=== PATIENT | male | born 1945 | race Asian ===

== ENCOUNTER 2019-11-26 12:04 | Outpatient (CLI) | payer MEDICARE, SELFPAY | END 2019-11-26 12:05 | disposition home or self-care (01) | PROVIDERS: PCP Family Medicine; Visit Provider Internal Medicine Critical Care Medicine | DX: J84.112 Idiopathic pulmonary fibrosis (principal) | CPT/HCPCS: 36415; 86038; 86331; 86606; 86609 ==

== ENCOUNTER 2019-11-28 09:48 | Outpatient (CLI) | payer MEDICARE, SELFPAY ==
--- NOTE | ~2019-11-28 | CT_ITS ---
EXAMINATION: CT chest high resolution [place] DATE: 11/28/2019 10:17 INDICATION: Idiopathic pulmonary fibrosis TECHNIQUE: Computed tomography (CT) of the chest was performed without intravenous contrast. The dose -length product (DLP) was 167.23 mGy-cm. Automated exposure control and iterative reconstruction tech Shookque were employed. COMPARISON: 05/01/2019 FINDINGS: There are stable widespread subpleural and reticular opacities with a mid and lower lung zo ne predominance. Honeycombing is also seen in many of the affected areas. Calcified pleural plaques a re present which can be seen in the setting of prior asbestos exposure. There is no pleural effusion or pneumothorax. The heart size is normal. There is a moderate-sized sliding hiatal hernia. Stones ar e present in the nondistended gallbladder. There is a 4.4 cm cyst of the left kidney with thin improvement intern al septation and calcification. There are changes of aortic valve replacement. There is mild thoracic spondylosis. IMPRESSION: 1. Stable chronic interstitial lung disease in a pattern of usual interstitial pneumonia. Reviewed, dictated and finalized at location A.
== END 2019-11-28 09:49 | disposition home or self-care (01) ==
LOC: ANHIMG 09:55
PROVIDERS: PCP Family Medicine; Visit Provider Internal Medicine Critical Care Medicine
DX: J84.112 Idiopathic pulmonary fibrosis (principal)
CPT/HCPCS: 71250

== ENCOUNTER 2020-02-18 14:35 | Outpatient (CLI) | payer MEDICARE, SELFPAY ==
[2020-02-18 14:59] VITALS: PULSE 90; O2SAT 95
[2020-02-18 15:00] VITALS: PULSE 100; O2SAT 88
[2020-02-18 15:02] VITALS: PULSE 102; O2SAT 89
[2020-02-18 15:03] VITALS: PULSE 100; O2SAT 90
--- NOTE | 2020-02-18 15:05 | HOMEO2EVAL ---
Home Oxygen Evaluation RC: Home Oxygen (O2) Evaluation Start: 02/18/20 14:58 Freq: Status: Active Protocol: RPE Activity Type Activity Date Activity User E-Sign Co-Sign Detail Recorded Client Recorded Date Recorded By Document 02/18/20 14:59 KRM [id number] 02/18/20 15:00 KRM Document 02/18/20 15:00 KRM [id number] 02/18/20 15:05 KRM Document 02/18/20 15:02 KRM [id number] 02/18/20 15:05 KRM Document 02/18/20 15:03 KRM [id number] 02/18/20 15:05 KRM 02/18/20 02/18/20 02/18/20 14:59 15:00 15:02 Home O2 Evaluation Test Phase Resting Exercise Exercise Oxygen Delivery Room Air Room Air Nasal Cannula Oxygen Flow Rate (L/min) 1 Pulse Oximetry (90-100 %) 95 88 L 89 L Pulse Rate (60-100 beats/min) 90 100 102 H Activity Tolerance Excellent Ambulation Distance (feet) Home Oxygen Evaluation Comments Treatment Charges O2 Evaluation 02/18/20 15:03 Home O2 Evaluation Test Phase Exercise Oxygen Delivery Nasal Cannula Oxygen Flow Rate (L/min) 2 Pulse Oximetry (90-100 %) 90 Pulse Rate (60-100 beats/min) 100 Activity Tolerance Ambulation Distance (feet) 250 Home Oxygen Evaluation Comments 2 L WITH ACTIVITY Treatment Charges
== END 2020-02-18 14:36 | disposition home or self-care (01) ==
PROVIDERS: PCP Family Medicine; Visit Provider Internal Medicine Critical Care Medicine
DX: R09.02 Hypoxemia (principal); J84.112 Idiopathic pulmonary fibrosis; R06.02 Shortness of breath
CPT/HCPCS: 94618

== ENCOUNTER 2020-03-15 11:43 | Outpatient (CLI) | payer MEDICARE, SELFPAY ==
[2020-03-15 12:33] LABS: Alanine Aminotransferase 13 U/L (4-50); Alkaline Phosphatase 39 U/L (38-126); Aspartate Amino Transferase 31 U/L (17-59); Bilirubin,Total 0.4 mg/dL (0.2-1.3)
== END 2020-03-15 11:44 | disposition home or self-care (01) ==
PROVIDERS: PCP Family Medicine; Visit Provider Internal Medicine Critical Care Medicine
DX: J84.112 Idiopathic pulmonary fibrosis (principal)
CPT/HCPCS: 36415; 80076

== ENCOUNTER 2021-01-13 13:31 | Outpatient (CLI) | payer MEDICARE, SELFPAY ==
--- NOTE | ~2021-01-13 | XR_ITS ---
EXAMINATION: XR lumbar spine min 4V, XR sacroiliac joints min 3V EXAM DATE: 01/13/2021 13:59 (accession [id number]), 01/13/2021 14:00 (accession [id number]) INDICATION: M54.30 - Sciatica, right-sided low back pain, no known recent injury. TECHNIQUE: Lumber spine frontal, lateral, bilateral oblique projections. Coned down frontal and lat eral L5-S1 lumbar projections for interpretation. Sacroiliac joints frontal and bilateral oblique pr ojections. There are no prior studies for comparison. FINDINGS: There are no acute fractures identified. Vertebral body heights are maintained. There is mo derate disc disease at L1-2 and L2-3, mild to moderate at the other lumbar levels. There is moderate mid lumbar, moderate to severe lower lumbar facet arthropathy. The vertebral bodies are aligned in th e AP dimension. There is mild lumbar levoscoliosis. Sacrum, sacroiliac joints, sacral arcuate line s are intact. No spondylolysis suspected. Moderate aortic arteriosclerosis. IMPRESSION: 1. Moderate to severe lumbar spondylosis. 2. Unremarkable sacrum. Reviewed, dictated and finalized at location A. IMPRESSION: 1. Moderate to severe lumbar spondylosis. 2. Unremarkable sacrum.
== END 2021-01-13 13:32 | disposition home or self-care (01) ==
PROVIDERS: PCP Physician Assistant; Visit Provider Physician Assistant
DX: M47.816 Spondylosis without myelopathy or radiculopathy, lumbar region (principal); M54.30 Sciatica, unspecified side
CPT/HCPCS: 72110; 72202

== ENCOUNTER 2021-02-25 09:34 | Outpatient (CLI) | payer MEDICARE, SELFPAY ==
--- NOTE | ~2021-02-25 | CT_ITS ---
EXAMINATION: CT chest high resolution wo ri DATE: 02/25/2021 10:29 INDICATION: Idiopathic pulmonary fibrosis TECHNIQUE: Computed tomography (CT) of the chest was performed without intravenous contrast. The dose -length product was 177.37 mGy-cm. Automated exposure control and iterative reconstruction technique were employed. COMPARISON: CT dated 11/28/2019 FINDINGS: Cardiomegaly. There is atherosclerosis. There is progression of extensive course interstiti al lung disease of the periphery, consistent with idiopathic pulmonary fibrosis. Findings have progre ssed most significantly in the left lower lobe. There is honeycombing present out predominantly affec ting the lower lobes. There are calcified bilateral pleural plaques, consistent with previous asbesto s exposure. Heart size is normal. Stable left renal cyst with internal septation and calcification. T here are surgical changes of aortic valve replacement. Mild thoracic spondylosis. No pneumothorax. Th ere are gallstones. IMPRESSION: 1. Interval progression of severe chronic interstitial lung disease consistent with idiopathic pulmon caron fibrosis. Reviewed, dictated and finalized at location B. IMPRESSION: 1. Interval progression of severe chronic interstitial lung disease consistent with idiopathic pulmonary fibrosis.
--- NOTE | 2021-02-25 10:20 | PCRCNOTE ---
PT CAME IN FOR PFT, PT UNABLE TO PERFORM. PT HAD CONTINUOUS COUGH. DR. AWAD'S OFFICE NOTIFIED, SPOKE WITH SHIRA.
== END 2021-02-25 09:35 | disposition home or self-care (01) ==
PROVIDERS: PCP Family Medicine; Visit Provider Internal Medicine Critical Care Medicine
DX: J84.112 Idiopathic pulmonary fibrosis (principal)
CPT/HCPCS: 71250

== ENCOUNTER 2021-08-19 13:24 | Outpatient (CLI) | payer MEDICARE, SELFPAY ==
--- NOTE | ~2021-08-19 | CT_ITS ---
EXAMINATION: CT chest high resolution [facility] EXAM DATE: 08/19/2021 13:48 INDICATION: J84.112 - Idiopathic pulmonary fibrosis . TECHNIQUE: Spiral CT of the chest without contrast. HRCT. Axial, coronal and sagittal images of the c hest were reviewed. Coronal maximum intensity pixel images of chest reviewed. The dose-length produ ct (DLP) for this examination was 139.75 mGy-cm. The exposure was tailored according to patient size (auto mA exposure control), and iterative reconstruction (ASIR) was used as additional dose reductio n technique. Comparison is made to prior examination from 02/25/2021, 05/01/2019. FINDINGS: Going back to last several years, there is continued mild progression in the severe usual i nterstitial pneumonitis pattern interstitial lung disease. Some possible etiologies include collagen vascular disease, chronic hypersensitivity pneumonitis, medications/drugs, prior viral infection, asb estosis, or can be idiopathic. Calcified pleural plaques along the left hemidiaphragm, could indicate prior asbestos exposure. There are no pleural or pericardial effusions. Tracheobronchial tree is p atent. There is no mediastinal, hilar or axillary lymphadenopathy. There is no pneumothorax. Aort ic valve replacement. Heart normal in size. There are sternotomy wires, and cardiac/coronary surgic al changes. Correlate with prior history. There is small sliding gastroesophageal hiatal hernia. Mul tiple small gallstones. Incompletely imaged left renal lesion, imaged portion is consistent with a 3. 4 cm cyst. There is thoracic spondylosis without osteoblastic or osteolytic lesions identified. IMPRESSION: 1. Severe chronic interstitial lung disease, mild continued progression. 2. Small hiatal hernia. 3. Cholelithiasis. Reviewed, dictated and finalized at location B.
== END 2021-08-19 13:25 | disposition home or self-care (01) ==
PROVIDERS: PCP Family Medicine; Visit Provider Internal Medicine Critical Care Medicine
DX: J84.112 Idiopathic pulmonary fibrosis (principal); K44.9 Diaphragmatic hernia without obstruction or gangrene; K80.20 Calculus of gallbladder without cholecystitis without obstruction; J84.9 Interstitial pulmonary disease, unspecified
CPT/HCPCS: 71250

== ENCOUNTER 2022-07-21 14:58 | Outpatient (CLI) | payer MEDICARE, SELFPAY ==
--- NOTE | ~2022-07-21 | CT_ITS ---
EXAMINATION: CT chest high resolution wo co DATE: 07/21/2022 15:27 INDICATION: UIP TECHNIQUE: Computed tomography (CT) of the chest was performed without intravenous contrast. Addition al 3D reconstructions utilizing coronal maximum intensity projection (MIP) were performed. Automated exposure control and iterative reconstruction technique were employed. The dose-length product was 19 5.69 mGy-cm. COMPARISON: Chest CT dated 08/19/2021 FINDINGS: No interval change in bilateral peripheral and lower lung predominant irregular septal line thickenin g, patchy consolidation, honeycombing and volume loss in the lower lobes consistent with usual inters titial pneumonia (UIP) pattern chronic interstitial lung disease. Unilateral calcified pleural plaque s in the left hemithorax consistent with prior exudative effusion. Couple small calcified lymph nodes in the right right middle lobe along with calcified right hilar and mediastinal lymph nodes consiste nt with old granulomatous disease. No new airspace opacities, pleural effusion or pneumothorax. Heart size is normal. Atherosclerotic coronary artery calcifications. Postoperative change of prior median sternotomy and coronary artery bypass grafting and aortic valve repair. There is retained epicardial pacemaker leads. Enlargement of the central pulmonary arteries consistent with pulmonary 2 hypertens ion. Small sliding-type hiatal hernia. Thoracic aorta is normal in caliber. No pathologically enlarge d abdominal or pelvic lymphadenopathy. Numerous calcified gallstones nearly filling the partially dec ompressed, otherwise normal-appearing gallbladder. Partial rim calcification along a 3.0 cm left shivani l cyst. There is calcified atherosclerosis of the aorta and bilateral renal arteries. Mild thoracic s pondylosis. Unchanged chronic T10 compression fracture with 20% anterior vertebral body height loss. IMPRESSION: 1. No significant interval change in severe chronic interstitial lung disease with usual interstitial pneumonia (UIP) pattern. 2. Enlargement of the central pulmonary arteries consistent with portal venous hypertension. 3. Small sliding-type hiatal hernia. 4. Cholelithiasis. Reviewed, dictated and finalized at location B. IMPRESSION: 1. No significant interval change in severe chronic interstitial lung disease w ith usual interstitial pneumonia (UIP) pattern. 2. Enlargement of the central pulmonary arteries consistent with portal venous hypertension. 3. Small sliding-type hiatal hernia. 4. Cholelithiasis.
== END 2022-07-21 14:59 | disposition home or self-care (01) ==
LOC: ANHIMG 15:05
PROVIDERS: PCP Family Medicine; Visit Provider Internal Medicine Critical Care Medicine
DX: J84.112 Idiopathic pulmonary fibrosis (principal); K44.9 Diaphragmatic hernia without obstruction or gangrene; K80.20 Calculus of gallbladder without cholecystitis without obstruction
CPT/HCPCS: 71250

== ENCOUNTER 2023-01-01 15:48 | Emergency (ER) | payer MEDICARE, SELFPAY ==
--- NOTE | ~2023-01-01 | XR_ITS ---
EXAMINATION: XR chest 1V portable DATE: 01/01/2023 20:33 INDICATION: Cough. TECHNIQUE: A single frontal view of the chest was obtained. COMPARISON: Chest 2 views 05/05/2015, chest CT 07/21/2022 FINDINGS: There is asymmetric mild volume loss of left hemithorax. There are airspace and interstitia l opacities in all lung zones bilaterally. No pleural effusion or pneumothorax. The heart size is nor mal. There are changes of aortic valve replacement. IMPRESSION: 1. Severe chronic interstitial lung disease, stable from 07/21/2022. Reviewed, dictated and finalized at location E.
--- NOTE | ~2023-01-01 | CT_ITS ---
EXAMINATION: CT abdomen pelvis w con DATE: 01/01/2023 21:22 INDICATION: Epigastric and left upper quadrant abdominal pain. TECHNIQUE: Computed tomography (CT) of the abdomen and pelvis was performed with 100 mL Omnipaque 350 intravenous contrast. Automated exposure control and iterative reconstruction technique were employe d. The dose-length product was 195.77 mGy-cm. COMPARISON: Chest CT 07/21/2022 FINDINGS: The visualized portions of the lung bases demonstrate severe chronic interstitial lung dise ase in a pattern of usual interstitial pneumonia (UIP). There are calcified pleural plaques bilateral ly, which may be seen with asbestosis exposure. Calcified right lung nodules are consistent with old granulomatous disease. There is a stable 6 mm nodule in lingula. There is a stable 4 mm nodule left l ower lobe. There is a 12 mm nodule in right lower lobe with worsening from 07/21/2022. No pleural effu helen. The heart size is normal. There are coronary artery calcifications. There is aortic valve repla cement. No pericardial effusion. There is a small sliding hiatal hernia. The liver is normal. There a re gallstones in the gallbladder, which is normal in size. Calcifications in the spleen are consisten t with old granulomatous disease. The pancreas, adrenal glands, and right kidney are normal. There is a 3.2 cm cyst in left kidney. There is calcified atherosclerosis of the aorta and many of the other arteries. The prostate is mildly enlarged. There are no dilated loops of bowel. The appendix is not v isualized. There is severe lumbar spondylosis. IMPRESSION: 1. Severe chronic interstitial lung disease in a pattern of usual interstitial pneumonia (UIP). 2. Worsened 12 mm nodule in right lower lobe suspicious for primary bronchogenic carcinoma. Consider PET/CT. 3. Small sliding hiatal hernia. Reviewed, dictated and finalized at location E. IMPRESSION: 1. Severe chronic interstitial lung disease in a pattern of usual interstitial pneumonia (UIP). 2. Worsened 12 mm nodule in right lower lobe suspicious for primary bronchogeni c carcinoma. Consider PET/CT. 3. Small sliding hiatal hernia.
[2023-01-01 16:13] VITALS: BP 102/58; PULSE 92; RESP 20; TEMP 36.9; O2SAT 96
[2023-01-01 16:32] LABS: Basophils Absolute Auto 0.1 K/mm3 (0.0-0.1); Eosinophils Absolute Auto 0.9 K/mm3 (0-0.3); Eosinophils Percent Auto 10.8 % (0-4.4); Hematocrit 32.9 % (42.0-52.0); Hemoglobin 10.6 g/dL (14.0-18.0); Immature Granulocyte Absolute 0.04 K/mm3 (0.00-0.031); Immature Granulocyte Percent A 0.5 % (0-0.5); Lymphocytes Absolute Auto 1.26 K/mm3 (0.9-3.2); Mean Corpuscular HGB Conc 32.2 g/dl (32-36); Mean Corpuscular Hemoglobin 31.6 pg (26-34); Mean Corpuscular Volume 98.2 fl (80-100); Mean Platelet Volume 8.4 fl (7.4-10.4); Monocytes Absolute Auto 0.7 K/mm3 (0.1-0.6); Monocytes Percent Auto 8.1 % (2.6-8.5); Neutrophils Absolute Auto 5.4 K/mm3 (1.3-6.7); Neutrophils Percent Auto 64.6 % (45.5-73.1); Platelet Count Result 230 k/mm3 (150-375); Red Blood Count 3.35 M/mm3 (4.6-6.20); Red Cell Distribution Width 11.9 % (11.5-14.5); White Blood Count 8.4 K/mm3 (4.5-10.0)
[2023-01-01 16:48] LABS: Alanine Aminotransferase 16 U/L (6-50); Albumin Level 4.2 g/dL (3.5-5.1); Alkaline Phosphatase 38 U/L (38-126); Aspartate Amino Transferase 32 U/L (17-59); Bilirubin,Total 0.3 mg/dL (0.2-1.3); Blood Urea Nitrogen 32 mg/dL (9-20); Calcium 9.3 mg/dL (8.4-10.2); Carbon Dioxide > 40 mmol/L (22-30); Chloride 94 mmol/L (98-107); Estimated CRCL calculation 31 ml/min; Estimated Glomerular Filt Rate > 60; Glucose 146 mg/dL (65-110); Potassium 4.3 mmol/L (3.4-5.0); Sodium 140 mmol/L (137-145)
[2023-01-01 19:52] VITALS: BP 165/83; PULSE 115; RESP 22; O2SAT 95
[2023-01-01 19:55] VITALS: O2SAT 100
--- NOTE | 2023-01-01 20:22 | ECG_ITS ---
Measurements Intervals [place] Rate: 84 P: 45 MD: 144 QRS: -1 QRSD: 96 T: 79 QT: 378 QTc: 449 Interpretive Statements SINUS RHYTHM INCOMPLETE RIGHT BUNDLE BRANCH BLOCK [90+ ms QRS DURATION, TERMINAL R IN V1/V2, 40+ ms S IN I/aVL/V4/V5/V6] NONSPECIFIC T-WAVE ABNORMALITY BORDERLINE ECG NO PREVIOUS ECG AVAILABLE FOR COMPARISON Electronically Signed On 01-02-2023 12:00:01 CDT by Elder Almanzar M.D.
[2023-01-01 20:35] VITALS: BP 139/79; PULSE 102; RESP 24; O2SAT 95
[2023-01-01 20:41] LABS: Appearance Urine Clear (Clear); Bilirubin Urine Negative (Negative); Blood Urine Negative (Negative); Color Urine Yellow (Yellow); Glucose Urine UA Negative (Negative); Ketones Urine Negative (Negative); Leukocyte Esterase Ur Negative LEU/UL (Negative); Nitrate Urine Negative (Negative); Protein Urine Negative (Negative); Specific Grav Ur 1.023 (1.001-1.035); Urobilinogen Urine 0.2 mg/dL (<2.0); pH Urine 6.5 (5.0-9.0)
[2023-01-01 20:43] LABS: Add Urine Microscopic? NO
[2023-01-01] MEDS: SODIUM CHLORIDE 0.9% IV 1,000 ML 999 ML IV CONT (20:56)
[2023-01-01] MEDS: ONDANSETRON INJ 4 MG/2 ML VIAL IV PUSH (20:57)
[2023-01-01 21:00] VITALS: BP 145/63; PULSE 95; RESP 25; O2SAT 100
[2023-01-01 21:20] LABS: Lipase 254 U/L (23-300); Magnesium 2.1 mg/dL (1.6-2.3)
[2023-01-01 21:30] LABS: Troponin I < 0.012 ng/mL (0.000-0.034)
--- NOTE | 2023-01-01 21:34 | ED.GENADULT ---
HPI - General Adult General Chief complaint: Abdominal Pain Stated complaint: lower left abd pain Time Seen by Provider: 01/01/23 19:57 History of Present Illness HPI narrative: Patient 77-year-old gentleman who presents the emergency department with chief complaint of epigastric and left upper quadrant pain. The patient states that he has had a sharp type pain in the left upper quadrant and epigastric region. The patient states that he is concerned that he may have pancreatitis or an issue with his spleen. Patient reports no fever chills does report that he has had a chronic cough due to his interstitial lung disease patient reports no fever patient denies vomiting or diarrhea. Related Data Home Medications Medication Instructions Recorded Confirmed aspirin 81 mg tablet,delayed 81 mg PO DAILY 04/18/19 10/16/22 release coenzyme Q10 100 mg capsule 100 mg PO DAILY 04/18/19 10/16/22 (CoQ-10) krill cap PO 04/18/19 10/16/22 qxv-fz7-lux-rsv-pc7-lmz-astax 1,500 mg-165 mg-67.5 mg capsule (Krill Oil ([place] 3 and 6)) turmeric 400 mg capsule mg PO 04/18/19 10/16/22 berberine-herbal comb no.18 capsule cap PO 04/21/19 10/16/22 vuipjthc-qj-rqbvk 300 mcg-K 60 1 tablet PO DAILY 01/29/20 10/16/22 mcg-lycop 600 mcg-lutein 300 mcg tablet (Centrum Silver Men) alirocumab 75 mg/mL subcutaneous 75 mg subcut Q14D 01/05/21 10/16/22 pen injector (Praluent Pen) fenofibrate 54 mg tablet 54 mg PO DAILY 01/05/21 10/16/22 dextromethorphan HBr 10 mg/5 mL 10 mg PO ONCE PRN 11/17/21 10/16/22 oral liquid Allergies Allergy/AdvReac Type Severity Reaction Status Date / Time bee pollen Allergy Unknown unknown Verified 01/01/23 21:03 Review of Systems Review of Systems: A 10 system review of systems was completed on the patient and is negative except for what is stated in the HPI. Nursing and ancillary documentation was reviewed. [facility] Past Medical History Medical History CAD in [place] artery Coronary artery disease (CAD) excluded History of aortic valve stenosis History of colon polyps ILD (interstitial lung disease) IPF (idiopathic pulmonary fibrosis) Latent tuberculosis Mild intermittent asthma without complication SOB (shortness of breath) Surgical History Surgical History History of aortic valve replacement Family History Family History Mother Family history of respiratory disorder, Onset Age: 82 Cerebrovascular accident Diabetes mellitus Hypertension Father Family history of alcoholism Social History Social History Smoking status: Never smoker Second hand tobacco smoke exposure: No Alcohol intake: current Substance use: never Substance use type: does not use Lack of Transportation: No Lack of Food: Never True Current Housing: I Have Housing Concerned About Future Housing: No Difficulty Paying Gas/Electric Bills: No Difficulty Paying for Meds: No Currently Unemployed: No Education: Master's Degree or Higher Difficulty w/ Childcare or Family Care: No Living arrangements: with family Occupation/Education: retired Gender identity (if verbalized by the patient): Male Sexual Orientation (if Verbalized by the Patient): Straight or Heterosexual Spiritual care concerns: No Agree to blood products: Yes Exam Narrative: GENERAL: Well-appearing, well-nourished, and in no acute distress. HEAD: Normocephalic, atraumatic. EYES: PERRLA and EOMI. ENT: Nares clear, no rhinorrhea or epistaxis. Mucous membranes moist. NECK: Supple. CHEST: Clear to auscultation. No respiratory distress. HEART: Regular rate and rhythm. No murmur heard. Normal peripheral pulses. ABDOMEN: Soft, nontender, nondistended, normal active bowel s
[2023-01-01 23:05] LABS: Partial Thromboplastin Time 32.3 SECONDS (22.3-36.8); Prothrombin Time 13.8 Seconds (11.1-14.7)
== END 2023-01-01 21:59 | disposition home or self-care (01) ==
PROVIDERS: Emergency Medicine; Emergency Provider Emergency Medicine; PCP Family Medicine
DX: R10.13 Epigastric pain (principal); K44.9 Diaphragmatic hernia without obstruction or gangrene; R91.1 Solitary pulmonary nodule; J84.89 Other specified interstitial pulmonary diseases; I25.10 Atherosclerotic heart disease of native coronary artery without angina pectoris; J45.909 Unspecified asthma, uncomplicated
CPT/HCPCS: 36415; 71045; 74177; 80053; 81003; 83605; 83690; 83735; 84484; 85025; 85610; 85730; 93005; 96361; 96374; 99284; J2405; J7030; Q9967

== ENCOUNTER 2023-03-02 09:30 | Outpatient (RCR) | payer MEDICARE, SELFPAY | END 2023-05-14 16:14 | disposition home or self-care (01) | LOC: ANHCPREHAB 09:30 | PROVIDERS: PCP Family Medicine | DX: J84.10 Pulmonary fibrosis, unspecified (principal) | CPT/HCPCS: 94625; G0239 ==

== ENCOUNTER 2023-03-13 13:16 | Outpatient (CLI) | payer MEDICARE, SELFPAY ==
--- NOTE | ~2023-03-13 | PE_ITS ---
EXAMINATION: PET skull to mid thigh DATE: 03/13/2023 15:53 INDICATION: Right lower lobe pulmonary nodule. TECHNIQUE: Blood glucose level was 126 mg/dL. 9.573 mCi of 18-fluorodeoxyglucose (18-FDG) was adminis tered i.v. Low dose computed tomography (CT) images were acquired from the base of the brain to the p roximal thighs for attenuation correction and anatomic localization. Automated exposure control was e mployed. Dose-length product (DLP) was 371 mGy-cm. Positron emission tomography (PET) images were acq uired in the same distribution. COMPARISON: CT abdomen and pelvis 01/01/2023, chest CT 07/21/2022 FINDINGS: Head/neck: There are no pathologically enlarged lymph nodes. Chest: The lung volumes are small. The lungs demonstrate widespread septal thickening with peripheral airspace and groundglass opacities and areas of honeycombing, consistent with chronic interstitial l claudia disease in a pattern of usual interstitial pneumonia (UIP). There are calcified pleural plaques b ilaterally, which may be seen with asbestos exposure. No pleural effusion. The heart size is normal. There are coronary artery calcifications. There are changes of coronary artery bypass grafting. There is a prosthetic aortic valve. No pericardial effusion. There is a small sliding hiatal hernia. Abdomen/pelvis/proximal thighs: The liver is normal. There are gallstones in the gallbladder, which i s normal in size. Calcifications in the spleen are consistent with old granulomatous disease. The wilson creas and right adrenal gland are normal. There is a 16 mm mass in left adrenal gland with attenuatio n of 18 HU without increased activity, stable from 07/21/22, likely an adenoma. Right kidney is normal . There is a 2.9 cm cyst in left kidney. There are no dilated loops of bowel. There is calcified athe rosclerosis of the aorta and many of the other arteries. There are no pathologically enlarged lymph n odes. There is no free intraperitoneal fluid. IMPRESSION: 1. No evidence of malignancy. 2. Chronic interstitial lung disease in a pattern of UIP. Reviewed, dictated and finalized at location E. MANAGER
[2023-03-13 14:12] LABS: Glucose Point of Care 126 mg/dl (65-105)
== END 2023-03-13 13:17 | disposition home or self-care (01) ==
PROVIDERS: PCP Family Medicine; Visit Provider Internal Medicine Critical Care Medicine
DX: R91.1 Solitary pulmonary nodule (principal); J84.9 Interstitial pulmonary disease, unspecified
CPT/HCPCS: 78815; A9552

== ENCOUNTER 2023-05-04 14:55 | Inpatient (IN) | payer MEDICARE, SELFPAY ==
[2023-05-04] VITALS (18 sets, daily range): BP systolic 118–146; BP diastolic 62–88; PULSE 88–103; RESP 24–42; TEMP 36.6; O2SAT 88–100
--- NOTE | ~2023-05-04 | XR_ITS ---
EXAMINATION: XR chest 1V portable DATE: 05/05/2023 05:33 INDICATION: Pneumothorax. TECHNIQUE: A single frontal view of the chest was obtained. COMPARISON: Chest 2 views 05/04/2023, chest single view 01/01/2023, chest CT 05/04/2023 FINDINGS: There is a diffuse coarse interstitial pattern in the lungs. There is a small left pneumoth orax. No pleural effusion. The heart size is normal. There are changes of aortic valve replacement. IMPRESSION: 1. Stable small left pneumothorax. 2. Stable diffuse lung disease, consistent with severe chronic interstitial lung disease. Reviewed, dictated and finalized at location A. TH AND WELLNESS ADVISOR IMPRESSION: 1. Stable small left pneumothorax. 2. Stable diffuse lung disease, consistent with severe chronic interstitial shanice g disease.
--- NOTE | ~2023-05-04 | XR_ITS ---
Portable chest x-ray Comparison: 05/06/2023 Clinical History: Pneumothorax Findings: Loculated small lateral left pneumothorax is similar to prior exam. Diffuse interstitial d isease is again present. Slightly more confluent haziness of the lateral right upper lobe is again pr esent. Cardiomediastinal silhouette is stable. Bones and soft tissues are unremarkable. Impression: Stable loculated small left lateral pneumothorax. Diffuse interstitial disease and haziness in the right upper lobe are stable findings from prior exam . Reviewed, dictated and finalized at [facility]. STAFF Impression: Stable loculated small left lateral pneumothorax. Diffuse interstitial disease and haziness in the right upper lobe are stable fi ndings from prior exam.
--- NOTE | ~2023-05-04 | CT_ITS ---
EXAMINATION: CT diagnostic chest wo con DATE: 05/04/2023 17:50 INDICATION: pneumothorax TECHNIQUE: Computed tomography (CT) of the chest was performed without intravenous contrast. Addition al 3D reconstructions utilizing coronal maximum intensity projection (MIP) were performed. Automated exposure control and iterative reconstruction technique were employed. The dose-length product was 13 4.36 mGy-cm. COMPARISON: 07/21/2022 FINDINGS: Interval progression of widespread peripheral and lower lung, septal thickening with peripheral airsp anabel and groundglass opacities and areas of honeycombing, consistent with progression of chronic inter stitial lung disease in a pattern of usual interstitial pneumonia (UIP). Also clinical bronchiectasis associated with the regions of interstitial lung disease. Unilateral left-sided calcified pleural pl aques which suggests sequela of a chronic exudative effusion. Small left pneumothorax loculated along the lateral left mid to lower lung. Heart size is normal. Atherosclerotic coronary artery calcificat ions and change of prior mediastinum and coronary artery bypass grafting. Aortic valve replacement. N o pericardial or pleural effusion. Thoracic aorta is normal in caliber. Calcified mediastinal lymph n odes consistent with old granulomatous disease. No pathologically enlarged thoracic lymphadenopathy. Small sliding-type hiatal hernia. Multiple calcified gallstones in the dependent aspect of the otherw ise normal-appearing nondilated gallbladder. A few tiny splenic calcifications consistent with old gr anulomatous disease. 2.8 cm left renal cyst. Mild thoracic and moderate lower cervical spondylosis. IMPRESSION: 1. Small likely loculated left pneumothorax at the lateral mid and lower lung zone. The loculation ma y be a sequela of calcific pleural plaques with scarring related to a prior exudative left pleural ef fusion. 2. Interval progression of chronic interstitial lung disease in a pattern of UIP. 3. Cholelithiasis. Reviewed, dictated and finalized at location A. ESTATE MANAGEMENT SPECIALIST IMPRESSION: 1. Small likely loculated left pneumothorax at the lateral mid and lower lung z one. The loculation may be a sequela of calcific pleural plaques with scarring related to a prior exudative left pleural effusion. 2. Interval progression of chronic interstitial lung disease in a pattern of UI P. 3. Cholelithiasis.
--- NOTE | ~2023-05-04 | CT_ITS ---
EXAMINATION: CT brain wo con DATE: 05/04/2023 15:51 INDICATION: Altered mental status and somnolence and confusion TECHNIQUE: Computed tomography (CT) of the head was performed without intravenous contrast. Sagittal and coronal reconstructions were performed. The mA was adjusted according to patient size. Iterative reconstruction technique was employed. The dose-length product was 605.33 mGy-cm. COMPARISON: None FINDINGS: Small focus of encephalomalacia consistent with chronic infarct along a gyrus in the right frontopari etal region. No acute intracranial hemorrhage, acute infarction or abnormal extra axial fluid collect ion. There is mild scattered white matter hypoattenuation consistent with chronic small vessel ischem ic disease. Symmetric prominence of the sulci consistent with mild age-appropriate diffuse cerebral v olume loss. Ventricles are normal and symmetric. No mass/mass effect. Changes of bilateral intraocula r lens replacement. The orbits and mastoid air cells are normal. Mucosal thickening and air cell opac ification in the bilateral ethmoid sinuses. Intracranial calcified cerebral atherosclerosis is noted. IMPRESSION: 1. 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 No acute intracranial process. 2. Age-related changes including mild diffuse volume loss and mild scattered white matter hypoattenua tion consistent with chronic small vessel ischemic disease. Reviewed, dictated and finalized at location A. NETWORK ARCHITECT IMPRESSION: 1. 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 No acute intracranial process. 2. Age-related changes including mild diffuse volume loss and mild scattered wh ite matter hypoattenuation consistent with chronic small vessel ischemic diseas e.
--- NOTE | ~2023-05-04 | XR_ITS ---
Portable chest x-ray Comparison: 05/08/2023 Clinical History: Left pneumothorax Findings: Small loculated left lateral pneumothorax is present. Extensive chronic interstitial disea se and/or COPD changes present. Stable from prior exam. Cardiomediastinal silhouette is stable. Bone s and soft tissues are unremarkable. Impression: Small loculated left lateral pneumothorax. Diffuse chronic interstitial disease or COPD change. Reviewed, dictated and finalized at location . GRATION SPECIALIST Impression: Small loculated left lateral pneumothorax. Diffuse chronic interstitial disease or COPD change.
--- NOTE | ~2023-05-04 | XR_ITS ---
EXAMINATION: XR chest 1V portable DATE: 05/06/2023 05:44 INDICATION: Shortness of breath. TECHNIQUE: A single frontal view of the chest was obtained. COMPARISON: Chest single view 05/05/2023 FINDINGS: There are coarse interstitial opacities throughout the lungs bilaterally. There are airspac e opacities in right midlung zone and all left lung zones. There are calcified pleural plaques on the left. There is a small left pneumothorax. No pleural effusion. The heart size is normal. There are c hanges of aortic valve replacement. IMPRESSION: 1. Stable small left pneumothorax. 2. Stable diffuse lung disease, consistent with severe chronic interstitial lung disease. Reviewed, dictated and finalized at location A. ANCE LEARNING UNIT LEADER IMPRESSION: 1. Stable small left pneumothorax. 2. Stable diffuse lung disease, consistent with severe chronic interstitial shanice g disease.
--- NOTE | ~2023-05-04 | XR_ITS ---
Portable chest x-ray Comparison: 05/10/2023 Clinical History: Pneumothorax Findings: Small lateral left loculated pneumothorax is again present. Diffuse interstitial disease i s unchanged. Cardiomediastinal silhouette is stable, status post aortic valve replacement and possib le CABG. Bones and soft tissues are unremarkable. Impression: No interval change. Stable small lateral left loculated pneumothorax. Diffuse chronic interstitial disease, unchanged. Reviewed, dictated and finalized at location . IOLOGY TECH Impression: No interval change. Stable small lateral left loculated pneumothorax. Diffuse chronic interstitial disease, unchanged.
--- NOTE | ~2023-05-04 | XR_ITS ---
XR chest 2V 05/04/2023 15:55 Indication: Shortness of breath Procedure: 2 view chest Comparison: Comparison to multiple prior studies sequentially, with oldest reviewed study dated 01/31. Findings: Interval development of small left pneumothorax. There is severe chronic interstitial lung disease. Cannot exclude superimposed pneumonia. No acute osseous abnormality. Impression: 1: New small left pneumothorax. 2: Severe chronic interstitial lung disease. Cannot exclude acute superimposed pneumonia. Reviewed, dictated and finalized at location A. INTERN Impression: 1: New small left pneumothorax. 2: Severe chronic interstitial lung disease. Cannot exclude acute superimposed pneumonia.
--- NOTE | 2023-05-04 14:58 | ECG_ITS ---
Measurements Intervals [place] Rate: 94 P: 23 MD: 127 QRS: 76 QRSD: 91 T: -18 QT: 334 QTc: 418 Interpretive Statements SINUS RHYTHM INCOMPLETE RIGHT BUNDLE BRANCH BLOCK [90+ ms QRS DURATION, TERMINAL R IN V1/V2, 40+ ms S IN I/aVL/V4/V5/V6] NONSPECIFIC T-WAVE ABNORMALITY COMPARED TO ECG 01/01/2023 20:45:46 NO SIGNIFICANT CHANGES Electronically Signed On 05-06-2023 14:20:35 FIRER TUNNEL KILN by Solitario Orellana M.D.
--- NOTE | 2023-05-04 15:09 | ED.AMS ---
HPI - Altered Mental Status General Chief Complaint: Altered Mental Status Stated Complaint: AMS Time Seen by Provider: 05/04/23 15:03 History of Present Illness HPI narrative: Patient is a 77-year-old male with history of idiopathic pulmonary fibrosis, on 2-3 L of home oxygen at baseline here with some increased confusion. at bedside notes that it seems to worsen over the last couple of days. She notes that he seems to be more tired than usual and a bit more confused than usual. They deny any changes in his shortness of breath from baseline. He denies fever or chills. No recent cough. No urinary changes. No falls or head injury. Related Data Home Medications Medication Instructions Recorded Confirmed aspirin 81 mg tablet,delayed 81 mg PO DAILY 04/18/19 02/28/23 release coenzyme Q10 100 mg capsule 100 mg PO DAILY 04/18/19 02/28/23 (CoQ-10) krill cap PO 04/18/19 02/28/23 pqg-jn3-vrs-bus-wt9-wwc-astax 1,500 mg-165 mg-67.5 mg capsule (Krill Oil ([place] 3 and 6)) turmeric 400 mg capsule mg PO 04/18/19 02/28/23 berberine-herbal comb no.18 capsule cap PO 04/21/19 02/28/23 wobinvpz-se-dntbj 300 mcg-K 60 1 tablet PO DAILY 01/29/20 02/28/23 mcg-lycop 600 mcg-lutein 300 mcg tablet (Centrum Silver Men) alirocumab 75 mg/mL subcutaneous 75 mg subcut Q14D 01/05/21 02/28/23 pen injector (Praluent Pen) fenofibrate 54 mg tablet 54 mg PO DAILY 01/05/21 02/28/23 dextromethorphan HBr 10 mg/5 mL 10 mg PO ONCE PRN 11/17/21 02/28/23 oral liquid Allergies Allergy/AdvReac Type Severity Reaction Status Date / Time bee pollen Allergy Unknown unknown Verified 02/28/23 14:27 poison penelope extract Allergy Rash Verified 02/28/23 14:27 Review of Systems Review of Systems: All systems reviewed & are unremarkable except as noted in HPI and below PMFSH Past Medical History Medical History CAD in [place] artery Coronary artery disease (CAD) excluded History of aortic valve stenosis History of colon polyps ILD (interstitial lung disease) IPF (idiopathic pulmonary fibrosis) Latent tuberculosis Mild intermittent asthma without complication SOB (shortness of breath) Surgical History Surgical History History of aortic valve replacement Family History Family History Mother Family history of respiratory disorder, Onset Age: 82 Cerebrovascular accident Diabetes mellitus Hypertension Father Family history of alcoholism Social History Social History Smoking status: Never smoker Second hand tobacco smoke exposure: No Alcohol intake: current Substance use: never Substance use type: does not use Lack of Transportation: No Lack of Food: Never True Current Housing: I Have Housing Concerned About Future Housing: No Difficulty Paying Gas/Electric Bills: No Difficulty Paying for Meds: No Currently Unemployed: No Education: Master's Degree or Higher Difficulty w/ Childcare or Family Care: No Living arrangements: with family Occupation/Education: retired Gender identity (if verbalized by the patient): Male Sexual Orientation (if Verbalized by the Patient): Straight or Heterosexual Spiritual care concerns: No Agree to blood products: Yes Exam Narrative: GENERAL: Well-appearing, well-nourished, and in no acute distress. HEAD: Normocephalic, atraumatic. EYES: PERRLA and EOMI. ENT: Nares clear. Mucous membranes moist. NECK: Supple. CHEST: Clear to auscultation. No respiratory distress. On 3 L nasal cannula. HEART: Regular rate and rhythm. Normal peripheral pulses. ABDOMEN: Soft, nontender, nondistended. EXTREMITIES: Normal range of motion. No edema. SKIN: Warm, dry, no rash. NEURO: No focal deficits. Alert and oriented x3. PSYCH: Normal mood and affect.
[2023-05-04 15:16] LABS: Basophils Absolute Auto 0.1 K/mm3 (0.0-0.1); Basophils Percent Auto 0.8 % (0.2-1.2); Eosinophils Absolute Auto 0.2 K/mm3 (0-0.3); Eosinophils Percent Auto 1.9 % (0-4.4); Hematocrit 32.3 % (42.0-52.0); Hemoglobin 9.6 g/dL (14.0-18.0); Immature Granulocyte Absolute 0.03 K/mm3 (0.00-0.031); Immature Granulocyte Percent A 0.4 % (0-0.5); Lymphocytes Absolute Auto 1.31 K/mm3 (0.9-3.2); Lymphocytes Percent Auto 16.8 % (18.3-44.2); Mean Corpuscular HGB Conc 29.7 g/dl (32-36); Mean Corpuscular Hemoglobin 31.5 pg (26-34); Mean Corpuscular Volume 105.9 fl (80-100); Mean Platelet Volume 9.1 fl (7.4-10.4); Monocytes Absolute Auto 0.6 K/mm3 (0.1-0.6); Monocytes Percent Auto 7.3 % (2.6-8.5); Neutrophils Absolute Auto 5.7 K/mm3 (1.3-6.7); Neutrophils Percent Auto 72.8 % (45.5-73.1); Platelet Count Result 247 k/mm3 (150-375); Red Blood Count 3.05 M/mm3 (4.6-6.20); Red Cell Distribution Width 12.1 % (11.5-14.5); White Blood Count 7.8 K/mm3 (4.5-10.0)
[2023-05-04 15:33] LABS: Alanine Aminotransferase 13 U/L (6-50); Albumin Level 3.8 g/dL (3.5-5.1); Alkaline Phosphatase 42 U/L (38-126); Aspartate Amino Transferase 38 U/L (17-59); Bilirubin,Total 0.4 mg/dL (0.2-1.3); Blood Urea Nitrogen 23 mg/dL (9-20); Calcium 9.3 mg/dL (8.4-10.2); Carbon Dioxide > 40 mmol/L (22-30); Chloride 87 mmol/L (98-107); Estimated Glomerular Filt Rate > 60; Glucose 137 mg/dL (65-110); Potassium 4.9 mmol/L (3.4-5.0); Sodium 137 mmol/L (137-145)
[2023-05-04 15:37] LABS: Prothrombin Time 13.9 Seconds (11.1-14.7)
[2023-05-04 15:38] LABS: Partial Thromboplastin Time 34.4 SECONDS (22.3-36.8)
[2023-05-04 15:39] LABS: Fractional Inspired Oxygen 32 %; HCO3 VBG 52.3 mEq/l (24.0-30.0); PO2 VBG 33.7 mmHg (35.0-45.0)
[2023-05-04 15:42] LABS: Device NASAL CANNULA; PCO2 VBG 116.5 mmHg (42.0-48.0)
[2023-05-04 15:58] LABS: Troponin I 0.019 ng/mL (0.000-0.034)
[2023-05-04 17:45] LABS: Appearance Urine Clear (Clear); Bacteria Urine None Seen /hpf; Bilirubin Urine Negative (Negative); Blood Urine Trace (Negative); Color Urine Yellow (Yellow); Glucose Urine UA Negative (Negative); Ketones Urine Negative (Negative); Leukocyte Esterase Ur Negative LEU/UL (Negative); Nitrate Urine Negative (Negative); Non Pathogenic Casts 0-2; Protein Urine Negative (Negative); RBC Urine 0-2 /hpf (0-2); Specific Grav Ur 1.015 (1.001-1.035); Squamous Epithelial Cell Urine None seen /hpf (Few); Urobilinogen Urine 0.2 mg/dL (<2.0); WBC Urine 0-5 /hpf; pH Urine 6.5 (5.0-9.0)
[2023-05-04 18:10] LABS: Add Urine Microscopic? YES
[2023-05-04 18:59] LABS: Troponin I 0.015 ng/mL (0.000-0.034)
--- NOTE | 2023-05-04 19:18 | PC.NURSE ---
Assumed care of pt from EARNESTINE Orozco at this time.
[2023-05-04 20:23] LABS: Fractional Inspired Oxygen 40 %; HCO3 VBG 49.4 mEq/l (24.0-30.0); pH VBG 7.344 (7.300-7.400)
[2023-05-04 20:26] LABS: Device NON-INVASIVE VENT; PCO2 VBG 92.9 mmHg (42.0-48.0)
[2023-05-04 20:27] LABS: Non-Invasive Expiratory Pressure 6 CMH2O; Non-Invasive Inspiratory Pressure 12 CMH2O; Non-Invasive Vent Rate 4 /MIN
[2023-05-04 21:41] LABS: Influenza A QL RT-PCR Negative (Negative); Influenza B QL RT-PCR Negative (Negative); RSV RNA, RT-PCR Negative (Negative); SARS-CoV-2 RNA PCR Negative (Negative)
[2023-05-05] VITALS (26 sets, daily range): BP systolic 140–178; BP diastolic 68–80; PULSE 90–113; RESP 18–47; TEMP 36.1–37.5; O2SAT 48–100; BMI 13.9
--- NOTE | 2023-05-05 00:11 | ADMGEN ---
This patient, Rasta Capps, was admitted to IMU Room 201-01. Patient/family oriented to hospital policies and general routines including ID bracelet, bed and alarms, visiting hours, pain management, procedures, bathroom and other care routines, personal items, smoking policy, room service/diet, and visiting hours. Information on how to activate the Rapid Response Team has been discussed. Patient/Family are encouraged to report perceived risks to care and to ask questions if they do not understand what they are told or what they should do.
--- NOTE | 2023-05-05 00:45 | PM.IMHP ---
H&P: HPI History of Present Illness Date/Time: 05/05/23 00:45 Chief Complaint: altered mental status Narrative: 77M w/ PMH CAD s/p CABG on 12/10/22 w/ evidence of OM graft occlusion in 2016 denies further treatment, bioprosthetic aortic valve replacement, HLD, HTN, prediabetes, interstitial lung disease w/ IUP pattern w/ chronic hypoxic respiratory failure on 2-3L at home continuous, presents with altered mental status. He lives with . He has been declining for approx 6 months, becoming more weak, losing weight, and having to increase his o2 to 5L on exertion. On the day of admission, the noticed the patient becoming very somnolent. In the ED he was found to have a partial pressure of CO2 of 116.5. BIPAP placed with settings of 12/6 and rate of 4, patient's AMS resolved and repeat VBG revealed PCO2 of 92.9. Review of Systems Review of Systems: All systems reviewed & are unremarkable except as noted in HPI and below (HPI) FORMERLY [facility] Past Medical History Medical History CAD in [place] artery Coronary artery disease (CAD) excluded History of aortic valve stenosis History of colon polyps ILD (interstitial lung disease) IPF (idiopathic pulmonary fibrosis) Latent tuberculosis Mild intermittent asthma without complication SOB (shortness of breath) Surgical History Surgical History History of aortic valve replacement Family History Family History Mother Family history of respiratory disorder, Onset Age: 82 Cerebrovascular accident Diabetes mellitus Hypertension Father Family history of alcoholism Social History Social History Smoking status: Never smoker Second hand tobacco smoke exposure: No Alcohol intake: never Substance use: current Substance use type: does not use Lack of Transportation: No Lack of Food: Never True Current Housing: I Have Housing Concerned About Future Housing: No Difficulty Paying Gas/Electric Bills: No Difficulty Paying for Meds: No Currently Unemployed: No Education: Master's Degree or Higher Difficulty w/ Childcare or Family Care: No Living arrangements: with family Occupation/Education: retired Gender identity (if verbalized by the patient): Male Sexual Orientation (if Verbalized by the Patient): Straight or Heterosexual Spiritual care concerns: No Agree to blood products: Yes Meds Home Medications and Allergies Home Medications Medication Instructions Recorded Confirmed Type aspirin 81 mg tablet,delayed 81 mg PO DAILY 04/18/19 02/28/23 History release coenzyme Q10 100 mg capsule 100 mg PO DAILY 04/18/19 02/28/23 History (CoQ-10) krill cap PO 04/18/19 02/28/23 History uuw-hx0-stq-kns-nq3-rmf-astax 1,500 mg-165 mg-67.5 mg capsule (Krill Oil ([place] 3 and 6)) turmeric 400 mg capsule mg PO 04/18/19 02/28/23 History berberine-herbal comb no.18 capsule cap PO 04/21/19 02/28/23 History erjwreue-tq-zqorx 300 mcg-K 60 1 tablet PO DAILY 01/29/20 02/28/23 History mcg-lycop 600 mcg-lutein 300 mcg tablet (Centrum Silver Men) alirocumab 75 mg/mL subcutaneous 75 mg subcut Q14D 01/05/21 02/28/23 History pen injector (Praluent Pen) fenofibrate 54 mg tablet 54 mg PO DAILY 01/05/21 02/28/23 History albuterol sulfate 90 mcg/actuation 1 inh inhalation Q4H Shortness 02/15/21 02/28/23 Rx aerosol inhaler (Ventolin HFA) of breath, wheezing 1 month #8.5 grams dextromethorphan HBr 10 mg/5 mL 10 mg PO ONCE PRN 11/17/21 02/28/23 History oral liquid blood sugar diagnostic (Accu-Chek #100 ea 06/28/22 02/28/23 Rx SmartView Test Strips) pirfenidone 801 mg tablet (Esbriet) 801 mg PO TID 30 days #90 tabs 08/30/22 02/28/23 Rx Advair Diskus 500 mcg-50 mcg/dose See Rx Instructions .Route 10/04/22 02/28/23 Rx powder for inh
[2023-05-05] MEDS: methylPREDNISolone SOD SUCC 125 MG VIAL 60 MG IV PUSH ×4 (01:52→16:59)
[2023-05-05] MEDS: ALBUTEROL SULFATE NEB 2.5 MG/3 ML INH INHALATION ×4 (03:26→20:55)
[2023-05-05] MEDS: IPRATROPIUM BR 0.02% INH SOLN 0.5 MG/2.5 ML VIAL INHALATION ×4 (03:26→21:03)
[2023-05-05 04:14] LABS: Basophils Absolute Auto 0.1 K/mm3 (0.0-0.1); Basophils Percent Auto 0.8 % (0.2-1.2); Eosinophils Absolute Auto 0.1 K/mm3 (0-0.3); Eosinophils Percent Auto 0.6 % (0-4.4); Hematocrit 35.6 % (42.0-52.0); Hemoglobin 10.4 g/dL (14.0-18.0); Immature Granulocyte Absolute 0.05 K/mm3 (0.00-0.031); Immature Granulocyte Percent A 0.5 % (0-0.5); Lymphocytes Absolute Auto 0.79 K/mm3 (0.9-3.2); Lymphocytes Percent Auto 8.1 % (18.3-44.2); Mean Corpuscular HGB Conc 29.2 g/dl (32-36); Mean Corpuscular Hemoglobin 30.8 pg (26-34); Mean Corpuscular Volume 105.3 fl (80-100); Mean Platelet Volume 8.9 fl (7.4-10.4); Monocytes Absolute Auto 0.2 K/mm3 (0.1-0.6); Monocytes Percent Auto 2.4 % (2.6-8.5); Neutrophils Absolute Auto 8.5 K/mm3 (1.3-6.7); Neutrophils Percent Auto 87.6 % (45.5-73.1); Platelet Count Result 281 k/mm3 (150-375); Red Blood Count 3.38 M/mm3 (4.6-6.20); White Blood Count 9.7 K/mm3 (4.5-10.0)
[2023-05-05 04:36] LABS: Blood Urea Nitrogen 25 mg/dL (9-20); Calcium 9.6 mg/dL (8.4-10.2); Carbon Dioxide > 40 mmol/L (22-30); Chloride 87 mmol/L (98-107); Estimated CRCL calculation 40 ml/min; Estimated Glomerular Filt Rate > 60; Glucose 139 mg/dL (65-110); Magnesium 1.9 mg/dL (1.6-2.3); Potassium 4.5 mmol/L (3.4-5.0); Sodium 138 mmol/L (137-145)
[2023-05-05 05:06] LABS: Procalcitonin 0.1 ng/mL
[2023-05-05 08:54] LABS: Fractional Inspired Oxygen 32 %; HCO3 VBG 42.9 mEq/l (24.0-30.0); PO2 VBG 41.8 mmHg (35.0-45.0); pH VBG 7.336 (7.300-7.400)
[2023-05-05 08:57] LABS: Device NON-INVASIVE VENT
[2023-05-05 08:58] LABS: Non-Invasive Expiratory Pressure 6 CMH2O; Non-Invasive Inspiratory Pressure 12 CMH2O; Non-Invasive Vent Rate 4 /MIN
--- NOTE | 2023-05-05 09:26 | PM.IMPN ---
Progress Note: A&P Assessment and Plan (1) Acute hypercapnic respiratory failure: Code(s): J96.02 - Acute respiratory failure with hypercapnia Status: Acute (2) CO2 narcosis: Code(s): R06.89 - Other abnormalities of breathing Status: Acute (3) Pneumothorax on left: Code(s): J93.9 - Pneumothorax, unspecified Status: Acute (4) Chronic hypoxemic respiratory failure: Code(s): J96.11 - Chronic respiratory failure with hypoxia Status: Acute Plan 77M w/ PMH CAD s/p CABG on 12/10/22 w/ evidence of OM graft occlusion in 2016 denies further treatment, bioprosthetic aortic valve replacement, HLD, HTN, prediabetes, interstitial lung disease w/ IUP pattern w/ chronic hypoxic respiratory failure on 2-3L at home continuous, presents with altered mental status. He lives with . He has been declining for approx 6 months, becoming more weak, losing weight, and having to increase his o2 to 5L on exertion. On the days leading up to admission, the noticed the patient becoming very somnolent. In the ED he was found to have a partial pressure of CO2 of 116.5. BIPAP placed with settings of 12/6 and rate of 4, patient's AMS resolved and repeat VBG revealed PCO2 of 92.9. Admitted on 05/05/23.Chest x-ray with new small left pneumothorax. Severe chronic interstitial lung disease cannot exclude acute superimposed pneumonia. Acute hypoxic hypercapnic on chronic hypoxic respiratory failure. CT chest revealed a small loculated left pneumothorax at the lateral mid and lower lung zone and interval progression of his ILD. His AMS has resolved with BIPAP, will keep settings at 12/6 and rate of 4. With pneumothorax will try limit BiPAP use. May use Airvo. Treating as COPD exacerbation with solumedrol and schedules nebs. Pulmonary consultation. Will also add doxycycline Interstitial lung disease interval progression. Patient on pirfenidone Cachexia likely due to underlying pulmonary issue. Dietitian consultation Small loculated left pneumothorax monitor chest x-ray general surgery consulted from the ER SCDs. Full Code. Guarded. Needs to discuss goals of care. Subjective Date/time seen: 05/05/23 09:26 Interval history: 77 year old male with PMH CAD s/p CABG on 12/10/22 w/ evidence of OM graft occlusion in 2016 denies further treatment, bioprosthetic aortic valve replacement, HLD, HTN, prediabetes, interstitial lung disease w/ IUP pattern w/ chronic hypoxic respiratory failure on 2-3L at home continuous, presents with altered mental status. He lives with . He has been declining for approx 6 months, becoming more weak, losing weight, and having to increase his o2 to 5L on exertion. On the day of admission, the noticed the patient becoming very somnolent. In the ED he was found to have a partial pressure of CO2 of 116.5. BIPAP placed with settings of 12/6 and rate of 4, patient's AMS resolved and repeat VBG revealed PCO2 of 92.9. CT head with volar and for small on right frontoparietal region no acute intracranial process. Patient more alert, ate his meal this a.m.. Review of Systems Review of Systems: All systems reviewed & are unremarkable except as noted in HPI and below (HPI) Exam Narrative: GENERAL: Well-appearing, well-nourished, and in no acute distress. HEAD: Normocephalic, atraumatic. EYES: PERRLA and EOMI. ENT: Nares clear.? Mucous membranes moist. NECK: Supple. CHEST: Coarse breath sound bilaterally no respiratory distress.? On BiPAP HEART: Regular rate and rhythm.? Normal peripheral pulses. ABDOMEN: Soft, nontender, nondistended. EXTREMITIES: Normal range of motion.? No edema. SKIN: Warm, dry, no rash. NEURO: No focal deficits.? Alert and oriented x3. PSYCH: Normal mood and affect. Objective Data Vital Signs Vital Signs: Vital Signs - 24 hr 05/04/23 15:00 05/04/23 15:16 05/04/23 15:01 Temperature 98 F Pulse Rate 88 91 Respiratory Rate 27 H 36 H Blood Pressure 135/67 135/67
--- NOTE | 2023-05-05 09:54 | PCPTNOTE ---
Patient still on BiPap, nursing asking to hold today. Will check back tomorrow.
--- NOTE | 2023-05-05 10:19 | PCOTNOTE ---
Attempted OT evaluation. Patient still on BiPap, nursing asking to hold today. Will check back tomorrow.
--- NOTE | 2023-05-05 11:04 | PM.CNGS ---
Assessment and Plan Assessment and plan (1) Pneumothorax on left: Code(s): J93.9 - Pneumothorax, unspecified Status: Acute Assessment and Plan: small and unchanged this morning, chronic in nature, seems a loculated on CT, no need for acute surgical intervention at this point (2) Acute hypercapnic respiratory failure: Code(s): J96.02 - Acute respiratory failure with hypercapnia Status: Acute Assessment and Plan: respiratory and mental status seems improved, continue current management per medical team, await Pulmonary consultation History of Present Illness Consult details Consult date: 05/05/23 Reason for consult: other ( left pneumothorax) Requesting physician: Marisol Frazier MD Narrative: The patient is a 77-year-old male with multiple medical issues including severe interstitial lung disease requiring home O2 presenting to the emergency department with mental status change. Patient was found to have Respiratory failure and has been admitted to the medical service for further treatment of exacerbation. As part of the workup, imaging was significant for a small loculated left pneumothorax. As of this morning, the patient's mental status is improving. He is currently getting a respiratory treatment and on BiPAP so all history is obtained via nursing and chart. Review of Systems Review of Systems: ROS unobtainable: Yes unobtainable due to mental status and other ( On BiPAP) PMFSH Past Medical History Medical History CAD in [place] artery Coronary artery disease (CAD) excluded History of aortic valve stenosis History of colon polyps ILD (interstitial lung disease) IPF (idiopathic pulmonary fibrosis) Latent tuberculosis Mild intermittent asthma without complication SOB (shortness of breath) Surgical History Surgical History History of aortic valve replacement Family History Family History Mother Family history of respiratory disorder, Onset Age: 82 Cerebrovascular accident Diabetes mellitus Hypertension Father Family history of alcoholism Social History Social History Smoking status: Never smoker Second hand tobacco smoke exposure: No Alcohol intake: never Substance use: current Substance use type: does not use Lack of Transportation: No Lack of Food: Never True Current Housing: I Have Housing Concerned About Future Housing: No Difficulty Paying Gas/Electric Bills: No Difficulty Paying for Meds: No Currently Unemployed: No Education: Master's Degree or Higher Difficulty w/ Childcare or Family Care: No Living arrangements: with family Occupation/Education: retired Gender identity (if verbalized by the patient): Male Sexual Orientation (if Verbalized by the Patient): Straight or Heterosexual Spiritual care concerns: No Agree to blood products: Yes Meds Home Medications and Allergies Home Medications Medication Instructions Recorded Confirmed Type aspirin 81 mg tablet,delayed 81 mg PO DAILY 04/18/19 05/05/23 History release coenzyme Q10 100 mg capsule 100 mg PO DAILY 04/18/19 05/05/23 History (CoQ-10) krill 1 cap PO DAILY 04/18/19 05/05/23 History kug-ds8-tkb-znt-rs9-fxq-astax 1,500 mg-165 mg-67.5 mg capsule (Krill Oil ([place] 3 and 6)) turmeric 400 mg capsule 400 mg PO DAILY 04/18/19 05/05/23 History berberine-herbal comb no.18 capsule 1 cap PO DAILY 04/21/19 05/05/23 History oakvntjj-qt-rgmjr 300 mcg-K 60 1 tablet PO DAILY 01/29/20 05/05/23 History mcg-lycop 600 mcg-lutein 300 mcg tablet (Centrum Silver Men) alirocumab 75 mg/mL subcutaneous 75 mg subcut Q14D 01/05/21 05/05/23 History pen injector (Praluent Pen) fenofibrate 54 mg tablet 54 mg PO DAILY 01/05/21 05/05/23 History blo
[2023-05-05] MEDS: MEGESTROL ACETATE (*CHEMO) 40 MG TABLET PO ×2 (11:06→16:59)
[2023-05-05] MEDS: OPTI-GEN TAB 1 TABLET PO (11:06)
[2023-05-05] MEDS: ASPIRIN 81 MG ENTERIC TABLET PO (11:06)
[2023-05-05] MEDS: DOXYCYCLINE 100 MG/NS 100 ML 100 MG/100 ML BAG IVPB ×2 (16:58→21:19)
[2023-05-06] VITALS (27 sets, daily range): BP systolic 112–158; BP diastolic 63–77; PULSE 84–105; RESP 18–33; TEMP 36.6–37.3; O2SAT 90–100
[2023-05-06] MEDS: methylPREDNISolone SOD SUCC 125 MG VIAL 60 MG IV PUSH ×5 (00:14→23:35)
[2023-05-06 03:42] LABS: Fractional Inspired Oxygen 32 %; HCO3 VBG 42.5 mEq/l (24.0-30.0); PO2 VBG 31.9 mmHg (35.0-45.0); pH VBG 7.375 (7.300-7.400)
[2023-05-06 03:44] LABS: PCO2 VBG 74.4 mmHg (42.0-48.0)
[2023-05-06 03:45] LABS: Device NON-INVASIVE VENT; Non-Invasive Expiratory Pressure 6 CMH2O; Non-Invasive Inspiratory Pressure 12 CMH2O; Non-Invasive Vent Rate 14 /MIN
[2023-05-06 03:48] LABS: Basophils Percent Auto 0.1 % (0.2-1.2); Hematocrit 31.7 % (42.0-52.0); Immature Granulocyte Absolute 0.17 K/mm3 (0.00-0.031); Immature Granulocyte Percent A 1.2 % (0-0.5); Lymphocytes Percent Auto 3.5 % (18.3-44.2); Mean Corpuscular HGB Conc 31.5 g/dl (32-36); Mean Corpuscular Hemoglobin 31.5 pg (26-34); Mean Platelet Volume 8.5 fl (7.4-10.4); Monocytes Absolute Auto 0.3 K/mm3 (0.1-0.6); Monocytes Percent Auto 2.3 % (2.6-8.5); Neutrophils Absolute Auto 13.2 K/mm3 (1.3-6.7); Neutrophils Percent Auto 92.9 % (45.5-73.1); Platelet Count Result 264 k/mm3 (150-375); Red Blood Count 3.17 M/mm3 (4.6-6.20); Red Cell Distribution Width 11.9 % (11.5-14.5); White Blood Count 14.2 K/mm3 (4.5-10.0)
[2023-05-06] MEDS: MELATONIN 5 MG TABLET PO ×2 (03:54→20:52)
[2023-05-06] MEDS: ALBUTEROL SULFATE NEB 2.5 MG/3 ML INH INHALATION ×3 (04:05→19:46)
[2023-05-06] MEDS: IPRATROPIUM BR 0.02% INH SOLN 0.5 MG/2.5 ML VIAL INHALATION ×3 (04:05→19:46)
[2023-05-06 04:07] LABS: Alanine Aminotransferase 16 U/L (6-50); Albumin Level 3.8 g/dL (3.5-5.1); Alkaline Phosphatase 49 U/L (38-126); Aspartate Amino Transferase 33 U/L (17-59); Bilirubin,Total 0.4 mg/dL (0.2-1.3); Blood Urea Nitrogen 38 mg/dL (9-20); Calcium 9.3 mg/dL (8.4-10.2); Carbon Dioxide > 40 mmol/L (22-30); Chloride 89 mmol/L (98-107); Estimated CRCL calculation 36 ml/min; Estimated Glomerular Filt Rate > 60; Glucose 163 mg/dL (65-110); Magnesium 1.9 mg/dL (1.6-2.3); Potassium 4.1 mmol/L (3.4-5.0); Sodium 138 mmol/L (137-145)
[2023-05-06 04:52] LABS: Anisocytosis 1+ (NORMAL); Hypochromasia 1+ (NORMAL); Platelet Estimate Adequate (Adequate); Schistocytes None Seen (NORMAL)
[2023-05-06 06:14] LABS: Alveolar/Arterial O2 Gradient 75.8 mmHg; Carboxyhemoglobin 0.3 % THb (0-2.0); Fractional Inspired Oxygen 32 %; HCO3 ABG 39.7 mEq/l (22.0-26.0); Oxyhemoglobin 91.2 % THb (90.0-100.0); PO2 FiO2 Ratio Arterial Blood 2.13 %; Reduced Hemoglobin 8.5 %THb (0-5.0); Total Hemoglobin 10.1 g/dL (12.0-18.0); pH ABG 7.359 (7.350-7.450)
[2023-05-06] MEDS: MEGESTROL ACETATE (*CHEMO) 40 MG TABLET PO ×3 (06:24→17:01)
[2023-05-06 06:40] LABS: Device HIGH FLOW THERAPY; Modified Allen's Test Pass; PCO2 ABG 72.1 mmHg (35.0-45.0); Site Drawn LEFT RADIAL
[2023-05-06] MEDS: DOXYCYCLINE 100 MG/NS 100 ML 100 MG/100 ML BAG IVPB ×2 (09:24→20:52)
[2023-05-06] MEDS: ASPIRIN 81 MG ENTERIC TABLET PO (09:25)
[2023-05-06] MEDS: OPTI-GEN TAB 1 TABLET PO (09:25)
--- NOTE | 2023-05-06 12:03 | PM.PNGS ---
Progress Note: A&P Assessment and Plan (1) Pneumothorax on left: Code(s): J93.9 - Pneumothorax, unspecified Status: Acute Assessment and Plan: stable and chronic, does not require acute surgical intervention at this point, will s/o, call c ?s, issues (2) Acute hypercapnic respiratory failure: Code(s): J96.02 - Acute respiratory failure with hypercapnia Status: Acute Assessment and Plan: improved, cont mgmt per pulmonary Subjective Subjective Date/Time Seen: 05/06/23 12:03 Interval history: much more alert today, reports he feels much better Review of Systems Review of Systems: All systems reviewed & are unremarkable except as noted in HPI and below Exam Const: General: cooperative, comfortable, no acute distress and ill appearing Resp: Auscultation: diminished lung sounds Cardio: Rate: regular rate Rhythm: regular rhythm GI: Inspection: normal to inspection Objective Data Vital Signs Vital Signs: Vital Signs - 24 hr 05/05/23 13:15 05/05/23 13:26 05/05/23 13:35 Temperature Pulse Rate 90 107 H Respiratory Rate 35 H 38 H 36 H Blood Pressure Pulse Oximetry 97 Oxygen Delivery BiPAP Oxygen Flow Rate Fraction of Inspired Oxygen 05/05/23 16:00 05/05/23 14:00 05/05/23 16:00 Temperature 37.1 C Pulse Rate 103 H 113 H 106 H Respiratory Rate 22 H Blood Pressure 146/70 H Pulse Oximetry 100 Oxygen Delivery Oxygen Flow Rate Fraction of Inspired Oxygen 05/05/23 18:00 05/05/23 16:00 05/05/23 19:46 Temperature 37.5 C Pulse Rate 98 108 H Respiratory Rate 47 H Blood Pressure 149/77 H Pulse Oximetry 100 96 Oxygen Delivery Nasal Cannula Oxygen Flow Rate 4 Fraction of Inspired Oxygen 05/05/23 20:00 05/05/23 20:00 05/05/23 22:00 Temperature Pulse Rate 101 H 112 H Respiratory Rate Blood Pressure Pulse Oximetry 96 Oxygen Delivery BiPAP Oxygen Flow Rate Fraction of Inspired Oxygen 05/05/23 23:44 05/06/23 00:00 05/06/23 00:00 Temperature 37.0 C Pulse Rate 101 H 99 Respiratory Rate 35 H Blood Pressure 140/69 Pulse Oximetry 96 96 Oxygen Delivery BiPAP Oxygen Flow Rate Fraction of Inspired Oxygen 32 05/06/23 02:00 05/06/23 04:07 05/05/23 21:00 Temperature Pulse Rate 96 93 95 Respiratory Rate 24 H 37 H Blood Pressure Pulse Oximetry 100 Oxygen Delivery BiPAP Oxygen Flow Rate Fraction of Inspired Oxygen 05/06/23 04:13 05/05/23 21:00 05/05/23 21:12 Temperature Pulse Rate 92 98 101 H Respiratory Rate 33 H 37 H 33 H Blood Pressure Pulse Oximetry 93 Oxygen Delivery BiPAP Oxygen Flow Rate Fraction of Inspired Oxygen 05/06/23 00:40 05/06/23 04:28 05/06/23 04:00 Temperature 36.8 C Pulse Rate 97 99 90 Respiratory Rate 24 H 30 H Blood Pressure 140/64 Pulse Oximetry 100 96 Oxygen Delivery BiPAP Oxygen Flow Rate Fraction of Inspired Oxygen 05/06/23 04:00 05/06/23 06:00 05/05/23 21:00 Temperature Pulse Rate 84 Respiratory Rate Blood Pressure Pulse Oximetry 92 100 Oxygen Delivery High Flow Therapy with Na BiPAP Oxygen Flow Rate 40 Fraction of Inspired Oxygen 32 32 05/06/23 06:46 05/06/23 07:25 05/06/23 07:25 Temperature Pulse Rate 88 88 Respiratory Rate 20 20 Blood Pressure Pulse Oximetry 96 98 Oxygen Delivery High Flow Therapy with Na High Flow Therapy with Na Oxygen Flow Rate 40 40 Fraction of Inspired Oxygen 32 32 05/06/23 07:35 05/06/23 08:00 05/06/23 10:42 Temperature 36.7 C Pulse Rate 93 86 Respiratory Rate 22 H 24 H Blood Pressure 122/63 Pulse Oximetry 90 Oxygen Delivery High Flow Therapy with Na Oxygen Flow Rate 40 Fraction of Inspired Oxygen 05/06/23 10:55 Temperature Pulse Rate Respiratory Rate Blood Pressure Pulse Oximetry Oxygen Delivery High Flow Therapy with Na Oxygen Flow Rate 30 Fraction of Inspired Oxygen
[2023-05-06] MEDS: FENOFIBRATE,MICRONIZED 48 MG TABLET PO (13:41)
--- NOTE | 2023-05-06 13:55 | PM.IMPN ---
Progress Note: A&P Assessment and Plan (1) Acute hypercapnic respiratory failure: Code(s): J96.02 - Acute respiratory failure with hypercapnia Status: Acute (2) CO2 narcosis: Code(s): R06.89 - Other abnormalities of breathing Status: Acute (3) Pneumothorax on left: Code(s): J93.9 - Pneumothorax, unspecified Status: Acute (4) Chronic hypoxemic respiratory failure: Code(s): J96.11 - Chronic respiratory failure with hypoxia Status: Acute Plan 77M w/ PMH CAD s/p CABG on 12/10/22 w/ evidence of OM graft occlusion in 2016 denies further treatment, bioprosthetic aortic valve replacement, HLD, HTN, prediabetes, interstitial lung disease w/ IUP pattern w/ chronic hypoxic respiratory failure on 2-3L at home continuous, presents with altered mental status. He lives with . He has been declining for approx 6 months, becoming more weak, losing weight, and having to increase his o2 to 5L on exertion. On the days leading up to admission, the noticed the patient becoming very somnolent. In the ED he was found to have a partial pressure of CO2 of 116.5. BIPAP placed with settings of 12/6 and rate of 4, patient's AMS resolved and repeat VBG revealed PCO2 of 92.9. Admitted on 05/05/23.Chest x-ray with new small left pneumothorax. Severe chronic interstitial lung disease cannot exclude acute superimposed pneumonia. Acute hypoxic hypercapnic on chronic hypoxic respiratory failure. CT chest revealed a small loculated left pneumothorax at the lateral mid and lower lung zone and interval progression of his ILD. His AMS has resolved with BIPAP, will keep settings at 12/6 and rate of 4. With pneumothorax will try limit BiPAP use. May use Airvo/Vapotherm. Treating as COPD exacerbation with solumedrol and schedules nebs. Pulmonary consultation. Added doxycycline. Chest x-ray reviewed. May need noninvasive ventilator at discharge for hypercapnic respiratory failure. ABG reviewed Interstitial lung disease interval progression. Patient on pirfenidone Cachexia likely due to underlying pulmonary issue. Dietitian consultation Small loculated left pneumothorax monitor chest x-ray general surgery consulted from the ER SCDs. Full Code. Guarded. Needs to discuss goals of care. Subjective Date/time seen: 05/06/23 13:55 Interval history: 77 year old male with PMH CAD s/p CABG on 12/10/22 w/ evidence of OM graft occlusion in 2016 denies further treatment, bioprosthetic aortic valve replacement, HLD, HTN, prediabetes, interstitial lung disease w/ IUP pattern w/ chronic hypoxic respiratory failure on 2-3L at home continuous, presents with altered mental status. He lives with . He has been declining for approx 6 months, becoming more weak, losing weight, and having to increase his o2 to 5L on exertion. On the day of admission, the noticed the patient becoming very somnolent. In the ED he was found to have a partial pressure of CO2 of 116.5. BIPAP placed with settings of 12/6 and rate of 4, patient's AMS resolved and repeat VBG revealed PCO2 of 92.9. CT head with volar and for small on right frontoparietal region no acute intracranial process. Patient more alert, ate his meal this a.m. 05/06/2023: No overnight events. Is much more awake and alert. On Vapotherm this a.m.. Use BiPAP last night. Review of Systems Review of Systems: All systems reviewed & are unremarkable except as noted in HPI and below (HPI) Exam Narrative: GENERAL: Well-appearing, well-nourished, and in no acute distress. HEAD: Normocephalic, atraumatic. EYES: PERRLA and EOMI. ENT: Nares clear.? Mucous membranes moist. NECK: Supple. CHEST: Coarse breath sound bilaterally no respiratory distress.? On vapotherm HEART: Regular rate and rhythm.? Normal peripheral pulses. ABDOMEN: Soft, nontender, nondistended. EXTREMITIES: Normal range of motion.? No edema. SKIN: Warm, dry, no rash. NEURO: No focal deficits.? Alert and oriented x3. PSYCH: No
--- NOTE | 2023-05-06 14:58 | PHAR ---
HOME: PIRFENIDONE 200 MG TABLETS; 4 PACKETS OF 10. VERIFIED BY PHARMACY
[2023-05-07] VITALS (24 sets, daily range): BP systolic 121–149; BP diastolic 61–71; PULSE 93–123; RESP 19–25; TEMP 36.6–37.2; O2SAT 97–100
[2023-05-07] MEDS: IPRATROPIUM BR 0.02% INH SOLN 0.5 MG/2.5 ML VIAL INHALATION ×4 (02:36→20:34)
[2023-05-07] MEDS: ALBUTEROL SULFATE NEB 2.5 MG/3 ML INH INHALATION ×4 (02:36→20:34)
[2023-05-07 05:05] LABS: Basophils Percent Auto 0.1 % (0.2-1.2); Hematocrit 31.6 % (42.0-52.0); Hemoglobin 9.8 g/dL (14.0-18.0); Immature Granulocyte Percent A 1.1 % (0-0.5); Lymphocytes Absolute Auto 0.43 K/mm3 (0.9-3.2); Lymphocytes Percent Auto 2.5 % (18.3-44.2); Mean Corpuscular Hemoglobin 31.3 pg (26-34); Mean Platelet Volume 8.8 fl (7.4-10.4); Monocytes Absolute Auto 0.4 K/mm3 (0.1-0.6); Monocytes Percent Auto 2.5 % (2.6-8.5); Neutrophils Absolute Auto 16.4 K/mm3 (1.3-6.7); Neutrophils Percent Auto 93.8 % (45.5-73.1); Platelet Count Result 291 k/mm3 (150-375); Red Blood Count 3.13 M/mm3 (4.6-6.20); Red Cell Distribution Width 12.4 % (11.5-14.5); White Blood Count 17.5 K/mm3 (4.5-10.0)
[2023-05-07 05:27] LABS: Alanine Aminotransferase 21 U/L (6-50); Albumin Level 3.7 g/dL (3.5-5.1); Alkaline Phosphatase 49 U/L (38-126); Aspartate Amino Transferase 38 U/L (17-59); Bilirubin,Total 0.4 mg/dL (0.2-1.3); Blood Urea Nitrogen 31 mg/dL (9-20); Calcium 9.4 mg/dL (8.4-10.2); Carbon Dioxide > 40 mmol/L (22-30); Chloride 92 mmol/L (98-107); Estimated CRCL calculation 49 ml/min; Estimated Glomerular Filt Rate > 60; Glucose 233 mg/dL (65-110); Magnesium 1.8 mg/dL (1.6-2.3); Potassium 4.2 mmol/L (3.4-5.0); Sodium 137 mmol/L (137-145)
[2023-05-07] MEDS: MEGESTROL ACETATE (*CHEMO) 40 MG TABLET PO ×3 (05:47→17:47)
[2023-05-07] MEDS: methylPREDNISolone SOD SUCC 125 MG VIAL 60 MG IV PUSH (05:47)
[2023-05-07 05:51] LABS: Alveolar/Arterial O2 Gradient 78.6 mmHg; Base Excess ABG 13.4 mEq/l (+/-2.0); Fractional Inspired Oxygen 32 %; HCO3 ABG 40.1 mEq/l (22.0-26.0); Oxygen Content ABG 14.2 %vol (16.0-22.0); Oxygen Saturation ABG 94.8 % (95.0-100.0); Oxyhemoglobin 93.8 % THb (90.0-100.0); PO2 ABG 75.2 mmHg (80.0-100.0); PO2 FiO2 Ratio Arterial Blood 2.35 %; Total Hemoglobin 10.7 g/dL (12.0-18.0); pH ABG 7.418 (7.350-7.450)
[2023-05-07 05:53] LABS: Modified Allen's Test Pass; PCO2 ABG 63.6 mmHg (35.0-45.0); Site Drawn RIGHT RADIAL
[2023-05-07 05:54] LABS: Device HIGH FLOW THERAPY
[2023-05-07 08:45] LABS: NT Pro B Type Natriuretic Pept 765 pg/mL (19.9-100)
[2023-05-07 08:54] LABS: Free T4 Free Thyroxine 1.25 ng/mL (0.78-2.19)
[2023-05-07 09:10] LABS: Thyroid Stimulating Hormone 0.215 uIU/mL (0.465-4.680)
[2023-05-07] MEDS: ASPIRIN 81 MG ENTERIC TABLET PO (09:47)
[2023-05-07] MEDS: OPTI-GEN TAB 1 TABLET PO (09:47)
[2023-05-07] MEDS: FENOFIBRATE,MICRONIZED 48 MG TABLET PO (09:47)
[2023-05-07] MEDS: DOXYCYCLINE 100 MG/NS 100 ML 100 MG/100 ML BAG IVPB (09:48)
--- NOTE | 2023-05-07 10:49 | P.CONPL_ITS ---
Assessment and Plan Assessment and plan (1) ILD (interstitial lung disease): Code(s): J84.9 - Interstitial pulmonary disease, unspecified Status: Acute Assessment and Plan: 77-year-old with a history of interstitial lung disease with CT scan consistent with UIP followed at [facility] interstitial lung disease and given clinical diagnosis of IPF on pirfenidone since about 08/2018. ILD first seen on a CXR in our system from 04/15/2011 and on the first CT chest scan in our system on 02/16/2012 with extensive interlobular septal thickening with improved ground- glass opacity. Last office visit I have from [facility] ILD clinic on 07/21/2022 stated the patient had more shortness of breath, weight loss, but was still able to mow his grass and do gardening. His saturations on 2 L nasal cannula were 96%. FVC was 1.33 L, 45% predicted. FEV1 was 1.33 L, 59% predicted and compared to 12/16/2021 the FVC had decreased from 1.86 L to 1.33 L. The FEV1 had decreased from 1.66 L to 1.33 L. On 12/16/2021 the total lung capacity was 3.02 L, 52% predicted. The DLCO adjusted was 35%. An ABG was 7.41/46/71. Spirometry on 12/2018 with an FVC of 2.18 L, 64% predicted. TLC 3.95 L, 77% predicted, DLCO 93% predicted. CT scan showed progressive fibrosis in the upper lobe and was recommended to switch the patient from pirfenidone to Ofev but the patient wished to remain on pirfenidone. Follow-up in 6 months. The family tells me he had a follow-up appointment in January of 2023 but I do not have that documentation. At that time he was told that he is not a lung transplant candidate. His breathing tests were mildly worse but not as bad as anticipated. Pulmonary rehabilitation was recommended. There was no discussion of switching to Ofev. Recently he has had worsening respiratory symptoms, worsening oxygenation associated with green phlegm. He presented to the hospital on 05/05/2022 with altered mental status and acute on chronic hypercarbic and hypoxemic respiratory failure. He was treated with BiPAP with improvement of his PaCO2 and improved mental status. He was also found to have a left pneumothorax. 05/07/23: Patient attempted to wear the noninvasive ventilator with the AVAPS mode rate of 16, tidal volume 350, EPAP 4, minimal inspiratory pressure 8, maxim al inspiratory pressure 20 and 32% FiO2 overnight. The patient and the tells me he did not tolerate the fullface mask and although he said he slept the said he was up most of the night struggling with the mask. Currently the patient is on Vapotherm with 40 L flow and 32% FiO2 with saturations 96%. Overall the patient tells me that he is better, he continues to cough with green phlegm, he has fatigue and shortness of breath when he talks. Overall he says he is 30% better. Plan: I spoke with the patient, his and son and at this time they are interested in pursuing aggressive therapy for his progressive interstitial lung disease. Patient should be transferred to [facility] so that he can be evaluated by the interstitial Lung Disease team for his progressive worsening i nterstitial lung disease for optimal inpatient hospitalization, utility of noninvasive ventilation at home and any salvage therapies that may be available. He should also be evaluated by thoracic surgery for his new onset pneumothorax. I have discussed this with the hospitalist, Dr. Grady, who will initiate this transfer. While he is at [facility] I will continue with Solu-Medrol but decrease the dose to 20 mg IV q.6 for possible IPF exacerbation. I will treat possible bacterial infection aggressively and change his doxycycline to vancomycin and meropenem. I will send a repeat COVID, influenza and RSV RT PCR study a
[2023-05-07 10:57] LABS: Influenza A QL RT-PCR Negative (Negative); Influenza B QL RT-PCR Negative (Negative); RSV RNA, RT-PCR Negative (Negative); SARS-CoV-2 RNA PCR Negative (Negative)
[2023-05-07] MEDS: WATER FOR IRRIGATION, STERILE 1,000 ML BOTTLE 1000 ML (11:32)
[2023-05-07] MEDS: MEROPENEM 1 GM/NS 100 ML 1 GM/100 ML BAG IVPB ×2 (11:32→20:59)
[2023-05-07] MEDS: methylPREDNISolone SOD SUCC 40 MG VIAL 20 MG IV PUSH ×2 (11:33→17:47)
[2023-05-07] MEDS: VANCOMYCIN 1,250 MG/NS 250 ML 1,250 MG/250 ML BAG 166.67 MG IVPB (13:05)
--- NOTE | 2023-05-07 13:41 | PM.IMPN ---
Progress Note: A&P Assessment and Plan (1) Acute hypercapnic respiratory failure: Code(s): J96.02 - Acute respiratory failure with hypercapnia Status: Acute (2) CO2 narcosis: Code(s): R06.89 - Other abnormalities of breathing Status: Acute (3) Pneumothorax on left: Code(s): J93.9 - Pneumothorax, unspecified Status: Acute (4) Chronic hypoxemic respiratory failure: Code(s): J96.11 - Chronic respiratory failure with hypoxia Status: Acute Plan 77M w/ PMH CAD s/p CABG on 12/10/22 w/ evidence of OM graft occlusion in 2016 denies further treatment, bioprosthetic aortic valve replacement, HLD, HTN, prediabetes, interstitial lung disease w/ IUP pattern w/ chronic hypoxic respiratory failure on 2-3L at home continuous, presents with altered mental status. He lives with . He has been declining for approx 6 months, becoming more weak, losing weight, and having to increase his o2 to 5L on exertion. On the days leading up to admission, the noticed the patient becoming very somnolent. In the ED he was found to have a partial pressure of CO2 of 116.5. BIPAP placed with settings of 12/6 and rate of 4, patient's AMS resolved and repeat VBG revealed PCO2 of 92.9. Admitted on 05/05/23.Chest x-ray with new small left pneumothorax. Severe chronic interstitial lung disease cannot exclude acute superimposed pneumonia. Acute hypoxic hypercapnic on chronic hypoxic respiratory failure. CT chest revealed a small loculated left pneumothorax at the lateral mid and lower lung zone and interval progression of his ILD. His AMS has resolved with BIPAP, will keep settings at 12/6 and rate of 4. With pneumothorax will try limit BiPAP use. May use Airvo/Vapotherm. Treating as COPD exacerbation with solumedrol and schedules nebs. Pulmonary consultation. Added doxycycline. Chest x-ray reviewed. May need noninvasive ventilator at discharge for hypercapnic respiratory failure. ABG reviewed. Improved hypercapnia. Discussed with Pulmonary and prefers transferred to higher facility. Called out to [place] pending acceptance antibiotics switched to vancomycin and meropenem Interstitial lung disease interval progression. Patient on pirfenidone doses increased to 800 mg 3 times a day Cachexia likely due to underlying pulmonary issue. Dietitian consultation Small loculated left pneumothorax monitor chest x-ray general surgery consulted from the ER SCDs. Full Code. Guarded. Needs to discuss goals of care. Subjective Date/time seen: 05/07/23 13:41 Interval history: 77 year old male with PMH CAD s/p CABG on 12/10/22 w/ evidence of OM graft occlusion in 2016 denies further treatment, bioprosthetic aortic valve replacement, HLD, HTN, prediabetes, interstitial lung disease w/ IUP pattern w/ chronic hypoxic respiratory failure on 2-3L at home continuous, presents with altered mental status. He lives with . He has been declining for approx 6 months, becoming more weak, losing weight, and having to increase his o2 to 5L on exertion. On the day of admission, the noticed the patient becoming very somnolent. In the ED he was found to have a partial pressure of CO2 of 116.5. BIPAP placed with settings of 12/6 and rate of 4, patient's AMS resolved and repeat VBG revealed PCO2 of 92.9. CT head with volar and for small on right frontoparietal region no acute intracranial process. Patient more alert, ate his meal this a.m. 05/06/2023: No overnight events. Is much more awake and alert. On Vapotherm this a.m.. Use BiPAP last night. 05/07/2023: No overnight events however did not sleep overnight. Alert and awake and conversant. Son at bedside. Used AVAPS last night. On high-flow nasal cannula. Discussed with Pulmonary this a.m.. Review of Systems Review of Systems: All systems reviewed & are unremarkable except as noted in HPI and below (HPI) Exam Narrative: GENERAL: Well-appearing, well-nourished, and in no acute distress.
[2023-05-07 17:10] LABS: MRSA (PCR) NOT DETECTED (NOT DETECTE)
[2023-05-08] VITALS (24 sets, daily range): BP systolic 124–158; BP diastolic 61–79; PULSE 86–113; RESP 16–20; TEMP 36.6–37.1; O2SAT 93–100
[2023-05-08] MEDS: methylPREDNISolone SOD SUCC 40 MG VIAL 20 MG IV PUSH ×5 (00:10→23:54)
[2023-05-08] MEDS: ALBUTEROL SULFATE NEB 2.5 MG/3 ML INH INHALATION ×5 (02:03→20:00)
[2023-05-08] MEDS: IPRATROPIUM BR 0.02% INH SOLN 0.5 MG/2.5 ML VIAL INHALATION ×5 (02:03→20:00)
[2023-05-08 05:13] LABS: Basophils Percent Auto 0.1 % (0.2-1.2); Hematocrit 30.2 % (42.0-52.0); Hemoglobin 9.3 g/dL (14.0-18.0); Immature Granulocyte Absolute 0.18 K/mm3 (0.00-0.031); Immature Granulocyte Percent A 1.2 % (0-0.5); Lymphocytes Absolute Auto 0.41 K/mm3 (0.9-3.2); Lymphocytes Percent Auto 2.8 % (18.3-44.2); Mean Corpuscular HGB Conc 30.8 g/dl (32-36); Mean Corpuscular Hemoglobin 31.3 pg (26-34); Mean Corpuscular Volume 101.7 fl (80-100); Mean Platelet Volume 9.1 fl (7.4-10.4); Monocytes Absolute Auto 0.6 K/mm3 (0.1-0.6); Monocytes Percent Auto 4.2 % (2.6-8.5); Neutrophils Absolute Auto 13.2 K/mm3 (1.3-6.7); Neutrophils Percent Auto 91.7 % (45.5-73.1); Platelet Count Result 246 k/mm3 (150-375); Red Blood Count 2.97 M/mm3 (4.6-6.20); Red Cell Distribution Width 12.5 % (11.5-14.5); White Blood Count 14.4 K/mm3 (4.5-10.0)
[2023-05-08 05:35] LABS: Alveolar/Arterial O2 Gradient < 0.0 mmHg; Fractional Inspired Oxygen 32 %; HCO3 ABG 44.3 mEq/l (22.0-26.0); Oxygen Content ABG 14.5 %vol (16.0-22.0); Oxyhemoglobin 97.6 % THb (90.0-100.0); PO2 ABG 167.4 mmHg (80.0-100.0); PO2 FiO2 Ratio Arterial Blood 5.23 %; Total Hemoglobin 10.3 g/dL (12.0-18.0); pH ABG 7.363 (7.350-7.450)
[2023-05-08 05:36] LABS: PCO2 ABG 79.7 mmHg (35.0-45.0)
[2023-05-08 05:37] LABS: Modified Allen's Test Pass; Site Drawn RIGHT RADIAL
[2023-05-08 05:38] LABS: Device HIGH FLOW NASAL CANN
[2023-05-08 05:38] LABS: Alanine Aminotransferase 27 U/L (6-50); Albumin Level 3.4 g/dL (3.5-5.1); Alkaline Phosphatase 42 U/L (38-126); Aspartate Amino Transferase 33 U/L (17-59); Bilirubin,Total 0.4 mg/dL (0.2-1.3); Blood Urea Nitrogen 26 mg/dL (9-20); Calcium 9.1 mg/dL (8.4-10.2); Carbon Dioxide > 40 mmol/L (22-30); Chloride 94 mmol/L (98-107); Estimated CRCL calculation 46 ml/min; Estimated Glomerular Filt Rate > 60; Glucose 175 mg/dL (65-110); Potassium 4.6 mmol/L (3.4-5.0); Sodium 138 mmol/L (137-145)
[2023-05-08] MEDS: MEGESTROL ACETATE (*CHEMO) 40 MG TABLET PO ×3 (06:16→16:30)
--- NOTE | 2023-05-08 08:00 | ECHO_ITS ---
Patient Info Name: Rasta Capps Age: 77 years : 1945 Gender: Male Ht: 68 in Wt: 100 lbs BSA: 1.45 m2 HR: 100 bpm BP: 137 / 67 mmHg Heart Rhythm: Sinus Rhythm Technical Quality: Good Exam Date: 05/08/2023 9:10 AM Exam Location: Echo Lab Patient Status: Inpatient Admit Date: 05/04/2023 Staff Ordering Physician: Elder Diaz MD Weights And Measures Sealer: Gustavo Herrera RDCS Attending Provider: Marisol Frazier MD Exam Type: CA echo doppler w bubble study Study Info Complete two-dimensional, color flow and Doppler transthoracic echocardiogram is performed with agitated saline. Contrast/Agitated Saline Contrast/Ag. Saline: Agitated Saline Amount: 20.00 ml Summary 1. Left ventricular chamber dimension is normal. 2. Left ventricular systolic function is normal, estimated at 60-65%. 3. There is mild concentric increased left ventricular wall thickness. 4. The left ventricular diastolic function is grade I diastolic dysfunction. 5. E/e' 15 is elevated. 6. Left atrial chamber dimension is mildly enlarged. 7. Right atrial chamber dimension is mildly enlarged. 8. Agitated saline injection with and without valsalva maneuver opacified right side cardiac chambers with shunt of significant bubbles to left side cardiac chambers. This is suggestive of patent foramen ovale. 9. The bioprosthetic aortic valve is not well visualized. 10. The mitral valve has mildly calcified annulus. 11. There is mild mitral valve regurgitation. 12. There is moderate to severe tricuspid valve regurgitation. 13. Moderate pulmonary hypertension, estimated pulmonary arterial systolic pressure is 51 mmHg. Left Ventricle E/e' 15 is elevated. Left ventricular chamber dimension is normal. Left ventricular systolic function is normal, estimated at 60-65%. There is mild concentric increased left ventricular wall thickness. The left ventricular diastolic function is grade I diastolic dysfunction. Right Ventricle Right ventricular systolic function is normal and with normal TAPSE 2.5 cm. Right ventricular chamber dimension is normal. Left Atria Left atrial chamber dimension is mildly enlarged. Right Atria Right atrial chamber dimension is mildly enlarged. Atrial Septum Agitated saline injection with and without valsalva maneuver opacified right side cardiac chambers with shunt of significant bubbles to left side cardiac chambers. This is suggestive of patent foramen ovale. Interatrial septum not well visualized by 2D and agitated saline imaging. Aortic Valve There is no bioprosthetic aortic valve stenosis by valve area or gradients. The bioprosthetic aortic valve is not well visualized. There is no regurgitation of the bioprosthetic aortic valve. Pulmonic Valve There is no pulmonic regurgitation. Mitral Valve The mitral valve has mildly calcified annulus. There is no mitral valve stenosis. There is mild mitral valve regurgitation. Tricuspid Valve There is moderate to severe tricuspid valve regurgitation. Moderate pulmonary hypertension, estimated pulmonary arterial systolic pressure is 51 mmHg. Pericardium/Pleural There is no pericardial effusion. Inferior Vena Cava Normal inferior vena cava with >50% collapse upon inspiration consistent with normal right atrial pressure, 5 mmHg. Aorta The aortic root size at the sinus of Valsalva is normal. Left Ventricular Outflow Tract Name Value Normal
[2023-05-08] MEDS: OPTI-GEN TAB 1 TABLET PO (08:50)
[2023-05-08] MEDS: FENOFIBRATE,MICRONIZED 48 MG TABLET PO (08:50)
[2023-05-08] MEDS: ASPIRIN 81 MG ENTERIC TABLET PO (08:51)
[2023-05-08] MEDS: MEROPENEM 1 GM/NS 100 ML 1 GM/100 ML BAG IVPB ×2 (08:51→20:47)
--- NOTE | 2023-05-08 09:25 | PM.PNPUL ---
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 ILD first seen on a CXR in our system from 04/15/2011 and on the first CT chest scan in our system on 02/16/2012 with extensive interlobular septal thickening with improved ground-glass opacity. Last office visit I have from [facility] ILD clinic on 07/21/2022 stated the patient had more shortness of breath, weight loss, but was still able to mow his grass and do gardening. His saturations on 2 L nasal cannula were 96%. FVC was 1.33 L, 45% predicted. FEV1 was 1.33 L, 59% predicted and compared to 12/16/2021 the FVC had decreased from 1.86 L to 1.33 L. The FEV1 had decreased from 1.66 L to 1.33 L. On 12/16/2021 the total lung capacity was 3.02 L, 52% predicted. The DLCO adjusted was 35%. An ABG was 7.41/46/71. Spirometry on 12/2018 with an FVC of 2.18 L, 64% predicted. TLC 3.95 L, 77% predicted, DLCO 93% predicted. CT scan showed progressive fibrosis in the upper lobe and was recommended to switch the patient from pirfenidone to Ofev but the patient wished to remain on pirfenidone. Follow-up in 6 months. The family tells me he had a follow-up appointment in January of 2023 but I do not have that documentation. At that time he was told that he is not a lung transplant candidate. His breathing tests were mildly worse but not as bad as anticipated. Pulmonary rehabilitation was recommended. There was no discussion of switching to Ofev. Recently he has had worsening respiratory symptoms, worsening oxygenation associated with green phlegm. He presented to the hospital on 05/05/2022 with altered mental status and acute on chronic hypercarbic and hypoxemic respiratory failure. He was treated with BiPAP with improvement of his PaCO2 and improved mental status. He was also found to have a left pneumothorax. 05/07/23: Patient attempted to wear the noninvasive ventilator with the AVAPS mode rate of 16, tidal volume 350, EPAP 4, minimal inspiratory pressure 8, maximal inspiratory pressure 20 and 32% FiO2 overnight. The patient and the tells me he did not tolerate the fullface mask and although he said he slept the said he was up most of the night struggling with the mask. Currently the patient is on Vapotherm with 40 L flow and 32% FiO2 with saturations 96%. Overall the patient tells me that he is better, he continues to cough with green phlegm, he has fatigue and shortness of breath when he talks. Overall he says he is 30% better. Plan: I spoke with the patient, his and son and at this time they are interested in pursuing aggressive therapy for his progressive interstitial lung disease. Patient should be transferred to [facility] so that he can be evaluated by the interstitial Lung Disease team for his progressive worsening interstitial lung disease for optimal inpatient hospitalization, utility of noninvasive ventilation at home and any salvage therapies that may be available. He should also be evaluated by thoracic surgery for his new onset pneumothorax. I have discussed this with the hospitalist, Dr. Grady, who will initiate this transfer. While he is at [facility] I will continue with Solu-Medrol but decrease the dose to 20 mg IV q.6 for possible IPF exacerbation. I will treat possible bacterial infection aggressively and change his doxycycline to vancomycin and meropenem. I will send a repeat COVID, influenza and RSV RT PCR study as well as an extended respiratory pathogen panel to [facility] (will take 7-10 days to return). He does not appear to be fluid overloaded. His BNP is 765. I will obtain an echocardiogram with a bubble study on
[2023-05-08] MEDS: VANCOMYCIN 1,000 MG/NS 250 ML 1,000 MG/250 ML BAG 250 MG IVPB (11:32)
--- NOTE | 2023-05-08 12:39 | PM.IMPN ---
Progress Note: A&P Assessment and Plan (1) Acute hypercapnic respiratory failure: Code(s): J96.02 - Acute respiratory failure with hypercapnia Status: Acute (2) CO2 narcosis: Code(s): R06.89 - Other abnormalities of breathing Status: Acute (3) Pneumothorax on left: Code(s): J93.9 - Pneumothorax, unspecified Status: Acute (4) Chronic hypoxemic respiratory failure: Code(s): J96.11 - Chronic respiratory failure with hypoxia Status: Acute Plan 77M w/ PMH CAD s/p CABG on 12/10/22 w/ evidence of OM graft occlusion in 2016 denies further treatment, bioprosthetic aortic valve replacement, HLD, HTN, prediabetes, interstitial lung disease w/ IUP pattern w/ chronic hypoxic respiratory failure on 2-3L at home continuous, presents with altered mental status. He lives with . He has been declining for approx 6 months, becoming more weak, losing weight, and having to increase his o2 to 5L on exertion. On the days leading up to admission, the noticed the patient becoming very somnolent. In the ED he was found to have a partial pressure of CO2 of 116.5. BIPAP placed with settings of 12/6 and rate of 4, patient's AMS resolved and repeat VBG revealed PCO2 of 92.9. Admitted on 05/05/23.Chest x-ray with new small left pneumothorax. Severe chronic interstitial lung disease cannot exclude acute superimposed pneumonia. Acute hypoxic hypercapnic on chronic hypoxic respiratory failure. CT chest revealed a small loculated left pneumothorax at the lateral mid and lower lung zone and interval progression of his ILD. His AMS has resolved with BIPAP, will keep settings at 12/6 and rate of 4. With pneumothorax will try limit BiPAP use. Ultimately with hypercapnia will need noninvasive ventilation at discharge however due to presence of pneumothorax this might complicated. Currently may use Airvo/Vapotherm. Treating as COPD exacerbation with solumedrol and schedules nebs. Pulmonary consultation. Added doxycycline. Chest x-ray reviewed. May need noninvasive ventilator at discharge for hypercapnic respiratory failure. ABG reviewed. Improved hypercapnia. Discussed with Pulmonary and prefers transferred to higher facility. Called out to [facility] pending acceptance antibiotics switched to vancomycin and meropenem. He has been discussed with [facility] and accepted at ICU. Awaiting bed placement Interstitial lung disease interval progression. Patient on pirfenidone doses increased to 800 mg 3 times a day Cachexia likely due to underlying pulmonary issue. Dietitian consultation Small loculated left pneumothorax monitor chest x-ray general surgery consulted from the ER SCDs. Full Code. Guarded. Needs to discuss goals of care. Subjective Date/time seen: 05/08/23 12:39 Interval history: 77 year old male with PMH CAD s/p CABG on 12/10/22 w/ evidence of OM graft occlusion in 2016 denies further treatment, bioprosthetic aortic valve replacement, HLD, HTN, prediabetes, interstitial lung disease w/ IUP pattern w/ chronic hypoxic respiratory failure on 2-3L at home continuous, presents with altered mental status. He lives with . He has been declining for approx 6 months, becoming more weak, losing weight, and having to increase his o2 to 5L on exertion. On the day of admission, the noticed the patient becoming very somnolent. In the ED he was found to have a partial pressure of CO2 of 116.5. BIPAP placed with settings of 12/6 and rate of 4, patient's AMS resolved and repeat VBG revealed PCO2 of 92.9. CT head with volar and for small on right frontoparietal region no acute intracranial process. Patient more alert, ate his meal this a.m. 05/06/2023: No overnight events. Is much more awake and alert. On Vapotherm this a.m.. Use BiPAP last night. 05/07/2023: No overnight events however did not sleep overnight. Alert and awake and conversant. Son at bedside. Used AVAPS last night. On high-flow nasal cannula. D
[2023-05-08] MEDS: MELATONIN 5 MG TABLET PO (20:48)
[2023-05-09] VITALS (18 sets, daily range): BP systolic 138–156; BP diastolic 72–86; PULSE 91–120; RESP 18–24; TEMP 36.4–37.2; O2SAT 90–100
[2023-05-09 04:10] LABS: Hematocrit 29.1 % (42.0-52.0); Hemoglobin 8.9 g/dL (14.0-18.0); Mean Corpuscular HGB Conc 30.6 g/dl (32-36); Mean Corpuscular Hemoglobin 31.6 pg (26-34); Mean Corpuscular Volume 103.2 fl (80-100); Mean Platelet Volume 8.8 fl (7.4-10.4); Platelet Count Result 222 k/mm3 (150-375); Red Blood Count 2.82 M/mm3 (4.6-6.20); Red Cell Distribution Width 12.4 % (11.5-14.5); White Blood Count 12.5 K/mm3 (4.5-10.0)
[2023-05-09 04:46] LABS: Blood Urea Nitrogen 23 mg/dL (9-20); Calcium 8.8 mg/dL (8.4-10.2); Carbon Dioxide > 40 mmol/L (22-30); Chloride 91 mmol/L (98-107); Estimated CRCL calculation 43 ml/min; Estimated Glomerular Filt Rate > 60; Glucose 180 mg/dL (65-110); Magnesium 1.8 mg/dL (1.6-2.3); Potassium 4.7 mmol/L (3.4-5.0); Sodium 134 mmol/L (137-145)
[2023-05-09] MEDS: methylPREDNISolone SOD SUCC 40 MG VIAL 20 MG IV PUSH (05:19)
[2023-05-09] MEDS: MEGESTROL ACETATE (*CHEMO) 40 MG TABLET PO ×3 (05:53→16:45)
[2023-05-09] MEDS: ALBUTEROL SULFATE NEB 2.5 MG/3 ML INH INHALATION (07:04)
[2023-05-09] MEDS: IPRATROPIUM BR 0.02% INH SOLN 0.5 MG/2.5 ML VIAL INHALATION (07:04)
--- NOTE | 2023-05-09 08:26 | PM.PNPUL ---
Progress Note: A&P Assessment and Plan (1) ILD (interstitial lung disease): Code(s): J84.9 - Interstitial pulmonary disease, unspecified Status: Acute Assessment and Plan: 77-year-old with a history of interstitial lung disease with CT scan consistent with UIP followed at 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 ILD first seen on a CXR in our system from 04/15/2011 and on the first CT chest scan in our system on 02/16/2012 with extensive interlobular septal thickening with improved ground-glass opacity. Last office visit I have from [facility] ILD clinic on 07/21/2022 stated the patient had more shortness of breath, weight loss, but was still able to mow his grass and do gardening. His saturations on 2 L nasal cannula were 96%. FVC was 1.33 L, 45% predicted. FEV1 was 1.33 L, 59% predicted and compared to 12/16/2021 the FVC had decreased from 1.86 L to 1.33 L. The FEV1 had decreased from 1.66 L to 1.33 L. On 12/16/2021 the total lung capacity was 3.02 L, 52% predicted. The DLCO adjusted was 35%. An ABG was 7.41/46/71. Spirometry on 12/2018 with an FVC of 2.18 L, 64% predicted. TLC 3.95 L, 77% predicted, DLCO 93% predicted. CT scan showed progressive fibrosis in the upper lobe and was recommended to switch the patient from pirfenidone to Ofev but the patient wished to remain on pirfenidone. Follow-up in 6 months. The family tells me he had a follow-up appointment in January of 2023 but I do not have that documentation. At that time he was told that he is not a lung transplant candidate. His breathing tests were mildly worse but not as bad as anticipated. Pulmonary rehabilitation was recommended. There was no discussion of switching to Ofev. Recently he has had worsening respiratory symptoms, worsening oxygenation associated with green phlegm. He presented to the hospital on 05/05/2022 with altered mental status and acute on chronic hypercarbic and hypoxemic respiratory failure. He was treated with BiPAP with improvement of his PaCO2 and improved mental status. He was also found to have a left pneumothorax. 05/07/23: Patient attempted to wear the noninvasive ventilator with the AVAPS mode rate of 16, tidal volume 350, EPAP 4, minimal inspiratory pressure 8, maximal inspiratory pressure 20 and 32% FiO2 overnight. The patient and the tells me he did not tolerate the fullface mask and although he said he slept the said he was up most of the night struggling with the mask. Currently the patient is on Vapotherm with 40 L flow and 32% FiO2 with saturations 96%. Overall the patient tells me that he is better, he continues to cough with green phlegm, he has fatigue and shortness of breath when he talks. Overall he says he is 30% better. Plan: I spoke with the patient, his and son and at this time they are interested in pursuing aggressive therapy for his progressive interstitial lung disease. Patient should be transferred to [facility] so that he can be evaluated by the interstitial Lung Disease team for his progressive worsening interstitial lung disease for optimal inpatient hospitalization, utility of noninvasive ventilation at home and any salvage therapies that may be available. He should also be evaluated by thoracic surgery for his new onset pneumothorax. I have discussed this with the hospitalist, Dr. Grady, who will initiate this transfer. While he is at [facility] I will continue with Solu-Medrol but decrease the dose to 20 mg IV q.6 for possible IPF exacerbation. I will treat possible bacterial infection aggressively and change his doxycycline to vancomycin and meropenem. I will send a repeat COVID, influenza and RSV RT PCR study as well as an extended respiratory pathogen panel to [facility] (will take 7-10 days to return). He does not appear to be fluid overloaded. His BNP is 765. I will obtain an echocardiogram with a bubble study on
[2023-05-09] MEDS: predniSONE 20 MG TABLET 40 MG PO (09:41)
[2023-05-09] MEDS: OPTI-GEN TAB 1 TABLET PO (09:42)
[2023-05-09] MEDS: FENOFIBRATE,MICRONIZED 48 MG TABLET PO (09:42)
[2023-05-09] MEDS: ASPIRIN 81 MG ENTERIC TABLET PO (09:42)
[2023-05-09] MEDS: MEROPENEM 1 GM/NS 100 ML 1 GM/100 ML BAG IVPB ×2 (09:43→21:35)
[2023-05-09 11:26] LABS: Vancomycin Trough 6.5 ug/mL (10.0-20.0)
--- NOTE | 2023-05-09 11:48 | PM.IMPN ---
Progress Note: A&P Assessment and Plan (1) Acute hypercapnic respiratory failure: Code(s): J96.02 - Acute respiratory failure with hypercapnia Status: Acute (2) CO2 narcosis: Code(s): R06.89 - Other abnormalities of breathing Status: Acute (3) Pneumothorax on left: Code(s): J93.9 - Pneumothorax, unspecified Status: Acute (4) Chronic hypoxemic respiratory failure: Code(s): J96.11 - Chronic respiratory failure with hypoxia Status: Acute Plan 77M w/ PMH CAD s/p CABG on 12/10/22 w/ evidence of OM graft occlusion in 2016 denies further treatment, bioprosthetic aortic valve replacement, HLD, HTN, prediabetes, interstitial lung disease w/ IUP pattern w/ chronic hypoxic respiratory failure on 2-3L at home continuous, presents with altered mental status. He lives with . He has been declining for approx 6 months, becoming more weak, losing weight, and having to increase his o2 to 5L on exertion. On the days leading up to admission, the noticed the patient becoming very somnolent. In the ED he was found to have a partial pressure of CO2 of 116.5. BIPAP placed with settings of 12/6 and rate of 4, patient's AMS resolved and repeat VBG revealed PCO2 of 92.9. Admitted on 05/05/23.Chest x-ray with new small left pneumothorax.? Severe chronic interstitial lung disease cannot exclude acute superimposed pneumonia. Acute hypoxic hypercapnic on chronic hypoxic respiratory failure, pneumothorax, exacerbation of interstitial pulmonary disease CT chest revealed a small loculated left pneumothorax at the lateral mid and lower lung zone and interval progression of his ILD. His AMS has resolved with BIPAP, will keep settings at 12/6 and rate of 4.? With pneumothorax will try limit BiPAP use.? Ultimately with hypercapnia will need noninvasive ventilation at discharge however due to presence of pneumothorax this might complicated.? Currently may use Airvo/Vapotherm.? continue solumedrol and schedules nebs.? Pulmonary consultation.? Added doxycycline.? Chest x-ray reviewed.? Discussed with Pulmonary and prefers transferred to higher facility.? Interstitial lung disease interval progression.? Patient on pirfenidone doses increased to 800 mg 3 times a day Cachexia likely due to underlying pulmonary issue.? Dietitian consultation Small loculated left pneumothorax monitor chest x-ray general surgery consulted from the ER SCDs. Full Code. Guarded.? Needs to discuss goals of care. [facility] pending acceptance antibiotics switched to vancomycin and meropenem.? discussed with [facility] and accepted at ICU.? Awaiting bed placement Subjective Date/time seen: 05/09/23 11:48 Interval history: I saw exam patient today, patient was sitting in a chair, eating lunch, patient had palpitation and dyspnea with mild exertion. No new issue or even over the night. Labs reviewed. Exam Narrative: GENERAL: Well-appearing, well-nourished, and in no acute distress. HEAD: Normocephalic, atraumatic. EYES: PERRLA and EOMI. ENT: Nares clear.? Mucous membranes moist. NECK: Supple. CHEST: Coarse breath sound bilaterally no respiratory distress.? On high-flow nasal cannula HEART: Regular rate and rhythm.? Normal peripheral pulses. ABDOMEN: Soft, nontender, nondistended. EXTREMITIES: Normal range of motion.? No edema. SKIN: Warm, dry, no rash. NEURO: No focal deficits.? Alert and oriented x3. PSYCH: Normal mood and affect. Objective Data Vital Signs Vital Signs: Vital Signs - 24 hr 05/08/23 12:00 05/08/23 12:00 05/08/23 14:10 Temperature Pulse Rate 95 86 Respiratory Rate 20 Blood Pressure Pulse Oximetry 100 Oxygen Delivery Nasal Cannula Oxygen Flow Rate 2 05/08/23 16:00 05/08/23 14:00 05/08/23 16:00 Temperature 98.8 F Pulse Rate 111 H 106 H 113 H Respiratory Rate 18 Blood Pressure 137/70 Pulse Oximetry 97 Oxygen Delivery Oxygen Flow Rate 05/08/23
[2023-05-09] MEDS: VANCOMYCIN 1,000 MG/NS 250 ML 1,000 MG/250 ML BAG 250 MG IVPB (12:00)
[2023-05-09] MEDS: FLUTICASONE/SALMETEROL 230-21 MCG INHALER 1 PUFF 2 PUFF INHALATION (20:00)
[2023-05-09] MEDS: MELATONIN 5 MG TABLET PO (21:36)
[2023-05-10] VITALS (13 sets, daily range): BP systolic 125–135; BP diastolic 57–73; PULSE 92–121; RESP 18–32; TEMP 36.3–37; O2SAT 90–100
[2023-05-10] MEDS: FLUTICASONE/SALMETEROL 230-21 MCG INHALER 1 PUFF 2 PUFF INHALATION ×2 (08:03→20:27)
[2023-05-10] MEDS: ASPIRIN 81 MG ENTERIC TABLET PO (08:54)
[2023-05-10] MEDS: OPTI-GEN TAB 1 TABLET PO (08:54)
[2023-05-10] MEDS: predniSONE 20 MG TABLET 40 MG PO (08:54)
[2023-05-10] MEDS: MEROPENEM 1 GM/NS 100 ML 1 GM/100 ML BAG IVPB ×2 (08:54→21:14)
[2023-05-10] MEDS: FENOFIBRATE,MICRONIZED 48 MG TABLET PO (08:54)
[2023-05-10] MEDS: MEGESTROL ACETATE (*CHEMO) 40 MG TABLET PO ×3 (08:54→16:37)
--- NOTE | 2023-05-10 09:41 | PM.IMPN ---
Progress Note: A&P Assessment and Plan (1) Acute hypercapnic respiratory failure: Code(s): J96.02 - Acute respiratory failure with hypercapnia Status: Acute (2) CO2 narcosis: Code(s): R06.89 - Other abnormalities of breathing Status: Acute (3) Pneumothorax on left: Code(s): J93.9 - Pneumothorax, unspecified Status: Acute (4) Chronic hypoxemic respiratory failure: Code(s): J96.11 - Chronic respiratory failure with hypoxia Status: Acute Plan 77M w/ PMH CAD s/p CABG on 12/10/22 w/ evidence of OM graft occlusion in 2016 denies further treatment, bioprosthetic aortic valve replacement, HLD, HTN, prediabetes, interstitial lung disease w/ IUP pattern w/ chronic hypoxic respiratory failure on 2-3L at home continuous, presents with altered mental status. He lives with . He has been declining for approx 6 months, becoming more weak, losing weight, and having to increase his o2 to 5L on exertion. On the days leading up to admission, the noticed the patient becoming very somnolent. In the ED he was found to have a partial pressure of CO2 of 116.5. BIPAP placed with settings of 12/6 and rate of 4, patient's AMS resolved and repeat VBG revealed PCO2 of 92.9. Admitted on 05/05/23.Chest x-ray with new small left pneumothorax.? Severe chronic interstitial lung disease cannot exclude acute superimposed pneumonia. Acute hypoxic hypercapnic on chronic hypoxic respiratory failure, pneumothorax, exacerbation of interstitial pulmonary disease CT chest revealed a small loculated left pneumothorax at the lateral mid and lower lung zone and interval progression of his ILD. His AMS has resolved with BIPAP, will keep settings at 12/6 and rate of 4.? With pneumothorax will try limit BiPAP use.? Ultimately with hypercapnia will need noninvasive ventilation at discharge however due to presence of pneumothorax this might complicated.? Currently may use Airvo/Vapotherm.? continue solumedrol and schedules nebs.? Pulmonary consultation.? Added doxycycline.? Chest x-ray reviewed.? Discussed with Pulmonary and prefers transferred to higher facility.? Interstitial lung disease interval progression.? Patient on pirfenidone doses increased to 800 mg 3 times a day Cachexia likely due to underlying pulmonary issue.? Dietitian consultation Small loculated left pneumothorax monitor chest x-ray general surgery consulted from the ER SCDs. Full Code. Guarded.? Needs to discuss goals of care. [facility] pending acceptance antibiotics switched to vancomycin and meropenem.? discussed with [facility] and accepted at ICU.? Awaiting bed placement Subjective Date/time seen: 05/10/23 09:41 Interval history: I saw exam patient today, patient was sitting in a chair, has some dyspnea with mild exertion. No new issue or even over the night. Labs reviewed. Exam Narrative: GENERAL: Well-appearing, well-nourished, and in no acute distress. HEAD: Normocephalic, atraumatic. EYES: PERRLA and EOMI. ENT: Nares clear.? Mucous membranes moist. NECK: Supple. CHEST: Coarse breath sound bilaterally no respiratory distress.? On high-flow nasal cannula HEART: Regular rate and rhythm.? Normal peripheral pulses. ABDOMEN: Soft, nontender, nondistended. EXTREMITIES: Normal range of motion.? No edema. SKIN: Warm, dry, no rash. NEURO: No focal deficits.? Alert and oriented x3. PSYCH: Normal mood and affect. Objective Data Vital Signs Vital Signs: Vital Signs - 24 hr 05/09/23 10:00 05/09/23 12:00 05/09/23 12:00 Temperature 98.6 F Pulse Rate 110 H 110 H 112 H Respiratory Rate 24 H Blood Pressure 139/72 Pulse Oximetry 90 Oxygen Delivery Oxygen Flow Rate 05/09/23 12:00 05/09/23 14:00 05/09/23 16:00 Temperature 97.9 F Pulse Rate 112 H 109 H 117 H Respiratory Rate 24 H Blood Pressure 138/74 Pulse Oximetry 90 93 Oxygen Delivery Nasal Cannula Oxygen Flow Rate 2 05/09/23 1
--- NOTE | 2023-05-10 09:45 | PM.PNPUL ---
Progress Note: A&P Assessment and Plan (1) ILD (interstitial lung disease): Code(s): J84.9 - Interstitial pulmonary disease, unspecified Status: Acute Assessment and Plan: 77-year-old with a history of interstitial lung disease with CT scan consistent with UIP followed at [facility] interstitial lung disease and given clinical diagnosis of IPF on pirfenidone since about 08/2018. ILD first seen on a CXR in our system from 04/15/2011 and on the first CT chest scan in our system on 02/16/2012 with extensive interlobular septal thickening with improved ground-glass opacity. Last office visit I have from [facility] ILD clinic on 07/21/2022 stated the patient had more shortness of breath, weight loss, but was still able to mow his grass and do gardening. His saturations on 2 L nasal cannula were 96%. FVC was 1.33 L, 45% predicted. FEV1 was 1.33 L, 59% predicted and compared to 12/16/2021 the FVC had decreased from 1.86 L to 1.33 L. The FEV1 had decreased from 1.66 L to 1.33 L. On 12/16/2021 the total lung capacity was 3.02 L, 52% predicted. The DLCO adjusted was 35%. An ABG was 7.41/46/71. Spirometry on 12/2018 with an FVC of 2.18 L, 64% predicted. TLC 3.95 L, 77% predicted, DLCO 93% predicted. CT scan showed progressive fibrosis in the upper lobe and was recommended to switch the patient from pirfenidone to Ofev but the patient wished to remain on pirfenidone. Follow-up in 6 months. The family tells me he had a follow-up appointment in January of 2023 but I do not have that documentation. At that time he was told that he is not a lung transplant candidate. His breathing tests were mildly worse but not as bad as anticipated. Pulmonary rehabilitation was recommended. There was no discussion of switching to Ofev. Recently he has had worsening respiratory symptoms, worsening oxygenation associated with green phlegm. He presented to the hospital on 05/05/2022 with altered mental status and acute on chronic hypercarbic and hypoxemic respiratory failure. He was treated with BiPAP with improvement of his PaCO2 and improved mental status. He was also found to have a left pneumothorax. 05/07/23: Patient attempted to wear the noninvasive ventilator with the AVAPS mode rate of 16, tidal volume 350, EPAP 4, minimal inspiratory pressure 8, maximal inspiratory pressure 20 and 32% FiO2 overnight. The patient and the tells me he did not tolerate the fullface mask and although he said he slept the said he was up most of the night struggling with the mask. Currently the patient is on Vapotherm with 40 L flow and 32% FiO2 with saturations 96%. Overall the patient tells me that he is better, he continues to cough with green phlegm, he has fatigue and shortness of breath when he talks. Overall he says he is 30% better. Plan: I spoke with the patient, his and son and at this time they are interested in pursuing aggressive therapy for his progressive interstitial lung disease. Patient should be transferred to [facility] so that he can be evaluated by the interstitial Lung Disease team for his progressive worsening interstitial lung disease for optimal inpatient hospitalization, utility of noninvasive ventilation at home and any salvage therapies that may be available. He should also be evaluated by thoracic surgery for his new onset pneumothorax. I have discussed this with the hospitalist, Dr. Grady, who will initiate this transfer. While he is at [facility] I will continue with Solu-Medrol but decrease the dose to 20 mg IV q.6 for possible IPF exacerbation. I will treat possible bacterial infection aggressively and change his doxycycline to vancomycin and meropenem. I will send a repeat COVID, influenza and RSV RT PCR study as well as an extended respiratory pathogen panel to [facility] (will take 7-10 days to return). He does not appear to be fluid overloaded. His BNP is 765. I will obtain an echocardiogram with a bubble study on
--- NOTE | 2023-05-10 13:19 | PCNFU ---
Nutrition Follow-Up Complete: Severe Protein Malnutrition related to inadequate protein-energy intake with increased protein-energy needs in setting of chronic diease or condition(interstitual lung disease) as evidenced by minimal oral intake for > 1-2 months: moderate subcutaenous fat loss (orbital fat pads) and moderate muscle wasting (deltoids). Goal: Adequate Intake of at least 75% of meals/supplements - Meeting goal. Continue with same goal Pt current nutrition is Regular diet, Ensure Enlive TID for additional 350 kcal and 20 g protein each. Nutrition recommendation: Continue current nutrition care plan and orders. Agree with orders Last recorded weight is 45 kg. Bowel Motility: +1 BM 05/08/23 Labs Reviewed: Hgb 8.9, Hct 29.1, BUN 23, Glu 180 Meds Noted: Megace, prednisone Skin: WNL Additional Notes: Intakes are good. Pt gained 4 lbs since admission. Transfer to [place] pending RD will monitor weight, labs, skin, oral intake every 5 days.
[2023-05-10] MEDS: MELATONIN 5 MG TABLET PO (21:14)
[2023-05-11] VITALS (15 sets, daily range): BP systolic 117–158; BP diastolic 57–81; PULSE 94–120; RESP 20–24; TEMP 36.6–36.8; O2SAT 93–100
[2023-05-11 08:13] LABS: Basophils Percent Auto 0.1 % (0.2-1.2); Eosinophils Absolute Auto 0.4 K/mm3 (0-0.3); Eosinophils Percent Auto 2.7 % (0-4.4); Hematocrit 32.6 % (42.0-52.0); Immature Granulocyte Absolute 0.09 K/mm3 (0.00-0.031); Immature Granulocyte Percent A 0.7 % (0-0.5); Lymphocytes Absolute Auto 1.15 K/mm3 (0.9-3.2); Lymphocytes Percent Auto 8.3 % (18.3-44.2); Mean Corpuscular HGB Conc 30.7 g/dl (32-36); Mean Corpuscular Hemoglobin 31.3 pg (26-34); Mean Corpuscular Volume 101.9 fl (80-100); Mean Platelet Volume 8.5 fl (7.4-10.4); Monocytes Absolute Auto 0.9 K/mm3 (0.1-0.6); Monocytes Percent Auto 6.5 % (2.6-8.5); Neutrophils Absolute Auto 11.3 K/mm3 (1.3-6.7); Neutrophils Percent Auto 81.7 % (45.5-73.1); Platelet Count Result 224 k/mm3 (150-375); Red Cell Distribution Width 12.3 % (11.5-14.5); White Blood Count 13.8 K/mm3 (4.5-10.0)
[2023-05-11 08:28] LABS: Alanine Aminotransferase 20 U/L (6-50); Alkaline Phosphatase 40 U/L (38-126); Aspartate Amino Transferase 23 U/L (17-59); Bilirubin,Total 0.3 mg/dL (0.2-1.3); Blood Urea Nitrogen 30 mg/dL (9-20); Carbon Dioxide > 40 mmol/L (22-30); Chloride 90 mmol/L (98-107); Estimated CRCL calculation 48 ml/min; Estimated Glomerular Filt Rate > 60; Glucose 126 mg/dL (65-110); Potassium 4.6 mmol/L (3.4-5.0); Sodium 135 mmol/L (137-145)
[2023-05-11] MEDS: predniSONE 20 MG TABLET 40 MG PO (10:15)
[2023-05-11] MEDS: MEGESTROL ACETATE (*CHEMO) 40 MG TABLET PO ×3 (10:15→17:14)
[2023-05-11] MEDS: MEROPENEM 1 GM/NS 100 ML 1 GM/100 ML BAG IVPB ×2 (10:15→20:49)
[2023-05-11] MEDS: FENOFIBRATE,MICRONIZED 48 MG TABLET PO (10:15)
[2023-05-11] MEDS: OPTI-GEN TAB 1 TABLET PO (10:15)
[2023-05-11] MEDS: ASPIRIN 81 MG ENTERIC TABLET PO (10:15)
[2023-05-11] MEDS: FLUTICASONE/SALMETEROL 230-21 MCG INHALER 1 PUFF 2 PUFF INHALATION ×2 (10:58→20:09)
--- NOTE | 2023-05-11 13:18 | PM.PNPUL ---
Progress Note: A&P Assessment and Plan (1) ILD (interstitial lung disease): Code(s): J84.9 - Interstitial pulmonary disease, unspecified Status: Acute Assessment and Plan: 77-year-old with a history of interstitial lung disease with CT scan consistent with UIP followed at [facility] interstitial lung disease and given clinical diagnosis of IPF on pirfenidone since about 08/2018. ILD first seen on a CXR in our system from 04/15/2011 and on the first CT chest scan in our system on 02/16/2012 with extensive interlobular septal thickening with improved ground-glass opacity. Last office visit I have from [facility] ILD clinic on 07/21/2022 stated the patient had more shortness of breath, weight loss, but was still able to mow his grass and do gardening. His saturations on 2 L nasal cannula were 96%. FVC was 1.33 L, 45% predicted. FEV1 was 1.33 L, 59% predicted and compared to 12/16/2021 the FVC had decreased from 1.86 L to 1.33 L. The FEV1 had decreased from 1.66 L to 1.33 L. On 12/16/2021 the total lung capacity was 3.02 L, 52% predicted. The DLCO adjusted was 35%. An ABG was 7.41/46/71. Spirometry on 12/2018 with an FVC of 2.18 L, 64% predicted. TLC 3.95 L, 77% predicted, DLCO 93% predicted. CT scan showed progressive fibrosis in the upper lobe and was recommended to switch the patient from pirfenidone to Ofev but the patient wished to remain on pirfenidone. Follow-up in 6 months. The family tells me he had a follow-up appointment in January of 2023 but I do not have that documentation. At that time he was told that he is not a lung transplant candidate. His breathing tests were mildly worse but not as bad as anticipated. Pulmonary rehabilitation was recommended. There was no discussion of switching to Ofev. Recently he has had worsening respiratory symptoms, worsening oxygenation associated with green phlegm. He presented to the hospital on 05/05/2022 with altered mental status and acute on chronic hypercarbic and hypoxemic respiratory failure. He was treated with BiPAP with improvement of his PaCO2 and improved mental status. He was also found to have a left pneumothorax. 05/07/23: Patient attempted to wear the noninvasive ventilator with the AVAPS mode rate of 16, tidal volume 350, EPAP 4, minimal inspiratory pressure 8, maximal inspiratory pressure 20 and 32% FiO2 overnight. The patient and the tells me he did not tolerate the fullface mask and although he said he slept the said he was up most of the night struggling with the mask. Currently the patient is on Vapotherm with 40 L flow and 32% FiO2 with saturations 96%. Overall the patient tells me that he is better, he continues to cough with green phlegm, he has fatigue and shortness of breath when he talks. Overall he says he is 30% better. Plan: I spoke with the patient, his and son and at this time they are interested in pursuing aggressive therapy for his progressive interstitial lung disease. Patient should be transferred to [facility] so that he can be evaluated by the interstitial Lung Disease team for his progressive worsening interstitial lung disease for optimal inpatient hospitalization, utility of noninvasive ventilation at home and any salvage therapies that may be available. He should also be evaluated by thoracic surgery for his new onset pneumothorax. I have discussed this with the hospitalist, Dr. Grady, who will initiate this transfer. While he is at [facility] I will continue with Solu-Medrol but decrease the dose to 20 mg IV q.6 for possible IPF exacerbation. I will treat possible bacterial infection aggressively and change his doxycycline to vancomycin and meropenem. I will send a repeat COVID, influenza and RSV RT PCR study as well as an extended respiratory pathogen panel to [facility] (will take 7-10 days to return). He does not appear to be fluid overloaded. His BNP is 765. I will obtain an echocardiogram with a bubble study on
[2023-05-11 15:11] LABS: Adenovirus DNA Not Detected (Not Detected); Chlamydophila pneumoniae Not Detected (Not Detected); Coronavirus 229E Not Detected (Not Detected); Coronavirus HKU1 Not Detected (Not Detected); Coronavirus NL63 Not Detected (Not Detected); Coronavirus OC43 Not Detected (Not Detected); Human Metapneumovirus Not Detected (Not Detected); Human Parainfluenza Virus 1 Not Detected (Not Detected); Human Parainfluenza Virus 2 Not Detected (Not Detected); Human Parainfluenza Virus 3 Not Detected (Not Detected); Human Parainfluenza Virus 4 Not Detected (Not Detected); Human RSV B Not Detected (Not Detected); Influenza A Not Detected (Not Detected); Influenza B Not Detected (Not Detected); Mycoplasma pneumoniae Not Detected (Not Detected); Rhinovirus/Enterovirus Not Detected (Not Detected)
--- NOTE | 2023-05-11 16:58 | PM.DS ---
DS: Summary Time Spent with Patient Time attestation: Total time spent providing and/or coordinating discharge services: DS: Data Data Completed and Pending Labs on day of discharge: Labs from last 24 hours 05/11/23 05/07/23 08:05 10:12 WBC 13.8 H RBC 3.20 L Hgb 10.0 L Hct 32.6 L MCV 101.9 H MCH 31.3 MCHC 30.7 L RDW 12.3 Plt Count 224 MPV 8.5 Immature Gran % (Auto) 0.7 H Neut % (Auto) 81.7 H Lymph % (Auto) 8.3 L Morton % (Auto) 6.5 Eos % (Auto) 2.7 Baso % (Auto) 0.1 L Lymph # (Auto) 1.15 Morton # (Auto) 0.9 H Eos # (Auto) 0.4 H Baso # (Auto) 0.0 Abs Immat Gran (auto) 0.09 H Absolute Neuts (auto) 11.3 H Absolute Nucleated RBC 0.0 Nucleated RBC % 0.0 Sodium 135 L Potassium 4.6 Chloride 90 L Carbon Dioxide > 40 H Anion Gap BUN 30 H Creatinine 0.70 Estim Creat Clear Calc 48 Estimated GFR > 60 Glucose 126 H Calcium 9.0 Total Bilirubin 0.3 AST 23 ALT 20 Alkaline Phosphatase 40 Total Protein 6.0 L Albumin 3.0 L Nasal RSV Type A (PCR) Not detected Nasal RSV Type B (PCR) Not detected Chlamy pneumoniae PCR Not detected Adenovirus DNA Not detected Human Bocavirus (WAYLON) Not detected Coronavirus Type OC43 Not detected Coronavirus Type HKU1 Not detected Coronavirus Type 229E Not detected Coronavirus Type NL63 Not detected Human Metapneumovir PCR Not detected Influenza A (PCR) Not detected Influenza A (H1) RNA Not detected Influenza A (H3) PCR Not detected M. pneumoniae DNA Not detected Parainfluenza PCR Not detected Parainfluenza 2 (PCR) Not detected Parainfluenza 3 RNA (PCR) Not detected Parainfluenza 4 (PCR) Not detected Rhino/Enterovirus (WAYLON) Not detected SARS-CoV-2 RNA (RT-PCR) Not detected Influenza Type B (PCR) Not detected Misc Test Comment see below Discharge Plan Discharge Consulting providers: Kimi Marino; Elder Diaz Patient Disposition: Home Health Service Discharge Instructions: Per Care Coordination: [facility] has been arranged to follow at discharge. [facility] will contact you prior to their first visit. [facility] will follow for PT/OT eval and treat. [facility] can be contacted at [phone] Patient Instructions: Antibiotic Form, Acute Respiratory Failure (GEN) Stand Alone Forms: General Discharge Information Discharge Medications: No Action aspirin 81 mg tablet,delayed release (DR/EC) 81 mg PO DAILY coenzyme Q10 [CoQ-10] 100 mg capsule 100 mg PO DAILY turmeric 400 mg capsule 400 mg PO DAILY Krill Oil ([place] 3 and 6) 1,500-165-67.5 mg capsule 1 cap PO DAILY berberine-herbal comb no.18 Capsule 1 cap PO DAILY fenofibrate 54 mg tablet 54 mg PO DAILY Praluent Pen 75 mg/mL pen injector 75 mg subcut Q14D Rx Instructions: inject into abdomen, thigh, or upper arm (deltoid muscle); rotate sites (DME) Accu-Chek SmartView Test Strip Strip See Rx Instructions .Route Qty: 100 11RF Rx Instructions: As directed daily Centrum Silver Men 300-600-300 mcg tablet 1 tablet PO DAILY fluticasone propion-salmeterol [Advair Diskus] 500-50 mcg/dose blister with device 1 inh inhalation BID PRN (Reason: Shortness Of Breath Or Wheezing) pirfenidone [Esbriet] 801 mg tablet 267 mg PO DAILY Rx Instructions: take with food. eszopiclone [Lunesta] 2 mg tablet 2 mg PO QHS PRN (Reason: insomnia) megestrol 40 mg tablet 40 mg PO TID Qty: 90 0RF Date of admission: 05/04/23 20:42 Primary Care Provider: Mary Barger Admitting Provider: Marisol Frazier Attending physician on admission: Marisol Frazier Condition: Serious
--- NOTE | 2023-05-11 16:59 | PM.IMPN ---
Progress Note: A&P Assessment and Plan (1) Acute hypercapnic respiratory failure: Code(s): J96.02 - Acute respiratory failure with hypercapnia Status: Acute (2) CO2 narcosis: Code(s): R06.89 - Other abnormalities of breathing Status: Acute (3) Pneumothorax on left: Code(s): J93.9 - Pneumothorax, unspecified Status: Acute (4) Chronic hypoxemic respiratory failure: Code(s): J96.11 - Chronic respiratory failure with hypoxia Status: Acute Plan 77M w/ PMH CAD s/p CABG on 12/10/22 w/ evidence of OM graft occlusion in 2016 denies further treatment, bioprosthetic aortic valve replacement, HLD, HTN, prediabetes, interstitial lung disease w/ IUP pattern w/ chronic hypoxic respiratory failure on 2-3L at home continuous, presents with altered mental status. He lives with . He has been declining for approx 6 months, becoming more weak, losing weight, and having to increase his o2 to 5L on exertion. On the days leading up to admission, the noticed the patient becoming very somnolent. In the ED he was found to have a partial pressure of CO2 of 116.5. BIPAP placed with settings of 12/6 and rate of 4, patient's AMS resolved and repeat VBG revealed PCO2 of 92.9. Admitted on 05/05/23.Chest x-ray with new small left pneumothorax.? Severe chronic interstitial lung disease cannot exclude acute superimposed pneumonia. Acute hypoxic hypercapnic on chronic hypoxic respiratory failure, pneumothorax, exacerbation of interstitial pulmonary disease CT chest revealed a small loculated left pneumothorax at the lateral mid and lower lung zone and interval progression of his ILD. His AMS has resolved with BIPAP, will keep settings at 12/6 and rate of 4.? With pneumothorax will try limit BiPAP use.? Ultimately with hypercapnia will need noninvasive ventilation at discharge however due to presence of pneumothorax this might complicated.? Currently may use Airvo/Vapotherm.? continue solumedrol and schedules nebs.? Pulmonary consultation.? Added doxycycline.? Chest x-ray reviewed.? Discussed with Pulmonary and prefers transferred to higher facility.? Interstitial lung disease interval progression.? Patient is on prednisone p.o. doses increased to 800 mg 3 times a day initially, now patient is on prednisone 40 mg daily p.o., plans decrease prednisone to 30 mg daily p.o. tomorrow Continue meropenem, day 5.? Continue Advair.? Cachexia likely due to underlying pulmonary issue.? Dietitian consultation Small loculated left pneumothorax monitor chest x-ray general surgery consulted from the ER SCDs. Full Code. Guarded.? Needs to discuss goals of care. [place] pending acceptance antibiotics switched to vancomycin and meropenem.? discussed with [facility] and accepted at ICU. Awaiting bed placement. May discharge patient back home on Sunday if patient can not be transferred Subjective Date/time seen: 05/11/23 16:59 Interval history: I saw and examined the patient today, patient condition continue to improve, no obvious distress at rest. But patient had obvious tachypnea patient was eating lunch. Patient was afebrile over the night, patient on 2 L oxygen, patient has tachypnea, blood pressure stable Exam Narrative: GENERAL: Well-appearing, well-nourished, and in no acute distress. HEAD: Normocephalic, atraumatic. EYES: PERRLA and EOMI. ENT: Nares clear.? Mucous membranes moist. NECK: Supple. CHEST: Coarse breath sound bilaterally no respiratory distress.? On high-flow nasal cannula HEART: Regular rate and rhythm.? Normal peripheral pulses. ABDOMEN: Soft, nontender, nondistended. EXTREMITIES: Normal range of motion.? No edema. SKIN: Warm, dry, no rash. NEURO: No focal deficits.? Alert and oriented x3. PSYCH: Normal mood and affect. Objective Data Vital Signs Vital Signs: Vital Signs - 24 hr 05/10/23 18:00 05/10/23 20:00 05/10/23 20:00 Temperature 97.5 F L Pulse Rate 112 H 10
[2023-05-11] MEDS: MELATONIN 5 MG TABLET PO (20:54)
[2023-05-12] VITALS (22 sets, daily range): BP systolic 123–153; BP diastolic 61–73; PULSE 99–117; RESP 20–26; TEMP 36.3–37.1; O2SAT 93–100
[2023-05-12] MEDS: MEGESTROL ACETATE (*CHEMO) 40 MG TABLET PO ×3 (06:07→16:34)
[2023-05-12] MEDS: FLUTICASONE/SALMETEROL 230-21 MCG INHALER 1 PUFF 2 PUFF INHALATION ×2 (08:35→20:15)
[2023-05-12] MEDS: ASPIRIN 81 MG ENTERIC TABLET PO (08:57)
[2023-05-12] MEDS: FENOFIBRATE,MICRONIZED 48 MG TABLET PO (08:57)
[2023-05-12] MEDS: MEROPENEM 1 GM/NS 100 ML 1 GM/100 ML BAG IVPB ×2 (08:57→20:28)
[2023-05-12] MEDS: predniSONE 10 MG TABLET 30 MG PO (08:58)
[2023-05-12] MEDS: OPTI-GEN TAB 1 TABLET PO (08:58)
--- NOTE | 2023-05-12 12:08 | PM.IMPN ---
Progress Note: A&P Assessment and Plan (1) Acute hypercapnic respiratory failure: Code(s): J96.02 - Acute respiratory failure with hypercapnia Status: Acute (2) CO2 narcosis: Code(s): R06.89 - Other abnormalities of breathing Status: Acute (3) Pneumothorax on left: Code(s): J93.9 - Pneumothorax, unspecified Status: Acute (4) Chronic hypoxemic respiratory failure: Code(s): J96.11 - Chronic respiratory failure with hypoxia Status: Acute Plan 77M w/ PMH CAD s/p CABG on 12/10/22 w/ evidence of OM graft occlusion in 2016 denies further treatment, bioprosthetic aortic valve replacement, HLD, HTN, prediabetes, interstitial lung disease w/ IUP pattern w/ chronic hypoxic respiratory failure on 2-3L at home continuous, presents with altered mental status. He lives with . He has been declining for approx 6 months, becoming more weak, losing weight, and having to increase his o2 to 5L on exertion. On the days leading up to admission, the noticed the patient becoming very somnolent. In the ED he was found to have a partial pressure of CO2 of 116.5. BIPAP placed with settings of 12/6 and rate of 4, patient's AMS resolved and repeat VBG revealed PCO2 of 92.9. Admitted on 05/05/23.Chest x-ray with new small left pneumothorax.? Severe chronic interstitial lung disease cannot exclude acute superimposed pneumonia. Acute hypoxic hypercapnic on chronic hypoxic respiratory failure, pneumothorax, exacerbation of interstitial pulmonary disease CT chest revealed a small loculated left pneumothorax at the lateral mid and lower lung zone and interval progression of his ILD. His AMS has resolved with BIPAP, will keep settings at 12/6 and rate of 4.? With pneumothorax will try limit BiPAP use.? Ultimately with hypercapnia will need noninvasive ventilation at discharge however due to presence of pneumothorax this might complicated.? Currently may use Airvo/Vapotherm.? continue solumedrol and schedules nebs.? Pulmonary consultation.? Added doxycycline.? Chest x-ray reviewed.? Discussed with Pulmonary and prefers transferred to higher facility.? Interstitial lung disease interval progression.? Patient is on prednisone p.o. doses increased to 800 mg 3 times a day initially, now patient is on prednisone 40 mg daily p.o., plans decrease prednisone to 30 mg daily p.o. tomorrow Continue meropenem, day 5.? Continue Advair.? Cachexia likely due to underlying pulmonary issue.? Dietitian consultation Small loculated left pneumothorax monitor chest x-ray general surgery consulted from the ER SCDs. Full Code. Guarded.? Needs to discuss goals of care. [place] pending acceptance antibiotics switched to vancomycin and meropenem.? discussed with [facility] and accepted at ICU. Awaiting bed placement. May discharge patient back home on Sunday if patient can not be transferred Time Spent With Patient Time with patient: 25 - 35 minutes Subjective Date/time seen: 05/12/23 12:08 Interval history: I saw and examined the patient today, patient condition continue to improve, no obvious distress at rest. But patient had obvious tachypnea patient was eating lunch. Patient was afebrile over the night, patient on 2-3 L oxygen, patient has tachypnea, blood pressure stable. Awaiting transfer to [place], was considering downgrade to Med/Surg but this caused panic for patient and . Discussed with nursing staff and decided to keep in IMU. Review of Systems Review of Systems: All systems reviewed & are unremarkable except as noted in HPI and below (HPI) Exam Narrative: GENERAL: Well-appearing, well-nourished, and in no acute distress. HEAD: Normocephalic, atraumatic. EYES: PERRLA and EOMI. ENT: Nares clear.? Mucous membranes moist. NECK: Supple. CHEST: Coarse breath sound bilaterally no respiratory distress.? On nasal cannula HEART: Regular rate and rhythm.? Normal peripheral pulses. ABDOMEN: Soft, no
[2023-05-12] MEDS: MELATONIN 5 MG TABLET PO (21:49)
[2023-05-13] VITALS (18 sets, daily range): BP systolic 113–152; BP diastolic 57–77; PULSE 90–118; RESP 14–20; TEMP 36.6–37.3; O2SAT 93–100
[2023-05-13] MEDS: MEGESTROL ACETATE (*CHEMO) 40 MG TABLET PO ×3 (07:12→17:30)
[2023-05-13] MEDS: FLUTICASONE/SALMETEROL 230-21 MCG INHALER 1 PUFF 2 PUFF INHALATION ×2 (09:22→20:07)
[2023-05-13 09:52] LABS: Alveolar/Arterial O2 Gradient 87.4 mmHg; Base Excess ABG 15.7 mEq/l (+/-2.0); Fractional Inspired Oxygen 28 %; HCO3 ABG 42.9 mEq/l (22.0-26.0); Oxygen Content ABG 8.8 %vol (16.0-22.0); PO2 FiO2 Ratio Arterial Blood 1.09 %; Total Hemoglobin 10.1 g/dL (12.0-18.0); pH ABG 7.409 (7.350-7.450)
[2023-05-13 09:56] LABS: PCO2 ABG 69.4 mmHg (35.0-45.0)
[2023-05-13 09:57] LABS: PO2 ABG 30.4 mmHg (80.0-100.0)
[2023-05-13 09:58] LABS: Oxygen Saturation ABG 55.6 % (95.0-100.0)
[2023-05-13 09:59] LABS: Device NASAL CANNULA; Modified Allen's Test Pass; Oxyhemoglobin 62.2 % THb (90.0-100.0); Site Drawn RIGHT RADIAL
[2023-05-13] MEDS: predniSONE 10 MG TABLET 30 MG PO (10:01)
[2023-05-13] MEDS: ASPIRIN 81 MG ENTERIC TABLET PO (10:01)
[2023-05-13] MEDS: FENOFIBRATE,MICRONIZED 48 MG TABLET PO (10:01)
[2023-05-13] MEDS: OPTI-GEN TAB 1 TABLET PO (10:01)
[2023-05-13] MEDS: MEROPENEM 1 GM/NS 100 ML 1 GM/100 ML BAG IVPB ×2 (10:02→21:37)
--- NOTE | 2023-05-13 15:39 | PM.IMPN ---
Progress Note: A&P Assessment and Plan (1) Acute hypercapnic respiratory failure: Code(s): J96.02 - Acute respiratory failure with hypercapnia Status: Acute (2) CO2 narcosis: Code(s): R06.89 - Other abnormalities of breathing Status: Acute (3) Pneumothorax on left: Code(s): J93.9 - Pneumothorax, unspecified Status: Acute (4) Chronic hypoxemic respiratory failure: Code(s): J96.11 - Chronic respiratory failure with hypoxia Status: Acute Plan 77M w/ PMH CAD s/p CABG on 12/10/22 w/ evidence of OM graft occlusion in 2016 denies further treatment, bioprosthetic aortic valve replacement, HLD, HTN, prediabetes, interstitial lung disease w/ IUP pattern w/ chronic hypoxic respiratory failure on 2-3L at home continuous, presents with altered mental status. He lives with . He has been declining for approx 6 months, becoming more weak, losing weight, and having to increase his o2 to 5L on exertion. On the days leading up to admission, the noticed the patient becoming very somnolent. In the ED he was found to have a partial pressure of CO2 of 116.5. BIPAP placed with settings of 12/6 and rate of 4, patient's AMS resolved and repeat VBG revealed PCO2 of 92.9. Admitted on 05/05/23.Chest x-ray with new small left pneumothorax.? Severe chronic interstitial lung disease cannot exclude acute superimposed pneumonia. Acute hypoxic hypercapnic on chronic hypoxic respiratory failure, pneumothorax, exacerbation of interstitial pulmonary disease CT chest revealed a small loculated left pneumothorax at the lateral mid and lower lung zone and interval progression of his ILD. His AMS has resolved with BIPAP, will keep settings at 12/6 and rate of 4.? With pneumothorax will try limit BiPAP use.? Ultimately with hypercapnia will need noninvasive ventilation at discharge however due to presence of pneumothorax this might complicated.? Currently may use Airvo/Vapotherm.? continue solumedrol and schedules nebs.? Pulmonary consultation.? Added doxycycline.? Chest x-ray reviewed.? Discussed with Pulmonary and prefers transferred to higher facility.? Interstitial lung disease interval progression.? Patient is on prednisone p.o. doses increased to 800 mg 3 times a day initially, now patient is on prednisone 40 mg daily p.o., plans decrease prednisone to 30 mg daily p.o. tomorrow Continue meropenem, day 5.? Continue Advair.? Cachexia likely due to underlying pulmonary issue.? Dietitian consultation Small loculated left pneumothorax monitor chest x-ray general surgery consulted from the ER SCDs. Full Code. Guarded.? Needs to discuss goals of care. [place] pending acceptance antibiotics switched to vancomycin and meropenem.? discussed with [facility] and accepted days ago. Awaiting bed placement. May discharge patient back home on Sunday if patient can not be transferred Subjective Date/time seen: 05/13/23 15:39 Interval history: Patient appears comfortable on supplemental oxygenation and bedrest, desaturates with ambulation. Pulmonology to clarify with patient/ that in order to be transferred to [place], he cannot be discharged home first to wait for a [place] bed. Review of Systems Review of Systems: All systems reviewed & are unremarkable except as noted in HPI and below (HPI) Exam Narrative: GENERAL: chronically ill appearing, mal-nourished, on supplemental oxygenation EYES: PERRLA and EOMI. ENT: Nares clear.? Mucous membranes moist. NECK: Supple. CHEST: Coarse breath sound bilaterally no respiratory distress.? On nasal cannula HEART: Mildly tachycardic rate and regular rhythm.? Normal peripheral pulses. ABDOMEN: Soft, nontender, nondistended. EXTREMITIES: Normal range of motion.? No edema. SKIN: Warm, dry, no rash. NEURO: No focal deficits.? Alert and oriented x3. PSYCH: Normal mood and affect. Objective Data Vital Signs Vital Signs: Vital Signs - 24 hr 05/12/23
--- NOTE | 2023-05-13 19:27 | P.PNPL_ITS ---
Progress Note: A&P Assessment and Plan (1) ILD (interstitial lung disease): Code(s): J84.9 - Interstitial pulmonary disease, unspecified Status: Acute Assessment and Plan: 77-year-old with a history of interstitial lung disease with CT scan consistent with UIP followed at 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 ILD first seen on a CXR in our system from 04/15/2011 and on the first CT chest scan in our system on 02/16/2012 with extensive interlobular septal thickening with improved ground- glass opacity. Last office visit I have from [facility] ILD clinic on 07/21/2022 stated the patient had more shortness of breath, weight loss, but was still able to mow his grass and do gardening. His saturations on 2 L nasal cannula were 96%. FVC was 1.33 L, 45% predicted. FEV1 was 1.33 L, 59% predicted and compared to 12/16/2021 the FVC had decreased from 1.86 L to 1.33 L. The FEV1 had decreased from 1.66 L to 1.33 L. On 12/16/2021 the total lung capacity was 3.02 L, 52% predicted. The DLCO adjusted was 35%. An ABG was 7.41/46/71. Spirometry on 12/2018 with an FVC of 2.18 L, 64% predicted. TLC 3.95 L, 77% predicted, DLCO 93% predicted. CT scan showed progressive fibrosis in the upper lobe and was recommended to switch the patient from pirfenidone to Ofev but the patient wished to remain on pirfenidone. Follow-up in 6 months. The family tells me he had a follow-up appointment in January of 2023 but I do not have that documentation. At that time he was told that he is not a lung transplant candidate. His breathing tests were mildly worse but not as bad as anticipated. Pulmonary rehabilitation was recommended. There was no discussion of switching to Ofev. Recently he has had worsening respiratory symptoms, worsening oxygenation associated with green phlegm. He presented to the hospital on 05/05/2022 with altered mental status and acute on chronic hypercarbic and hypoxemic respiratory failure. He was treated with BiPAP with improvement of his PaCO2 and improved mental status. He was also found to have a left pneumothorax. 05/07/23: Patient attempted to wear the noninvasive ventilator with the AVAPS mode rate of 16, tidal volume 350, EPAP 4, minimal inspiratory pressure 8, maximal inspiratory pressure 20 and 32% FiO2 overnight. The patient and the tells me he did not tolerate the fullface mask and although he said he slept the said he was up most of the night struggling with the mask. Currently the patient is on Vapotherm with 40 L flow and 32% FiO2 with saturat ions 96%. Overall the patient tells me that he is better, he continues to cough with green phlegm, he has fatigue and shortness of breath when he talks. Overall he says he is 30% better. Plan: I spoke with the patient, his and son and at this time they are interested in pursuing aggressive therapy for his progressive interstitial lung disease. Patient should be transferred to [facility] so that he can be evaluated by the interstitial Lung Disease team for his progressive worsening interstitial lung disease for optimal inpatient hospitalization, utility of noninvasive ventilation at home and any salvage therapies that may be available. He should also be evaluated by thoracic surgery for his new onset pneumothorax. I have discussed this with the hospitalist, Dr. Grady, who will initiate this transfer. While he is at [facility] I will continue with Solu-Medrol but decrease the dose to 20 mg IV q.6 for possible IPF exacerbation. I will treat possible bacterial infection aggressively and change his doxycycline to vancomycin and meropenem. I will send a repeat COVID, influenza and RSV RT PCR study a
[2023-05-13] MEDS: MELATONIN 5 MG TABLET PO (21:37)
[2023-05-14] VITALS (15 sets, daily range): BP systolic 120–159; BP diastolic 59–94; PULSE 98–121; RESP 15–28; TEMP 36.2–37.1; O2SAT 10–100
[2023-05-14 05:25] LABS: Basophils Percent Auto 0.1 % (0.2-1.2); Eosinophils Absolute Auto 0.2 K/mm3 (0-0.3); Eosinophils Percent Auto 1.3 % (0-4.4); Hematocrit 29.9 % (42.0-52.0); Immature Granulocyte Absolute 0.12 K/mm3 (0.00-0.031); Lymphocytes Absolute Auto 1.37 K/mm3 (0.9-3.2); Lymphocytes Percent Auto 11.5 % (18.3-44.2); Mean Corpuscular HGB Conc 30.1 g/dl (32-36); Mean Corpuscular Volume 103.1 fl (80-100); Mean Platelet Volume 8.8 fl (7.4-10.4); Monocytes Absolute Auto 1.1 K/mm3 (0.1-0.6); Monocytes Percent Auto 9.6 % (2.6-8.5); Neutrophils Absolute Auto 9.1 K/mm3 (1.3-6.7); Neutrophils Percent Auto 76.5 % (45.5-73.1); Platelet Count Result 256 k/mm3 (150-375); Red Cell Distribution Width 12.3 % (11.5-14.5); White Blood Count 11.9 K/mm3 (4.5-10.0)
[2023-05-14 05:35] LABS: Alanine Aminotransferase 18 U/L (6-50); Albumin Level 2.9 g/dL (3.5-5.1); Alkaline Phosphatase 35 U/L (38-126); Aspartate Amino Transferase 23 U/L (17-59); Bilirubin,Total 0.4 mg/dL (0.2-1.3); Blood Urea Nitrogen 24 mg/dL (9-20); Calcium 8.7 mg/dL (8.4-10.2); Carbon Dioxide > 40 mmol/L (22-30); Chloride 91 mmol/L (98-107); Estimated CRCL calculation 44 ml/min; Estimated Glomerular Filt Rate > 60; Glucose 101 mg/dL (65-110); Magnesium 1.9 mg/dL (1.6-2.3); Phosphorus 3.3 mg/dL (2.5-4.5); Potassium 4.9 mmol/L (3.4-5.0); Sodium 135 mmol/L (137-145)
[2023-05-14] MEDS: MEGESTROL ACETATE (*CHEMO) 40 MG TABLET PO ×3 (06:49→16:47)
[2023-05-14] MEDS: OPTI-GEN TAB 1 TABLET PO (09:32)
[2023-05-14] MEDS: FENOFIBRATE,MICRONIZED 48 MG TABLET PO (09:32)
[2023-05-14] MEDS: ASPIRIN 81 MG ENTERIC TABLET PO (09:32)
[2023-05-14] MEDS: predniSONE 10 MG TABLET 30 MG PO (09:32)
[2023-05-14] MEDS: MEROPENEM 1 GM/NS 100 ML 1 GM/100 ML BAG IVPB (09:32)
[2023-05-14] MEDS: CLOTRIMAZOLE 10 MG TROC PO ×5 (09:33→21:33)
[2023-05-14] MEDS: FLUTICASONE/SALMETEROL 230-21 MCG INHALER 1 PUFF 2 PUFF INHALATION ×2 (09:49→20:26)
--- NOTE | 2023-05-14 12:56 | PM.PNPUL ---
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 Patient is followed up at the interstitial Lung Disease at [facility]. He presented with increasing shortness of breath and hypercapnic respiratory failure. His respiratory status improved following treatment with a steroids antibiotics and initially noninvasive ventilatory support. Currently he is on chest supplemental oxygen. His respiratory status is back at baseline. Chest imaging studies show advanced pulmonary fibrosis and stable rather small he pneumothorax on left. The patient is awaiting transfer to [facility]. Plan will continue with a current steroid dose. I would discontinue IV meropenem as patient has received treatment for more than a week. (3) Pneumothorax on left: Code(s): J93.9 - Pneumothorax, unspecified Status: Acute (4) Chronic hypoxemic respiratory failure: Code(s): J96.11 - Chronic respiratory failure with hypoxia Status: Acute Subjective Date/time seen: 05/14/23 12:56 Interval history: Patient has had no new respiratory symptoms. He presented with hypercapnic respiratory failure. He has got advanced pulmonary fibrosis and and has been on antifibrotic agents. Patient is followed up at the interstitial Lung Disease at [facility]. Initial workup during this hospitalization showed new small pneumothorax on left which has been essentially unchanged since admission to the hospital. Patient has been on steroids for possible cluster patient of his underlying pulmonary fibrosis and also on antibiotics. He has been on meropenem IV. No sputum cultures available. Patient has been waiting transfer to [facility]. Review of Systems Review of Systems: All systems reviewed & are unremarkable except as noted in HPI and below Exam Narrative: GEN: The patient is alert, oriented, and not displaying signs of distress. The patient is thin and is on 2 L/min of oxygen. HEENT: The patient has equal pupils, extra ocular movements intact, and a symmetrical face. The oral membranes are moist. NECK: The trachea is aligned in the midline. CHEST: There is equal air entry with symmetric excursion and crackles are present at both bases. No subcutaneous air is observed. CV: The heart sounds S1 and S2 are regular with no murmurs, gallops, or rubs. ABD: Positive bowel sounds are noted and the abdomen is soft and non-tender. Extremities: There is mild clubbing; no cyanosis, or edema present. Neuro exam patient is alert oriented, normal affect. Objective Data Vital Signs Vital Signs: Vital Signs - 24 hr 05/13/23 13:10 05/13/23 15:18 05/13/23 14:00 Temperature 37.2 C Pulse Rate 90 112 H Respiratory Rate 16 Blood Pressure 152/77 H Pulse Oximetry 98 Oxygen Delivery Nasal Cannula Oxygen Flow Rate 3 05/13/23 16:00 05/13/23 18:00 05/13/23 16:00 Temperature Pulse Rate 111 H 108 H Respiratory Rate Blood Pressure Pulse Oximetry 98 Oxygen Delivery Nasal Cannula Oxygen Flow Rate 2 05/13/23 20:08 05/13/23 20:00 05/13/23 20:34 Temperature 36.9 C Pulse Rate 94 115 H Respiratory Rate 18 16 Blood Pressure 145/67 H Pulse Oximetry 96 96 Oxygen Delivery Nasal Cannula Oxygen Flow Rate 2 05/14/23 00:00 05/13/23 21:00 05/14/23 00:00 Temperature 37.1 C Pulse Rate 107 H Respiratory Rate 16 Blood Pressure 140/63 Pulse Oximetry 100 96 100 Oxygen Delivery Nasal Cannula Nasal Cannula Oxygen Flow Rate 2 2 05/13/23 20:00 05/13/23 22:00 05/14/23 00:00 Temp
--- NOTE | 2023-05-14 13:11 | PM.IMPN ---
Progress Note: A&P Assessment and Plan (1) Acute hypercapnic respiratory failure: Code(s): J96.02 - Acute respiratory failure with hypercapnia Status: Acute (2) CO2 narcosis: Code(s): R06.89 - Other abnormalities of breathing Status: Acute (3) Pneumothorax on left: Code(s): J93.9 - Pneumothorax, unspecified Status: Acute (4) Chronic hypoxemic respiratory failure: Code(s): J96.11 - Chronic respiratory failure with hypoxia Status: Acute Plan 77M w/ PMH CAD s/p CABG on 12/10/22 w/ evidence of OM graft occlusion in 2016 denies further treatment, bioprosthetic aortic valve replacement, HLD, HTN, prediabetes, interstitial lung disease w/ IUP pattern w/ chronic hypoxic respiratory failure on 2-3L at home continuous, presents with altered mental status. He lives with . He has been declining for approx 6 months, becoming more weak, losing weight, and having to increase his o2 to 5L on exertion. On the days leading up to admission, the noticed the patient becoming very somnolent. In the ED he was found to have a partial pressure of CO2 of 116.5. BIPAP placed with settings of 12/6 and rate of 4, patient's AMS resolved and repeat VBG revealed PCO2 of 92.9. Admitted on 05/05/23.Chest x-ray with new small left pneumothorax.? Severe chronic interstitial lung disease cannot exclude acute superimposed pneumonia. 1.Acute hypoxic hypercapnic on chronic hypoxic respiratory failure, pneumothorax, exacerbation of interstitial pulmonary disease Continue with O2 support Appreciate Pulmonary help Await transfer to [facility] Chest imaging studies show advanced pulmonary fibrosis and stable rather small he pneumothorax on left. Continue with prednisone Will discontinue meropenam after 7 days Continue with Symbicort 2.Severe Protein Calorie malnutrition Due to Chronic illness 3. Code Status: Full 4. DVT ppx:Hep SQ 5. Dispo: await transfer to [facility]? Time Spent With Patient Time with patient: 15 - 25 minutes Subjective Date/time seen: 05/14/23 13:11 Interval history: No acute events overnight, awaiting transfer to [facility] Review of Systems Review of Systems: All systems reviewed & are unremarkable except as noted in HPI and below (HPI) Exam Narrative: GENERAL: chronically ill appearing, mal-nourished, on supplemental oxygenation EYES: PERRLA and EOMI. ENT: Nares clear.? Mucous membranes moist. NECK: Supple. CHEST: Coarse breath sound bilaterally no respiratory distress.? On nasal cannula HEART: Mildly tachycardic rate and regular rhythm.? Normal peripheral pulses. ABDOMEN: Soft, nontender, nondistended. EXTREMITIES: Normal range of motion.? No edema. SKIN: Warm, dry, no rash. NEURO: No focal deficits.? Alert and oriented x3. PSYCH: Normal mood and affect. Objective Data Vital Signs Vital Signs: Vital Signs - 24 hr 05/13/23 15:18 05/13/23 14:00 05/13/23 16:00 Temperature 99.0 F Pulse Rate 90 112 H 111 H Respiratory Rate 16 Blood Pressure 152/77 H Pulse Oximetry 98 Oxygen Delivery Oxygen Flow Rate 05/13/23 18:00 05/13/23 16:00 05/13/23 20:08 Temperature Pulse Rate 108 H 94 Respiratory Rate 18 Blood Pressure Pulse Oximetry 98 Oxygen Delivery Nasal Cannula Oxygen Flow Rate 2 05/13/23 20:00 05/13/23 20:34 05/14/23 00:00 Temperature 98.5 F 98.8 F Pulse Rate 115 H 107 H Respiratory Rate 16 16 Blood Pressure 145/67 H 140/63 Pulse Oximetry 96 96 100 Oxygen Delivery Nasal Cannula Oxygen Flow Rate 2 05/13/23 21:00 05/14/23 00:00 05/13/23 20:00 Temperature Pulse Rate 113 H Respiratory Rate Blood Pressure Pulse Oximetry 96 100 Oxygen Delivery Nasal Cannula Nasal Cannula Oxygen Flow Rate 2 2 05/13/23 22:00 05/14/23 00:00 05/14/23 02:00 Temperature Pulse Rate 114 H 111 H 98 Respiratory Rate Blood Pressure Pulse Oximetry Oxygen Delivery Oxygen Flow Rate 05/14/23 04:00 05/14/23 08:
[2023-05-14] MEDS: HEPARIN SODIUM 5,000 UNITS/ML VIAL 5000 UNITS SUB-Q ×2 (13:30→21:32)
[2023-05-14] MEDS: MELATONIN 5 MG TABLET PO (21:33)
[2023-05-15] VITALS (13 sets, daily range): BP systolic 128–140; BP diastolic 64–79; PULSE 102–119; RESP 16–28; TEMP 36.5–37.3; O2SAT 95–100
[2023-05-15 05:33] LABS: Basophils Percent Auto 0.1 % (0.2-1.2); Eosinophils Absolute Auto 0.1 K/mm3 (0-0.3); Eosinophils Percent Auto 0.7 % (0-4.4); Hematocrit 30.3 % (42.0-52.0); Hemoglobin 8.9 g/dL (14.0-18.0); Immature Granulocyte Absolute 0.08 K/mm3 (0.00-0.031); Immature Granulocyte Percent A 0.7 % (0-0.5); Lymphocytes Absolute Auto 1.33 K/mm3 (0.9-3.2); Lymphocytes Percent Auto 12.2 % (18.3-44.2); Mean Corpuscular HGB Conc 29.4 g/dl (32-36); Mean Corpuscular Hemoglobin 30.8 pg (26-34); Mean Corpuscular Volume 104.8 fl (80-100); Mean Platelet Volume 8.8 fl (7.4-10.4); Monocytes Percent Auto 9.2 % (2.6-8.5); Neutrophils Absolute Auto 8.4 K/mm3 (1.3-6.7); Neutrophils Percent Auto 77.1 % (45.5-73.1); Platelet Count Result 261 k/mm3 (150-375); Red Blood Count 2.89 M/mm3 (4.6-6.20); Red Cell Distribution Width 12.5 % (11.5-14.5); White Blood Count 10.9 K/mm3 (4.5-10.0)
[2023-05-15] MEDS: MEGESTROL ACETATE (*CHEMO) 40 MG TABLET PO ×3 (06:20→16:50)
[2023-05-15] MEDS: HEPARIN SODIUM 5,000 UNITS/ML VIAL 5000 UNITS SUB-Q ×2 (06:20→14:26)
[2023-05-15] MEDS: OPTI-GEN TAB 1 TABLET PO (08:47)
[2023-05-15] MEDS: CLOTRIMAZOLE 10 MG TROC PO ×4 (08:47→16:50)
[2023-05-15] MEDS: FENOFIBRATE,MICRONIZED 48 MG TABLET PO (08:47)
[2023-05-15] MEDS: ASPIRIN 81 MG ENTERIC TABLET PO (08:47)
[2023-05-15] MEDS: predniSONE 10 MG TABLET 30 MG PO (08:47)
--- NOTE | 2023-05-15 09:31 | PM.IMPN ---
Progress Note: A&P Assessment and Plan (1) Acute hypercapnic respiratory failure: Code(s): J96.02 - Acute respiratory failure with hypercapnia Status: Acute (2) CO2 narcosis: Code(s): R06.89 - Other abnormalities of breathing Status: Acute (3) Pneumothorax on left: Code(s): J93.9 - Pneumothorax, unspecified Status: Acute (4) Chronic hypoxemic respiratory failure: Code(s): J96.11 - Chronic respiratory failure with hypoxia Status: Acute Plan 77M w/ PMH CAD s/p CABG on 12/10/22 w/ evidence of OM graft occlusion in 2016 denies further treatment, bioprosthetic aortic valve replacement, HLD, HTN, prediabetes, interstitial lung disease w/ IUP pattern w/ chronic hypoxic respiratory failure on 2-3L at home continuous, presents with altered mental status. He lives with . He has been declining for approx 6 months, becoming more weak, losing weight, and having to increase his o2 to 5L on exertion. On the days leading up to admission, the noticed the patient becoming very somnolent. In the ED he was found to have a partial pressure of CO2 of 116.5. BIPAP placed with settings of 12/6 and rate of 4, patient's AMS resolved and repeat VBG revealed PCO2 of 92.9. Admitted on 05/05/23.Chest x-ray with new small left pneumothorax.? Severe chronic interstitial lung disease cannot exclude acute superimposed pneumonia. 1.Acute hypoxic hypercapnic on chronic hypoxic respiratory failure, pneumothorax, exacerbation of interstitial pulmonary disease Continue with O2 support Appreciate Pulmonary help Await transfer to [facility] Chest imaging studies show advanced pulmonary fibrosis and stable rather small stable pneumothorax on left. Continue with prednisone Will discontinue meropenem after 7 days Continue with Symbicort 2.Severe Protein Calorie malnutrition Due to Chronic illness 3. Code Status: Full 4. DVT ppx:Hep SQ 5. Dispo: await transfer to [facility], patient moving up the Routine Transfer list but still no ETA on bed availability? Time Spent With Patient Time: Inclusive of time spent in consultation with [facility] Transfer Line and Dr. Marx with Pulmonology at [place] Time with patient: Greater than 35 minutes Subjective Date/time seen: 05/15/23 09:31 Interval history: Spoke with [facility] Transfer Center and spoke with Dr. Marx with Pulmonology who states we are doing proper care for patient and she will be happy to see him when he can get transfer or we can try to discharge patient with escalated oxygen flow with activity and prompt outpatient follow up. Transfer Center states we are moving up the list and nearing the top of the Routine Priority list but still no estimate on when transfer bed will be available. Review of Systems Review of Systems: anxious, low sats on activity like transfer to chair from bed All systems reviewed & are unremarkable except as noted in HPI and below Exam Narrative: GENERAL: chronically ill appearing, malnourished, on supplemental oxygenation EYES: PERRLA and EOMI. ENT: Nares clear.? Mucous membranes moist. NECK: Supple. CHEST: Coarse breath sound bilaterally no respiratory distress.? On nasal cannula HEART: Mildly tachycardic rate and regular rhythm.? Normal peripheral pulses. Sinus tach rate 115 on telemetry per my interpretation ABDOMEN: Soft, nontender, nondistended. EXTREMITIES: Normal range of motion.? No edema. SKIN: Warm, dry, no rash. NEURO: No focal deficits.? Alert and oriented x3. PSYCH: Normal mood and anxious affect. Objective Data Vital Signs Vital Signs: Vital Signs - 24 hr 05/14/23 09:50 05/14/23 09:51 05/14/23 11:48 Temperature 36.4 C L Pulse Rate 100 102 H Respiratory Rate 18 22 H Blood Pressure 120/61 Pulse Oximetry 94 100 Oxygen Delivery Nasal Cannula Oxygen Flow Rate 2 05/14/23 12:00 05/14/23 10:00 05/14/23 12:00 Temperature Pulse Rate 104 H 121 H Respiratory Rate Blood Pressure Pulse Oximet
[2023-05-15] MEDS: FLUTICASONE/SALMETEROL 230-21 MCG INHALER 1 PUFF 2 PUFF INHALATION (09:53)
--- NOTE | 2023-05-15 09:56 | PM.PNPUL ---
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 Patient is followed up in the interstitial Lung Disease clinic at [facility]. He presented with increasing shortness of breath and hypercapnic respiratory failure. His respiratory status improved following treatment with steroids antibiotics and initially noninvasive ventilatory support. Currently he is on just supplemental oxygen. His respiratory status is back at baseline. Chest imaging studies show advanced pulmonary fibrosis and stable small pneumothorax on left. The patient is awaiting transfer to [facility]. Plan: will decrease steroid dose to prednisone 20 mg daily. Otherwise continue with supportive treatment. (3) Pneumothorax on left: Code(s): J93.9 - Pneumothorax, unspecified Status: Acute (4) Chronic hypoxemic respiratory failure: Code(s): J96.11 - Chronic respiratory failure with hypoxia Status: Acute Subjective Date/time seen: 05/15/23 09:56 Interval history: Patient reports no new respiratory symptoms. He did not sleep well last night. Currently sitting in chair. No fever. Shortness of breath unchanged Review of Systems Review of Systems: All systems reviewed & are unremarkable except as noted in HPI and below Exam Narrative: GEN: The patient is alert, oriented, and not displaying signs of distress. The patient is thin and is on 2 L/min of oxygen. HEENT: The patient has equal pupils, extra ocular movements intact, and a symmetrical face. The oral membranes are moist. NECK: The trachea is aligned in the midline. CHEST: There is equal air entry with symmetric excursion and crackles are present at both bases. No subcutaneous air is observed. CV: The heart sounds S1 and S2 are regular with no murmurs, gallops, or rubs. ABD: Positive bowel sounds are noted and the abdomen is soft and non-tender. Extremities: There is mild clubbing; no cyanosis, or edema present. Neuro exam patient is alert oriented, normal affect. Objective Data Vital Signs Vital Signs: Vital Signs - 24 hr 05/14/23 11:48 05/14/23 12:00 05/14/23 10:00 Temperature 36.4 C L Pulse Rate 102 H 104 H Respiratory Rate 22 H Blood Pressure 120/61 Pulse Oximetry 100 100 Oxygen Delivery Nasal Cannula Oxygen Flow Rate 2 Fraction of Inspired Oxygen 05/14/23 12:00 05/14/23 14:00 05/14/23 16:00 Temperature 36.6 C Pulse Rate 121 H 111 H 103 H Respiratory Rate 28 H Blood Pressure 125/64 Pulse Oximetry 10 L Oxygen Delivery Oxygen Flow Rate Fraction of Inspired Oxygen 05/14/23 16:00 05/14/23 16:00 05/14/23 18:00 Temperature Pulse Rate 103 H 108 H Respiratory Rate Blood Pressure Pulse Oximetry 100 Oxygen Delivery Nasal Cannula Oxygen Flow Rate 2 Fraction of Inspired Oxygen 05/14/23 20:00 05/14/23 20:00 05/15/23 00:00 Temperature 36.9 C Pulse Rate 107 H 107 H 108 H Respiratory Rate 28 H 28 H 28 H Blood Pressure 159/94 H Pulse Oximetry 99 99 98 Oxygen Delivery Nasal Cannula Nasal Cannula Oxygen Flow Rate 2 2 Fraction of Inspired Oxygen 05/15/23 00:00 05/14/23 20:00 05/14/23 22:00 Temperature 36.5 C Pulse Rate 108 H 109 H 111 H Respiratory Rate 28 H Blood Pressure 132/64 Pulse Oximetry 98 Oxygen Delivery Oxygen Flow Rate Fraction of Inspired Oxygen 05/15/23 00:00 05/15/23 02:00 05/15/23 04:00 Temperature Pulse Rate 110 H 108 H 113 H Respiratory Rate Blood Pressure Pulse Oximetry Oxygen Deli
--- NOTE | 2023-05-15 11:42 | PCNFU ---
Nutrition Follow-Up Complete: Severe Protein Malnutrition related to inadequate protein-energy intake with increased protein-energy needs in setting of chronic diease or condition(interstitual lung disease) as evidenced by minimal oral intake for > 1-2 months: moderate subcutaenous fat loss (orbital fat pads) and moderate muscle wasting (deltoids). Goal: Adequate Intake of at least 75% of meals/supplements - Goal is being met Pt current nutrition is Regular diet. Ensure Enlive BID for additional 350 kcal and 20 g protein each. Nutrition recommendation: Continue with current nutrition care plan and orders. Agree with orders Last recorded weight is 47.6 kg. Bowel Motility: Last BM +1 05/13/23 Labs Reviewed: Hgb 8.9, Hct 30.3, Alb 2.9, Na 135, BUN 24 Meds Noted: Megace, prednisone Skin: No pressure injuries Additional Notes: Intakes are good on regular diet, 75-100%. Says appetite is good. Awaiting transfer to [facility]. RD will monitor weight, labs, skin, oral intake every 5 days.
[2023-05-15 16:38] LABS: Blood Urea Nitrogen 21 mg/dL (9-20); Calcium 8.6 mg/dL (8.4-10.2); Carbon Dioxide > 40 mmol/L (22-30); Chloride 92 mmol/L (98-107); Estimated CRCL calculation 51 ml/min; Estimated Glomerular Filt Rate > 60; Glucose 184 mg/dL (65-110); Potassium 5.3 mmol/L (3.4-5.0); Sodium 134 mmol/L (137-145)
--- NOTE | 2023-05-15 19:29 | PM.TDS ---
Transfer Discharge Sum: Prov Provider Date of admission: 05/04/23 20:42 Primary care physician: Mary Barger MD Admitting clinician: Marisol Frazier MD Consults: 05/04/23 Consult to Physician Routine Comment: Consulting Provider: Kimi Marino call center trainer/MD group to consult: Ned Reason for consultation: pneumothorax Has provider been notified: Yes 05/07/23 Consult to Physician Routine Comment: Spoke with Dr. Diaz @ [phone]) Consulting Provider: Elder Diaz call center trainer/MD group to consult: pulmonlogy Reason for consultation: interstitial lung disease. Has provider been notified: Yes Discharging clinician: Claudio Sigala Anticipated date of transfer: 05/10/23 Receiving physician/facility: [facility] DS: Admitting Diagnosis Discharge Date 05/15/23 Admitting Diagnosis acute hypercapnic respiratory failure, CO2 narcosis, pneumothorax on left, chronic hypoxemic respiratory failure DS: Discharge Diagnosis Discharge Diagnosis (1) Acute hypercapnic respiratory failure: Code(s): J96.02 - Acute respiratory failure with hypercapnia Status: Acute (2) CO2 narcosis: Code(s): R06.89 - Other abnormalities of breathing Status: Acute (3) Pneumothorax on left: Code(s): J93.9 - Pneumothorax, unspecified Status: Acute (4) Chronic hypoxemic respiratory failure: Code(s): J96.11 - Chronic respiratory failure with hypoxia Status: Acute Transfer Discharge Sum: Med Medications Active and Home Medications: Home Medications aspirin 81 mg tablet,delayed release 81 mg PO DAILY 04/18/19 [History Confirmed 05/05/23] coenzyme Q10 100 mg capsule (CoQ-10) 100 mg PO DAILY 04/18/19 [History Confirmed 05/05/23] krill [id number]-vnc-astax 1,500 mg-165 mg-67.5 mg capsule (Krill Oil (Meridian 3 and 6)) 1 cap PO DAILY 04/18/19 [History Confirmed 05/05/23] turmeric 400 mg capsule 400 mg PO DAILY 04/18/19 [History Confirmed 05/05/23] berberine-herbal comb no.18 capsule 1 cap PO DAILY 04/21/19 [History Confirmed 05/05/23] ajvazvyj-wc-bypyo 300 mcg-K 60 mcg-lycop 600 mcg-lutein 300 mcg tablet (Centrum Silver Men) 1 tablet PO DAILY 01/29/20 [History Confirmed 05/05/23] alirocumab 75 mg/mL subcutaneous pen injector (Praluent Pen) 75 mg subcut Q14D 01/05/21 [History Confirmed 05/05/23] fenofibrate 54 mg tablet 54 mg PO DAILY 01/05/21 [History Confirmed 05/05/23] blood sugar diagnostic (Accu-Chek SmartView Test Strips) #100 ea 06/28/22 [Rx Confirmed 05/05/23] megestrol 40 mg tablet 40 mg PO TID for appetite #90 tabs 01/11/23 [Rx Confirmed 05/05/23] eszopiclone 2 mg tablet (Lunesta) 2 mg PO QHS PRN insomnia 05/05/23 [History Confirmed 05/05/23] fluticasone 500 mcg-salmeterol 50 mcg/dose blistr powdr for inhalation (Advair Diskus) 1 inh inhalation BID PRN Shortness Of Breath Or Wheezing 05/05/23 [History Confirmed 05/05/23] pirfenidone 801 mg tablet (Esbriet) 267 mg PO DAILY 05/05/23 [History Confirmed 05/05/23] Transfer Discharge Sum: Hosp Hospital Course Hospital course: Rasta Capps is a 77 year old male admitted for respiratory failure with hypercapnia and hypoxia with small pneumothorax on the left. Patient has end-stage pulmonary fibrosis. Patient initially in the ICU on BiPAP. He was followed by pulmonology throughout the stay. Transfer was initiated to [facility] on 05/07 at which time patient was supposed to go to an ICU. He while awaiting bed at [facility] he stabilized to the point that he could come out to the IMU. For the last several days prior to transfer he was on 3 L nasal cannula still desaturating whenever moving from bed to the chair or any activity. Patient and his very anxious about getting accepted to [facility] to see if there was anything else that can be done about his chronic fibrosis or if any intervention needed to be done on the stable likely loculated pneumothorax. Condition on Transfer: Guarded Time Spent with Patient Time at
== END 2023-05-15 18:41 | disposition short-term general hospital (02) | DRG 196 ==
LOC: ANHED 21:48 → ANHIMU 23:26
PROVIDERS: Emergency Medicine; Internal Medicine; Internal Medicine Pulmonary Disease; Admitting Provider General Practice; Emergency Provider Student in an Organized Health Care Education/Training Program; PCP Family Medicine; Visit Provider Nurse Practitioner
DX: J84.112 Idiopathic pulmonary fibrosis (principal); E43 Unspecified severe protein-calorie malnutrition; J96.21 Acute and chronic respiratory failure with hypoxia; J96.22 Acute and chronic respiratory failure with hypercapnia; J93.83 Other pneumothorax; I25.810 Atherosclerosis of coronary artery bypass graft(s) without angina pectoris; Z68.1 Body mass index [BMI] 19.9 or less, adult; E78.5 Hyperlipidemia, unspecified; Z79.01 Long term (current) use of anticoagulants; Z95.1 Presence of aortocoronary bypass graft; Z99.81 Dependence on supplemental oxygen; Z95.2 Presence of prosthetic heart valve; Z20.822 Contact with and (suspected) exposure to COVID-19
CPT/HCPCS: 36415; 36600; 70450; 71045; 71046; 71250; 80048; 80053; 80202; 81001; 82375; 82803; 82805; 83050; 83735; 83880; 84100; 84145; 84439; 84443; 84484; 85025; 85027; 85610; 85730; 87633; 87637; 87641; 93005; 93306; 94002; 94003; 94640; 96375; 97110; 97161; 97165; 97530; 97535; 99285; A9270; J1644; J2185; J2920; J2930; J3370; J7512

== ENCOUNTER 2023-07-28 18:21 | Inpatient (IN) | payer MEDICARE, SELFPAY ==
[2023-07-28] VITALS (43 sets, daily range): BP systolic 86–162; BP diastolic 52–84; PULSE 76–108; RESP 16–33; TEMP 36.7; O2SAT 74–100
--- NOTE | ~2023-07-28 | XR_ITS ---
XR abdomen gastric tube insert 07/29/2023 01:30 Indication: Check NG tube placement Procedure: AP portable chest Comparison: No prior studies for comparison. Findings: NG tube in the stomach. Nonobstructive bowel pattern. Diffuse bilateral airspace disease wh ich may represent edema or pneumonia. Impression: 1: NG tube in the stomach. Reviewed, dictated and finalized at location A. Impression: 1: NG tube in the stomach.
--- NOTE | ~2023-07-28 | CT_ITS ---
EXAMINATION: CT brain wo con DATE: 07/28/2023 22:08 INDICATION: Mental status changes TECHNIQUE: Computed tomography (CT) of the head was performed without intravenous contrast. The dose- length product was 832.33 mGy-cm. Automated exposure control and iterative reconstruction technique w ere employed. COMPARISON: CT dated 05/04/2023 FINDINGS: Generalized atrophy. There are scattered mild periventricular and subcortical white matter changes, most likely related to small vessel ischemic disease (microangiopathy). There is intracrania l atherosclerosis. No acute intracranial hemorrhage, infarction, mass or mass effect. There is mild m ucosal thickening of the ethmoid sinuses. Mastoids are pneumatized. No depressed skull fractures. IMPRESSION: 1. No acute intracranial abnormality. Reviewed, dictated and finalized at location A.
--- NOTE | ~2023-07-28 | XR_ITS ---
EXAMINATION: XR chest ET placement Exam Date/Time: 07/28/2023 19:21 CDT HISTORY: POST INTUBATION Comparison: 05/11/2023. RESULT: Lines, tubes, and devices: Cardiac valve replacement. Intact sternotomy wire. Abandoned pacing wires . Surgical clips over the GE junction. Lungs and pleura: Increasing diffuse reticular opacities and patchy groundglass opacities, overlying chronic severe emphysematous/interstitial change. Left pleural fluid, increased since the prior stud y. Cardiomediastinal silhouette: Stable. Other: No acute osseous or upper abdominal finding. IMPRESSION: Endotracheal tube terminates 4.9 cm above the sylvain. Pulmonary opacities may represent pulmonary edema overlying chronic emphysematous/interstitial change . Slightly increasing small left pleural effusion. Reviewed, dictated and finalized at [facility]. IMPRESSION: Endotracheal tube terminates 4.9 cm above the sylvain. Pulmonary opacities may represent pulmonary edema overlying chronic emphysemato us/interstitial change. Slightly increasing small left pleural effusion.
--- NOTE | 2023-07-28 18:43 | ECG_ITS ---
Measurements Intervals Peck Rate: 97 P: 32 NE: 120 QRS: -31 QRSD: 87 T: 122 QT: 328 QTc: 417 Interpretive Statements SINUS RHYTHM LEFT AXIS DEVIATION LEFT VENTRICULAR HYPERTROPHY AND ST-T CHANGE BASELINE ARTIFACT- I, II, III, AVR, V5-V6 BORDERLINE ECG COMPARED TO ECG 05/04/2023 18:43:53 LEFT-AXIS DEVIATION NOW PRESENT Electronically Signed On 07-28-2023 19:18:44 CDT by Gomez Soto D.O.
[2023-07-28 18:44] LABS: Alveolar/Arterial O2 Gradient < 0.0 mmHg; Base Excess ABG 23.2 mEq/l (+/-2.0); Carboxyhemoglobin 0.9 % THb (0-2.0); Fractional Inspired Oxygen 40 %; HCO3 ABG 57.4 mEq/l (22.0-26.0); Methemoglobin ABG 0.3 %THb (0-1.5); Oxygen Content ABG 15.4 %vol (16.0-22.0); Oxygen Saturation ABG 98.8 % (95.0-100.0); Oxyhemoglobin 97.4 % THb (90.0-100.0); PO2 ABG 197.1 mmHg (80.0-100.0); PO2 FiO2 Ratio Arterial Blood 4.93 %; Reduced Hemoglobin 1.4 %THb (0-5.0); Total Hemoglobin 10.9 g/dL (12.0-18.0)
[2023-07-28 18:45] LABS: Device NASAL CANNULA; Modified Allen's Test Pass; PCO2 ABG 159.2 mmHg (35.0-45.0); Site Drawn RIGHT RADIAL; pH ABG 7.175 (7.350-7.450)
--- NOTE | 2023-07-28 18:50 | ED.AMS ---
HPI - Altered Mental Status General Chief Complaint: Altered Mental Status <[facility] MD - Last Filed: 07/28/23 19:16> Stated Complaint: altered mental status <[facility] MD - Last Filed: 07/28/23 19:16> Time Seen by Provider: 07/28/23 18:[address] <[address] MD - Last Filed: 07/28/23 19:16> Source: family and EMS <[facility] MD - Last Filed: 07/28/23 19:16> Mode of arrival: EMS <[facility] MD - Last Filed: 07/28/23 19:16> Limitations: altered mental status <[facility] MD - Last Filed: 07/28/23 19:16> History of Present Illness HPI narrative: A 77-year-old with a history of pulmonary fibrosis, diabetes was brought in by EMS from home in unresponsive state. Upon arrival patient is unresponsive and shallow breathing. <[facility] MD - Last Filed: 07/28/23 19:16> MD complaint: altered mental status and decreased responsiveness <[facility] MD - Last Filed: 07/28/23 19:16> Related Data Home Medications: Home Medications Medication Instructions Recorded Confirmed aspirin 81 mg tablet,delayed 81 mg PO DAILY 04/18/19 07/29/23 release coenzyme Q10 100 mg capsule 100 mg PO DAILY 04/18/19 07/29/23 (CoQ-10) turmeric 400 mg capsule 400 mg PO DAILY 04/18/19 07/29/23 bcdvavqo-ef-ukmwq 300 mcg-K 60 1 tablet PO DAILY 01/29/20 07/29/23 mcg-lycop 600 mcg-lutein 300 mcg tablet (Centrum Silver Men) fenofibrate 54 mg tablet 54 mg PO DAILY 01/05/21 07/29/23 fluticasone 500 mcg-salmeterol 50 1 inh inhalation BID PRN Shortness 05/05/23 07/29/23 mcg/dose blistr powdr for Of Breath Or Wheezing inhalation (Advair Diskus) <[facility] MD - Last Filed: 07/28/23 19:16> Allergies/Adverse Reactions: Allergies Allergy/AdvReac Type Severity Reaction Status Date / Time bee pollen Allergy Unknown unknown Verified 02/28/23 14:27 poison penelope extract Allergy Rash Verified 02/28/23 14:[address] <[address] MD - Last Filed: 07/28/23 19:16> Review of Systems Review of Systems: ROS unobtainable: Yes unobtainable due to medical condition <[facility] MD - Last Filed: 07/28/23 19:16> [facility] Past Medical History Medical History: Medical History (Updated 07/29/23 @ 07:01 by Christopher Liz MD) Chronic hypoxic respiratory failure Chronic interstitial lung disease Coronary artery disease History of colon polyps Idiopathic pulmonary fibrosis Latent tuberculosis Mild intermittent asthma without complication Type 2 diabetes mellitus <[address] [facility] MD - Last Filed: 07/28/23 19:16> Surgical History Surgical History: Surgical History (Updated 07/28/23 @ 22:58 by Brooke Thrasher PA-C) History of aortic valve replacement (2011) History of colonoscopy with polypectomy History of coronary artery bypass graft (2011) <[facility] MD - Last Filed: 07/28/23 19:16> Family History Family History: Family History Mother Family history of respiratory disorder, Onset Age: 82 Cerebrovascular accident Diabetes mellitus Hypertension Father Family history of alcoholism <[facility] MD - Last Filed: 07/28/23 19:16> Social History Social History: Social History (Updated 07/28/23 @ 22:59 by Brooke Thrasher PA-C) Social History: Surrogate medical decision maker: Nancy Capps, spouse. Code status: Do not resuscitate. Smoking status: Never smoker Second hand tobacco smoke exposure: No Alcohol intake: never Substance use: never Substance use type: does not use Lack of Transportation: No Lack of Food: Never True Current Housing: I Have Housing Concerned About Future Housing: No Difficulty Paying Gas/Electric Bills: No Difficulty Paying for Meds: No Currently Unemployed: No Education: Master's Degree or Higher Difficulty w/ Childcare or Family Care: No Living arrangements: with family Additional living arrangem
[2023-07-28 18:51] LABS: Glucose Point of Care 84 mg/dl (65-105)
--- NOTE | 2023-07-28 19:02 | PC.NURSE ---
1900 10mg f Etomidate and 60 of Succ given per verbal order by EDP. Pt intubated with size 7 tube and 22 at the lip.
[2023-07-28 19:06] LABS: Basophils Absolute Auto 0.1 K/mm3 (0.0-0.1); Basophils Percent Auto 0.6 % (0.2-1.2); Eosinophils Percent Auto 0.1 % (0-4.4); Hematocrit 33.5 % (42.0-52.0); Hemoglobin 9.5 g/dL (14.0-18.0); Immature Granulocyte Absolute 0.04 K/mm3 (0.00-0.031); Immature Granulocyte Percent A 0.4 % (0-0.5); Lymphocytes Absolute Auto 1.33 K/mm3 (0.9-3.2); Lymphocytes Percent Auto 14.9 % (18.3-44.2); Mean Corpuscular HGB Conc 28.4 g/dl (32-36); Mean Corpuscular Hemoglobin 30.2 pg (26-34); Mean Corpuscular Volume 106.3 fl (80-100); Mean Platelet Volume 9.1 fl (7.4-10.4); Monocytes Absolute Auto 0.8 K/mm3 (0.1-0.6); Monocytes Percent Auto 9.4 % (2.6-8.5); Neutrophils Absolute Auto 6.6 K/mm3 (1.3-6.7); Neutrophils Percent Auto 74.6 % (45.5-73.1); Platelet Count Result 162 k/mm3 (150-375); Red Blood Count 3.15 M/mm3 (4.6-6.20); Red Cell Distribution Width 12.2 % (11.5-14.5); White Blood Count 8.9 K/mm3 (4.5-10.0)
--- NOTE | 2023-07-28 19:08 | PC.NURSE ---
Bilateral breath sounds present.
[2023-07-28 19:23] LABS: Prothrombin Time 13.9 Seconds (11.1-14.7)
[2023-07-28] MEDS: FENTANYL 2,500MCG/NS250ML(*CRX 2,500 MCG/250 ML BAG IV CONT (19:26)
[2023-07-28 19:27] LABS: Hypochromasia 1+; Platelet Estimate Slightly Decreased (Adequate); Schistocytes None Seen; Stomatocytes 1+
[2023-07-28] MEDS: DEXTROSE 10% 1,000 ML 50 ML IV CONT (19:41)
[2023-07-28 19:43] LABS: Alanine Aminotransferase 19 U/L (6-50); Albumin Level 3.7 g/dL (3.5-5.1); Alkaline Phosphatase 45 U/L (38-126); Aspartate Amino Transferase 45 U/L (17-59); Bilirubin,Total 0.4 mg/dL (0.2-1.3); Blood Urea Nitrogen 39 mg/dL (9-20); Calcium 9.4 mg/dL (8.4-10.2); Carbon Dioxide > 40 mmol/L (22-30); Chloride 86 mmol/L (98-107); Estimated CRCL calculation 39 ml/min; Estimated Glomerular Filt Rate > 60; Glucose 90 mg/dL (65-110); Potassium 4.8 mmol/L (3.4-5.0); Sodium 139 mmol/L (137-145); Troponin I 0.259 ng/mL (0.000-0.034)
--- NOTE | 2023-07-28 20:03 | PM.IMHP ---
H&P: HPI History of Present Illness Date/Time: 07/28/23 20:15 Chief Complaint: Unresponsive. Narrative: This is a 77-year-old male with interstitial lung disease with CT scan consistent with UIP, chronic hypoxic respiratory failure on home O2, hypertension, hyperlipidemia, coronary artery disease with history of CABG, and type 2 diabetes mellitus who presented to the emergency department via EMS from home for evaluation of unresponsiveness. He is currently sedated and on mechanical ventilation and thus all of the following is obtained via a review of his EMR as well as information provided by his family members. He was admitted to the hospital at the end of April 2023 with acute hypercapnic respiratory failure requiring intubation and he was ultimately transferred to [place] for consultation with his short story writer. He has progressively gone downhill in the last several weeks. His appetite is poor. He is using a bedside commode and does not do much activity. However physical therapy is coming to the home and he is ambulating down the vazquez with them but according to his he has to stop frequently to catch his breath. He is supposed to use APAP with sleeping but he does not seem to tolerate that well. He has periods of confusion which have been increasingly worse the last several days. Today he was minimally responsive and they put him on APAP without improvement and EMS was summoned. ABG on arrival showed a pH of 7.175, pCO2 of 159.2, bicarb 57.4. Family members gave consent for intubation. He has been afebrile and blood pressures are stable. Labs are pretty consistent with his baseline. Initial troponin was elevated 0.259. Chest x-ray showed pulmonary opacities which could represent pulmonary edema overlying chronic emphysematous/interstitial change and slightly increasing, small left pleural effusion. After several discussions with the patient's family, they are interested in hospice care and would like to discuss that tomorrow. In the interim he will be admitted to the ICU overnight however they reiterate his DNR status and they would not want him to be resuscitated if anything were to happen overnight. Review of Systems Review of Systems: Unable to obtain given clinical condition. [facility] Past Medical History Medical History (Updated 07/28/23 @ 23:02 by Brooke Thrasher PA-C) Chronic hypoxic respiratory failure Chronic interstitial lung disease Coronary artery disease History of colon polyps Idiopathic pulmonary fibrosis Latent tuberculosis Mild intermittent asthma without complication Type 2 diabetes mellitus Surgical History Surgical History (Updated 07/28/23 @ 22:58 by Brooke Thrasher PA-C) History of aortic valve replacement (2011) History of colonoscopy with polypectomy History of coronary artery bypass graft (2011) Family History Family History Mother Family history of respiratory disorder, Onset Age: 82 Cerebrovascular accident Diabetes mellitus Hypertension Father Family history of alcoholism Social History Social History (Updated 07/28/23 @ 22:59 by Brooke Thrasher PA-C) Social History: Surrogate medical decision maker: Nancy Génesis, spouse. Code status: Do not resuscitate. Smoking status: Never smoker Second hand tobacco smoke exposure: No Alcohol intake: never Substance use: current Substance use type: does not use Lack of Transportation: No Lack of Food: Never True Current Housing: I Have Housing Concerned About Future Housing: No Difficulty Paying Gas/Electric Bills: No Difficulty Paying for Meds: No Currently Unemployed: No Education: Master's Degree or Higher Difficulty w/ Childcare or Family Care: No Living arrangements: with family Additional living arrangements comments: Lives with spouse in [place]. Occupation/Education: retired Additional occupation/education comments: [employer]
--- NOTE | 2023-07-28 20:29 | PC.NURSE ---
Please see previous day shift Nurses note about intubation.
[2023-07-28] MEDS: MIDAZOLAM 100MG/NS 100ML(*CRX) 100 MG/100 ML BAG IV CONT (20:42)
--- NOTE | 2023-07-28 21:50 | PC.NURSE ---
Pt to CT at this time with RT.
--- NOTE | 2023-07-28 22:20 | PC.NURSE ---
Pt returned to ed room 13 at this time. Pt reconnected to room monitor from transport monitor. Pt continues to be restless, midazolam restarted. ERP Notified.
[2023-07-28 22:27] LABS: Alveolar/Arterial O2 Gradient 146.1 mmHg; Base Excess ABG 23.2 mEq/l (+/-2.0); Fractional Inspired Oxygen 80 %; HCO3 ABG 51.2 mEq/l (22.0-26.0); Oxygen Content ABG 13.3 %vol (16.0-22.0); Oxygen Saturation ABG 99.7 % (95.0-100.0); Oxyhemoglobin 98.1 % THb (90.0-100.0); PO2 ABG 336.3 mmHg (80.0-100.0); pH ABG 7.404 (7.350-7.450)
[2023-07-28 22:28] LABS: Modified Allen's Test Pass; PCO2 ABG 83.8 mmHg (35.0-45.0); Site Drawn RIGHT RADIAL
[2023-07-28 22:29] LABS: Arterial Blood Gas PEEP 5 cmH2O; Arterial Blood Gas Tidal Volume 380 ml; Arterial Blood Gas Vent Mode CMV; Arterial Blood Gas Ventilator rate 16 /MIN; Device VENTILATOR
[2023-07-28 23:20] LABS: Lactic Acid Reflex 1.3 mmol/L (0.7-2.0)
[2023-07-28] MEDS: DEXTROSE 5%/0.45% SOD CHL 1,000 ML 150 ML IV CONT (23:26)
[2023-07-28] MEDS: MINERAL OIL/WHITE PETROLATUM OINTMENT 1 APPLIC EACH EYE (23:27)
--- NOTE | 2023-07-28 23:27 | PC.NURSE ---
D10 stopped at this time and D4 1/4NS started.
[2023-07-29] VITALS (17 sets, daily range): BP systolic 81–147; BP diastolic 50–66; PULSE 67–88; RESP 16–24; TEMP 36.9–37.2; O2SAT 90–100; BMI 16.1
[2023-07-29] MEDS: methylPREDNISolone SOD SUCC 125 MG VIAL IV PUSH (00:07)
--- NOTE | 2023-07-29 00:50 | ADMGEN ---
This patient, Rasta Capps, was admitted to Intensive Care Unit-6. Patient/family oriented to hospital policies and general routines including ID bracelet, bed and alarms, visiting hours, pain management, procedures, bathroom and other care routines, personal items, smoking policy, room service/diet, and visiting hours. Information on how to activate the Rapid Response Team has been discussed. Patient/Family are encouraged to report perceived risks to care and to ask questions if they do not understand what they are told or what they should do.
[2023-07-29] MEDS: IPRATROPIUM 0.5 MG/ALBUTEROL SULFATE 2.5 MG AMPUL.NEB 3 ML INHALATION ×2 (01:27→07:20)
[2023-07-29 02:15] LABS: Glucose Point of Care 122 mg/dl (65-105)
[2023-07-29 03:36] LABS: MRSA (PCR) NOT DETECTED (NOT DETECTE)
[2023-07-29 03:54] LABS: Basophils Percent Auto 0.3 % (0.2-1.2); Hematocrit 29.4 % (42.0-52.0); Hemoglobin 8.3 g/dL (14.0-18.0); Immature Granulocyte Absolute 0.04 K/mm3 (0.00-0.031); Immature Granulocyte Percent A 0.5 % (0-0.5); Lymphocytes Absolute Auto 0.51 K/mm3 (0.9-3.2); Lymphocytes Percent Auto 6.5 % (18.3-44.2); Mean Corpuscular HGB Conc 28.2 g/dl (32-36); Mean Corpuscular Hemoglobin 29.6 pg (26-34); Mean Platelet Volume 9.7 fl (7.4-10.4); Monocytes Absolute Auto 0.3 K/mm3 (0.1-0.6); Neutrophils Percent Auto 88.7 % (45.5-73.1); Platelet Count Result 130 k/mm3 (150-375); White Blood Count 7.8 K/mm3 (4.5-10.0)
[2023-07-29 04:14] LABS: Anisocytosis 1+; Hypochromasia 1+; Platelet Estimate Slightly Decreased (Adequate); Schistocytes None Seen; Stomatocytes 1+
[2023-07-29 04:37] LABS: Blood Urea Nitrogen 36 mg/dL (9-20); Calcium 9.1 mg/dL (8.4-10.2); Carbon Dioxide > 40 mmol/L (22-30); Chloride 87 mmol/L (98-107); Estimated CRCL calculation 49 ml/min; Estimated Glomerular Filt Rate > 60; Glucose 149 mg/dL (65-110); Potassium 4.1 mmol/L (3.4-5.0); Sodium 135 mmol/L (137-145)
[2023-07-29] MEDS: DEXTROSE 5%/0.45% SOD CHL 1,000 ML 150 ML IV CONT (05:58)
[2023-07-29 06:05] LABS: Alveolar/Arterial O2 Gradient 82.5 mmHg; Base Excess ABG 19.5 mEq/l (+/-2.0); Fractional Inspired Oxygen 30 %; HCO3 ABG 46.2 mEq/l (22.0-26.0); PO2 ABG 52.7 mmHg (80.0-100.0); PO2 FiO2 Ratio Arterial Blood 1.76 %; Total Hemoglobin 9.8 g/dL (12.0-18.0); pH ABG 7.456 (7.350-7.450)
[2023-07-29] MEDS: methylPREDNISolone SOD SUCC 40 MG VIAL 60 MG IV PUSH (06:09)
[2023-07-29 06:14] LABS: Oxygen Saturation ABG 87.4 % (95.0-100.0)
[2023-07-29 06:15] LABS: Device VENTILATOR; Modified Allen's Test Pass; Oxyhemoglobin 87.1 % THb (90.0-100.0); Site Drawn RIGHT RADIAL
[2023-07-29 06:16] LABS: Arterial Blood Gas PEEP 5 cmH2O; Arterial Blood Gas Tidal Volume 380 ml; Arterial Blood Gas Vent Mode CMV; Arterial Blood Gas Ventilator rate 16 /MIN
--- NOTE | 2023-07-29 08:30 | PC.NURSE ---
would like to hold off on blood cultures and antibiotics until her children are here to have family conference with the doctor. She believes they will make the patient comfort care.
[2023-07-29] MEDS: FAMOTIDINE 20 MG/2 ML VIAL IV PUSH (08:34)
[2023-07-29] MEDS: MINERAL OIL/WHITE PETROLATUM OINTMENT 1 APPLIC EACH EYE (08:34)
[2023-07-29 09:32] LABS: Influenza A QL RT-PCR Negative (Negative); Influenza B QL RT-PCR Negative (Negative); RSV RNA, RT-PCR Negative (Negative); SARS-CoV-2 RNA PCR Negative (Negative)
--- NOTE | 2023-07-29 10:34 | WPDCNINT ---
Assessment and Plan Assessment and plan (1) Acute hypercapnic respiratory failure: Code(s): J96.02 - Acute respiratory failure with hypercapnia Status: Acute Assessment and Plan: Acute hypercapnic respiratory failure likely related to interstitial lung disease flare, not using his APAP at home. -currently intubated CMV mode, peep of 5 and 30% FiO2 -chest x-ray reviewed -sedated with fentanyl and Versed infusion -continue bronchodilators -started on antibiotics for possible pneumonia -discussed with spouse and children x4, they have decided to make him comfort measures and withdraw support as these were his wishes. - (2) Acute on chronic respiratory failure with hypoxia and hypercapnia: Code(s): J96.21 - Acute and chronic respiratory failure with hypoxia; J96.22 - Acute and chronic respiratory failure with hypercapnia Status: Acute Assessment and Plan: As above (3) Chronic interstitial lung disease: Code(s): J84.9 - Interstitial pulmonary disease, unspecified Status: Acute Assessment and Plan: Has a history of interstitial lung disease, according the spouse he was following up with the [facility], he has stopped following them as they have nothing else to offer at this time due to the severity of his pulmonary fibrosis -recommended ER to start Solu-Medrol possible interstitial lung disease flare (4) Type 2 diabetes mellitus: Code(s): E11.9 - Type 2 diabetes mellitus without complications Status: Acute Assessment and Plan: Sliding scale insulin and Accu-Cheks Plan DVT prophylaxis: Lovenox Stress ulcer prophylaxis: Protonix Nutrition: NPO Code Status: DNR Critical Care Time Spent: 53 minutes Discussed with patient's , and children x4 in the conference room, updated them with patient's condition and plan of care. The and the children have decided to withdraw support and make him comfort measures. I did explain to them the process. I answered all questions. Comfort care orders were placed in the chart. Bedside nurse Alyssa was with me during the family meeting in the conference room Due to a high probability of clinically significant, life threatening deterioration, the patient required my highest level of preparedness to intervene emergently and I personally spent this critical care time directly and personally managing the patient. This critical care time included obtaining a history; examining the patient; pulse oximetry; ordering and review of studies; arranging urgent treatment with development of a management plan; evaluation of patient's response to treatment; frequent reassessment; and discussions with other providers. It was exclusive of separately billable procedures and treating other patients and teaching time. Please see Assessment and Plan section and the rest of the note for further information on patient assessment and treatment This dictation may have been done utilizing a voice recognition system. Attempts have been made to correct errors. However, there may be uncorrected grammatical, spelling, and recognitions errors present. Relay Shop Tester Consult Note Consult date: 07/29/23 Reason for consult: Acute hypercapnic respiratory failure requiring HD patient on 07/28/2023, chronic interstitial disease with possible flare HPI: Rasta Capps is a 77 year old male with significant past medical history of chronic hypoxic respiratory failure, chronic interstitial lung disease, coronary artery disease, history of colonic polyps, idiopathic pulmonary fibrosis, later to alkalosis, asthma, type 2 diabetes presented the ED on 07/28/2023 via EMS with complains of unresponsiveness. According the spouse patient has been lethargic over the last 2 days, and on the day of admission he was found unresponsive with this white EMS was called and patient brought to the ER. In the ER patient was found to have CO2 of 159 and a p
[2023-07-29] MEDS: LORazepam INJ (*CRX) 2 MG/ML VIAL IV PUSH (10:58)
[2023-07-29] MEDS: MORPHINE SULFATE INJ (*CRX) 10 MG/ML AMP 5 MG IV PUSH (10:58)
--- NOTE | 2023-07-29 11:32 | PC.NURSE ---
Patient extubated at 11am to room air for comfort care. Family immediately came back to patient's bedside. Patient at 1123. Doctors notified.
--- NOTE | 2023-07-29 17:30 | PM.DDS ---
Discharge Summary Date and Time Date of : 07/29/23 Time of : 11:23 Provider Pronounced By: EARNESTINE Shah RN Probable Cause of Probable Cause of : Pneumonia Interstitial lung disease Summary Hospital Course: 77-year-old male with past medical history of chronic hypoxic respiratory failure chronic interstitial lung disease coronary artery disease history of colonic polyps idiopathic pulmonary fibrosis asthma type 2 diabetes presented on 07/28/2023 with unresponsiveness. Patient has been lethargic over the past 2 days and on the day of admission he was found unresponsive for which EMS was called and brought to the ER. He had a CO2 of 159 and pH of 7.175. Patient was intubated upon arrival for airway protection. Repeat ABG improved and was transferred to the ICU for further treatment. Patient uses 3-4 L oxygen at all times. Supposed to wear APAP machine while sleeping at home which he does not tolerate well as well. He had periods of confusion over the last several days. Patient was started on bronchodilators and antibiotics for possible pneumonia. Patient remained sedated on ventilator in the ICU. Goals of care discussion was made with the family and subsequently decision was made to switch to comfort measures and withdrawal of care. Patient subsequently . Redness arrangements were made Additional Data Confirmation of as documented by pronouncing clinician: Pupillary Reflex, Palpable Pulses, Response to Stimuli, Heart Tones and Breath Sounds Name of Provider Notified: Miguel A Time Provider Notified: 11:25 Provider Requests Autopsy: No Family Requests Autopsy: No Main Line Assembler Notified: Yes Date [facility] Notified of : 07/29/23 Time [facility] Notified of : 11:50
== END 2023-07-29 11:23 | disposition expired | DRG 208 ==
LOC: ANHED 19:26 → ANHICU 07-29 00:12
PROVIDERS: Family Medicine; Internal Medicine; Admitting Provider Internal Medicine; Emergency Provider Preventive Medicine Aerospace Medicine; PCP Family Medicine; Visit Provider Internal Medicine
DX: J96.02 Acute respiratory failure with hypercapnia (principal); J18.9 Pneumonia, unspecified organism; J96.21 Acute and chronic respiratory failure with hypoxia; J84.10 Pulmonary fibrosis, unspecified; I25.10 Atherosclerotic heart disease of native coronary artery without angina pectoris; D64.9 Anemia, unspecified; E11.9 Type 2 diabetes mellitus without complications; Z20.828 Contact with and (suspected) exposure to other viral communicable diseases; Z79.82 Long term (current) use of aspirin; Z22.7 Latent tuberculosis; Z95.2 Presence of prosthetic heart valve; Z95.1 Presence of aortocoronary bypass graft; Z99.81 Dependence on supplemental oxygen
CPT/HCPCS: 31500; 36415; 36600; 70450; 80048; 80053; 82375; 82805; 82948; 83050; 83605; 84484; 85025; 85610; 87637; 87641; 93005; 94002; 94003; 94640; 96361; 96365; 96366; 96375; 96376; 99291; G0378; J0330; J2060; J2250; J2270; J2920; J2930; J3010